=== PATIENT | male | born 1945 | race Caucasian/White ===

== ENCOUNTER 2016-11-29 11:40 | Inpatient (IN) | payer MEDICARE, BC ==
[2016-11-29] MEDS ORDERED: Acetaminophen TAB* 325 MG PO ONE (11:56)
[2016-11-29] MEDS: NS 0.9% 1000 ML* 4,000 ML IV ONE ×4 (12:00→16:00)
[2016-11-29] MEDS ORDERED: Albuterol/Ipratropium NEB.SOL* Albuterol 2.5 MG/Ipratropium 0.5 MG 3 ML INH ONE (12:10)
[2016-11-29] MEDS ORDERED: Levofloxacin 750 MG IVPREMIX(* 750 MG/150 ML BAG IVPB ONE (12:13)
[2016-11-29] MEDS ORDERED: cefTRIAXone VIAL(*) 1,000 MG in NS 0.9% 50 ML* 50 ML IVPB ONE (12:13)
[2016-11-29 12:18] LABS: Hematocrit 41 % (42-52); Hemoglobin 13.8 g/dl (14.0-18.0); Mean Corpuscular HGB Conc 34 g/dl (31-36); Mean Corpuscular Hemoglobin 30 pg (27-31); Mean Corpuscular Volume 89 fL (80-94); Mean Platelet Volume 9 um3 (7.4-10.4); Red Blood Count 4.64 10^6/ul (4.0-5.4); Red Cell Distribution Width 14 % (10.5-15); White Blood Count 16.2 10^3/ul (3.5-10.8)
[2016-11-29 12:19] LABS: Add Diff/Slide Review? Slide Review Added; Comments Flag Yes
--- NOTE | 2016-11-29 12:26 | RAD ---
Indication: Cough, fever. Single frontal view of the chest performed at 1215 hours was reviewed. Comparison is made with previous exam dated November 27, 2016. No mediastinal shift is noted. Heart is of normal size and configuration. Bibasilar atelectasis is noted. No alveolar consolidation is noted. IMPRESSION: HYPERINFLATED LUNG HAWTHORNE WITH BIBASILAR ATELECTASIS.
[2016-11-29] MEDS ORDERED: Albuterol/Ipratropium NEB.SOL* Albuterol 2.5 MG/Ipratropium 0.5 MG 3 ML ONE (12:29)
[2016-11-29 12:37] LABS: Troponin I 0.02 ng/mL (<0.04)
[2016-11-29 12:38] LABS: Albumin 3.3 g/dL (3.2-5.2); BUN/Creatinine Ratio 18.8 (8-20); Calcium 8.9 mg/dL (8.6-10.3); EGFR African American 122.9 (>60); EGFR Non-African American 95.6 (>60); Globulin 3.5 g/dL (2-4); Potassium 3.5 mmol/L (3.5-5.0); Total Bilirubin 0.6 mg/dL (0.2-1.0); Total Protein 6.8 g/dL (6.4-8.9)
[2016-11-29 13:23] LABS: C Reactive Protein 197.9 mg/L (< 5.00)
--- NOTE | 2016-11-29 14:11 | RAD ---
Indication: Syncope. Head injury. CT brain was performed without IV contrast. Ventricular structures are midline. No midline shift is noted. The extraction spaces are unremarkable. There is no evidence of intracranial mass or hemorrhage. No other high or low density lesions are identified. There is mucosal thickening and air-fluid levels in the maxillary sinuses. Opacification of the sphenoid and ethmoid air cells are also noted. IMPRESSION: No intracranial mass or hemorrhage is noted. Chronic and acute sinusitis involving the ethmoid air cells, maxillary sinuses and sphenoid sinuses bilaterally.
--- NOTE | 2016-11-29 15:28 | ED ---
Corky Knapp Rebecca, scribed for Ashwin Marshall MD on 11/29/16 at 1211 . Syncope/Near Syncope - HPI Summary HPI Summary: Pt is a 71 y/o M BIBA who presents to ED s/p syncopal episode. Reports lightheadedness prior to episode. Sx aggravated by nothing, alleviated by spontaneous resolution. Positive LOC and associated head trauma. C/o WAN which was present prior to fall. Additionally c/o chills, fever, productive cough ( discolored phlegm), generalized muscle aches and decreased appetite. Denies CP, edema, neck pain and rashes. Is not on a blood thinner. No PMHx DM. Reports he has been ill for 1 week and had a CXR performed 4 days ago which showed no PNA. He has been on Zithromax, Prednisone, an albuterol inhaler and antitussive for 2 days without relief. - History Of Current Complaint Chief Complaint: EDSyncope Time Seen by Provider: 11/29/16 11:51 Hx Obtained From: Patient Onset/Duration: Sudden Onset Context: Loss Of Consciousness Activity At Onset: Unknown Associated Head Trauma: Yes Aggravating Factor(s): Nothing Alleviating Factor(s): Spontaneous Resolution Associated Signs And Symptoms: Decreased Oral Intake, Head Trauma (Recent), Lightheadedness - prior to LOC, Other - Generalized muscle aches - Allergies/Home Medications Allergies/Adverse Reactions: Allergies Allergy/AdvReac Type Severity Reaction Status Date / Time ENVIRONMENTAL/SEASONAL Allergy EYES Uncoded 06/04/16 09:04 HAYFEVER WATERY, SNEEZE PMH/Surg Hx/FS Hx/Imm Hx Endocrine/Hematology History: Denies: Hx Diabetes, Hx Systemic Lupus Erythematosus Cardiovascular History: Reports: Hx Hypertension - ON MEDICATION Denies: Hx Congestive Heart Failure, Hx Coronary Artery Disease Respiratory History: Reports: Hx Asthma, Hx Sleep Apnea - 11/2013 new CPAP use, compliant GI History: Reports: Hx Gastroesophageal Reflux Disease - CONTROL WITH MEDICATION, Other GI Disorders - acid reflux History: Reports: Other Problems/Disorders - bladder scraping and bladder CA Denies: Hx Kidney Infection, Hx Kidney Stones, Hx Renal Disease Musculoskeletal History: Reports: Hx Arthritis - BILATERAL HANDS, POSSIBLE BACK , Hx Back Problems - sciatica, Hx Tendonitis - RIGHT INNER ANKLE AREA Denies: Hx Rheumatoid Arthritis Sensory History: Reports: Hx Contacts or Glasses - GLASSES, Hx Hearing Aid - BILATERAL - STATES WILL LEAVE HOME Opthamlomology History: Reports: Hx Contacts or Glasses - GLASSES Neurological History: Reports: Hx Migraine - 1-2 PER MONTH, Other Neuro Impairments/Disorders - sciatica Psychiatric History: Reports: Hx Depression - CONTROL WITH MEDICATION - Cancer History Cancer Type, Location and Year: leukemia 2004, bladder CA 2008, lymphoma 2010, bladder CA 2011 Hx Chemotherapy: Yes - Surgical History Surgery Procedure, Year, and Place: spleenectomy 2005, vasectomy, bladder scrapings x3, port implant and removal Hx Anesthesia Reactions: No Infectious Disease History: No Infectious Disease History: Denies: Traveled Outside the [place] in Last 30 Days - Family History Known Family History: Positive: Other - CHF - Social History Alcohol Use: Rare Substance Use Type: Reports: None Hx Tobacco Use: No Review of Systems Positive: Fever, Chills, Other - Generalized muscle aches Negative: Chest Pain Positive: Cough - productive Positive: Other - Decreased appetite Positive: Other - Denies neck pain. Negative: Edema Negative: Rash Positive: Headache, Syncope - positive LOC All Other Systems Reviewed And Are Negative: Yes Physical Exam - Summary Physical Exam Summary: The patient is well-nourished in no acute distress and in no acute pain. The skin is warm, diaphoretic and skin color reflects adequate perfusion. Decreased skin turgor. HEENT: The head is normocephalic and atraumatic. The pupils are equal and reactive. The conjunctivae are clear and without drainage. Nares are patent and without drainage. Mouth reveals dry mucous membranes and the throat is without erythema and exudate. Erythema on the hard palate. The external ears are intact. The ear canals are patent and without drainage. The tympanic membranes are intact. Neck is supple with full range of motion and non-tender. There are no carotid bruits. There is no neck vein distension. Respiratory: Chest is non-tender. Breath sounds are symmetrical and equal. Rales, rhonchi and wheezing. Cardiovascular: Hear is regular rate and rhythm. There is no murmur or rub auscultated. There is no peripheral edema and pulses are symmetrical and equal. Abdomen: The abdomen is obese and non-tender. There are normal bowel sounds heard in all four quadrants and there is no organomegaly palpated. Musculoskeletal: There is no back pain noted. Extremities are non-tender with full range of motion. Capillary refill 2 seconds. There is no peripheral edema or calf tenderness elicited. Neurological: Patient is alert and oriented to person, place and time. The patient has symmetrical motor strength in all four extremities. Cranial nerves are grossly intact. Deep tendon reflexes are symmetrical and equal in all four extremities. Psychiatric: The patient has an appropriate affect and does not exhibit any anxiety or depression. Triage Information Reviewed: Yes Vital Signs On Initial Exam: Initial Vitals Temp Pulse Resp BP Pulse Ox 100.7 F 90 18 142/76 90 11/29/16 11:44 11/29/16 11:44 11/29/16 11:44 11/29/16 11:44 11/29/16 11:44 Vital Signs Reviewed: Yes Diagnostics - Vital Signs Vital Signs Temp Pulse Resp BP Pulse Ox 11/29/16 11:44 100.7 F 90 18 142/76 90 - Laboratory Lab Results: Lab Results 11/29/16 11/29/16 11/29/16 Range/Units 12:00 12:00 12:00 WBC 16.2 H (3.5-10.8) 10^3/ul RBC 4.64 (4.0-5.4) 10^6/ul Hgb 13.8 L (14.0-18.0) g/dl Hct 41 L (42-52) % MCV 89 (80-94) fL MCH 30 (27-31) pg MCHC 34 (31-36) g/dl RDW 14 (10.5-15) % Plt Count 243 (150-450) 10^3/ul MPV 9 (7.4-10.4) um3 Neut % (Auto) 80.6 (38-83) % Lymph % (Auto) 4.5 L (25-47) % [place] % (Auto) 14.5 H (1-9) % Eos % (Auto) 0 (0-6) % Baso % (Auto) 0.4 (0-2) % Absolute Neuts (auto) 13.1 H (1.5-7.7) 10^3/ul Absolute Lymphs (auto) 0.7 L (1.0-4.8) 10^3/ul Absolute Monos (auto) 2.4 H (0-0.8) 10^3/ul Absolute Eos (auto) 0 (0-0.6) 10^3/ul Absolute Basos (auto) 0.1 (0-0.2) 10^3/ul Absolute Nucleated RBC 0 10^3/ul Nucleated RBC % 0 INR (Anticoag Therapy) 1.06 (0.89-1.11) APTT 24.4 L (26.0-36.3) seconds Sodium 131 L (133-145) mmol/L Potassium 3.5 (3.5-5.0) mmol/L Chloride 96 L (101-111) mmol/L Carbon Dioxide 27 (22-32) mmol/L Anion Gap 8 (2-11) mmol/L BUN 15 (6-24) mg/dL Creatinine 0.80 (0.67-1.17) mg/dL Est GFR ( Amer) 122.9 (>60) Est GFR (Non-Af Amer) 95.6 (>60) BUN/Creatinine Ratio 18.8 (8-20) Glucose 121 H (70-100) mg/dL Lactic Acid (0.5-2.0) mmol/L Calcium 8.9 (8.6-10.3) mg/dL Total Bilirubin 0.60 (0.2-1.0) mg/dL AST 24 (13-39) U/L ALT 24 (7-52) U/L Alkaline Phosphatase 54 (34-104) U/L Troponin I 0.02 (<0.04) ng/mL C-Reactive Protein 197.90 H (< 5.00) mg/L Total Protein 6.8 (6.4-8.9) g/dL Albumin 3.3 (3.2-5.2) g/dL Globulin 3.5 (2-4) g/dL Albumin/Globulin Ratio 0.9 L (1-3) Procalcitonin (<0.6) ng/mL Influenza A (Rapid) (Negative) Influenza B (Rapid) (Negative) 11/29/16 11/29/16 11/29/16 Range/Units 12:00 12:00 13:06 WBC (3.5-10.8) 10^3/ul RBC (4.0-5.4) 10^6/ul Hgb (14.0-18.0) g/dl Hct (42-52) % MCV (80-94) fL MCH (27-31) pg MCHC (31-36) g/dl RDW (10.5-15) % Plt Count (150-450) 10^3/ul MPV (7.4-10.4) um3 Neut % (Auto) (38-83) % Lymph % (Auto) (25-47) % [place] % (Auto) (1-9) % Eos % (Auto) (0-6) % Baso % (Auto) (0-2) % Absolute Neuts (auto) (1.5-7.7) 10^3/ul Absolute Lymphs (auto) (1.0-4.8) 10^3/ul Absolute Monos (auto) (0-0.8) 10^3/ul Absolute Eos (auto) (0-0.6) 10^3/ul Absolute Basos (auto) (0-0.2) 10^3/ul Absolute Nucleated RBC 10^3/ul Nucleated RBC % INR (Anticoag Therapy) (0.89-1.11) APTT (26.0-36.3) seconds Sodium (133-145) mmol/L Potassium (3.5-5.0) mmol/L Chloride (101-111) mmol/L Carbon Dioxide (22-32) mmol/L Anion Gap (2-11) mmol/L BUN (6-24) mg/dL Creatinine (0.67-1.17) mg/dL Est GFR ( Amer) (>60) Est GFR (Non-Af Amer) (>60) BUN/Creatinine Ratio (8-20) Glucose (70-100) mg/dL Lactic Acid 1.0 (0.5-2.0) mmol/L Calcium (8.6-10.3) mg/dL Total Bilirubin (0.2-1.0) mg/dL AST (13-39) U/L ALT (7-52) U/L Alkaline Phosphatase (34-104) U/L Troponin I (<0.04) ng/mL C-Reactive Protein (< 5.00) mg/L Total Protein (6.4-8.9) g/dL Albumin (3.2-5.2) g/dL Globulin (2-4) g/dL Albumin/Globulin Ratio (1-3) Procalcitonin 1.5 H (<0.6) ng/mL Influenza A (Rapid) Positive H (Negative) Influenza B (Rapid) Negative (Negative) Result Diagrams: 11/29/16 12:00 11/29/16 12:00 Lab Statement: Any lab studies that have been ordered have been reviewed, and results considered in the medical decision making process. - Radiology CXR Xray Interpretation: Positive (See Comments) - HYPERINFLATED LUNG HAWTHORNE WITH BIBASILAR ATELECTASIS. Radiology Interpretation Completed By: Radiologist - CT Brain CT CT Interpretation Completed By: Radiologist - No intracranial mass or hemorrhage is noted. Chronic and acute sinusitis involving the ethmoid air cells , maxillary sinuses and sphenoid sinuses bilaterally. - EKG 1139 Cardiac Rate: NL - 89 bpm EKG Rhythm: Sinus Rhythm - normal EKG Interpretation: RBBB and intraventricular conduction delay Course/Dx Assessment/Plan: Pt is a 71 y/o M who presents to ED s/p syncopal episode with positive LOC. Additionally c/o chills, fever, productive cough (discolored phlegm), generalized muscle aches and decreased appetite. Denies CP, edema, neck pain and rashes. CXR reveals: HYPERINFLATED LUNG HAWTHORNE WITH BIBASILAR ATELECTASIS. CT brain reveals no acute findings. EKG reveals no acute STEMI. Discussed care of pt with Dr. Clement, hospitalist, who agrees to admit pt. Pt will be admitted to hospitalist services - Diagnoses Differential Diagnosis/HQI/PQRI: Positive: Dysrhythmia, Hypovolemia, Myocardial Infarction, Vasovagal Episode, Other - pneumonia, influenza, sepsis, sinusitis Provider Diagnoses: PNA (pneumonia), Syncope, Influenza - Physician Notifications Discussed Care Of Patient With: Dr. Clement, hospitalist, who agrees to admit pt. Time Discussed With Above Provider: 14:45 Discharge - Discharge Plan Condition: Good Disposition: ADMITTED TO [facility] Referrals: Sherri Braun MD [Primary Care Provider] - The documentation as recorded by the Corky esparza Rebecca accurately reflects the service I personally performed and the decisions made by il, Ashwin Marshall MD.
[2016-11-29 15:37] LABS: Urine Bacteria Absent (Absent); Urine Bilirubin Negative (Negative); Urine Glucose Negative (Negative); Urine Nitrite Negative (Negative)
[2016-11-29] MEDS ORDERED: NS 0.9% 1000 ML* 1,000 ML IV SCH (16:15)
[2016-11-29] MEDS ORDERED: methylPREDNISolone SOD 40 MG* 1 ML VIAL IV SCH (17:00)
--- NOTE | 2016-11-29 19:15 | HP ---
HISTORY AND PHYSICAL: DATE OF ADMISSION: 11/29/16 PROVIDER: Carole Rojas NP ATTENDING PHYSICIAN: Dr. Tariq * (dictated by Carole Rojas NP). PRIMARY CARE PROVIDERS: Enzo Nuñez NP; Dr. Braun. CHIEF COMPLAINT: Syncope, upper respiratory illness. HISTORY OF PRESENT ILLNESS: Mr. Chavez is a 71-year-old male with a past medical history of CLL, bladder CA, lymphoma, hypertension, and hyperlipidemia, who presents to the emergency department today after syncopal episode and also reports upper respiratory illness. Mr. Chavez reports that approximately 6 to 7 days ago, he developed body aches, cough, shortness of breath, fever, chills, decreased appetite. He reports prior to that, his had similar symptoms and believes he caught it from his . The patient has continued to feel sick throughout the week mostly resting and has continued to have headache, body ache, productive cough, and went to see his primary care doctor this past , 2 days ago, and was diagnosed with bronchitis and sent home on azithromycin, prednisone, and albuterol. The patient reports that day he was sitting in his chair and was having a "coughing fit" and reports that he passed out for a few seconds and came to. He felt okay and did not seek any treatments. , when he was evaluated by his primary, he did undergo a chest x-ray which showed bibasilar atelectasis. The patient reports that today he woke up and he actually felt better for the first time, less body aches, continued to have a cough, but felt that it was less severe. He did have a headache this morning, but he noted his appetite to be slightly improved. He was eating at the table when he stood up and had a coughing fit and had a syncopal episode, passing out, and hitting his forehead on the on the way down. His was at home and reports that he came to fairly quickly and the patient was brought to the emergency department for further evaluation. In the emergency department, the patient reports headache. He denies vision changes. No numbness, tingling, or speech changes. He underwent a brain CT which was negative for intracranial mass or hemorrhage. There was chronic and acute sinusitis noted in the ethmoid air cells, maxillary sinuses, and sphenoid sinuses bilaterally. The patient underwent a chest x-ray which showed bibasilar atelectasis. He was noted to be hypoxic and is currently on 3 L in the emergency department with O2 sat of 97%. The patient has a leukocytosis of 16.2 as well as a procalcitonin of 1.5, CRP of 197, and noted to have a sodium of 131. As well, the patient tested positive for influenza A. The patient reports a 15-pound weight loss in the past week due to poor intake, reporting his baseline weight is about 253 pounds and today, he noted to be 238. Please note this is taken on two different scales. The patient denies any sore throat, ear pain, nausea, or vomiting. Reports 2 episodes of loose stools a couple of days ago. Otherwise, no diarrhea. No abdominal pain. Hospital Medicine will admit the patient for sepsis secondary to influenza A with possible acute bronchitis and sinusitis. Per the patient, he underwent a cardiac stress test approximately 7 to 8 days ago prior to getting ill due to having palpitations and intermittent "chest pains" and reports that he is following up with Dr. Fitzpatrick on December 04 as an outpatient. The patient denies any chest pain currently. PAST MEDICAL HISTORY: 1. Distant tobacco abuse, smoking 3 packs a day, quitting approximately 23 years ago. 2. 2003, diagnosed with CLL, followed by Dr. Glaser, in remission. 3. 2008, diagnosed with bladder cancer. 4. 2010, diagnosed with lymphoma, in remission. 5. 2011, diagnosed with return of bladder cancer, now in remission. 6. History of skin cancer, basal and squamous cell melanoma. 7. Hypertension. 8. Hyperlipidemia. 9. 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 HOME MEDICATIONS: 1. Aspirin 81 mg p.o. bedtime. 2. Aspirin/acetaminophen/caffeine 250/250/65 mg 1 tab p.o. daily p.r.n. migraine. 3. Atorvastatin 10 mg p.o. at bedtime. 4. Avodart 0.5 mg p.o. q.a.m. 5. Ibuprofen 400 mg p.o. q.6 hours p.r.n. 6. MiraLAX 17 g p.o. every other day p.r.n. 7. Sodium chloride 5% ophth ointment 1 application both eyes bedtime. 8. Sodium chloride 5% ophth 1 drop both eyes four times a day. 9. Flomax 0.8 mg p.o. bedtime. 10. Valsartan/hydrochlorothiazide 160/12.5 mg 1 tab p.o. daily. ALLERGIES: No known drug allergies, environmental/seasonal, hay fever. FAMILY HISTORY: The patient's mother had a history of breast cancer, coronary artery disease. Father of a dissected aorta. SOCIAL HISTORY: Tobacco history: Three packs a day, quitting 23 years ago, smoking for more than 20 years. Alcohol: One glass of wine a day. 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 He lives at home with his , Jade, who is his healthcare proxy. He has 2 grown children. REVIEW OF SYSTEMS: A 14-point review of systems was performed. All the pertinent positives and negatives are mentioned in the history of present illness. All the remaining systems are negative. PHYSICAL EXAMINATION GENERAL APPEARANCE: A 71-year-old male lying in the emergency department stretcher with at the bedside. Alert and oriented x3 in no acute distress. Appears mildly ill. Appropriate to situation. VITAL SIGNS: Fever 100.7, heart rate 99, respirations 17, O2 sat 97% on 3 L nasal cannula, blood pressure 103/58. HEENT: Head is normocephalic, atraumatic. Pupils equal and reactive to light. Oropharynx is clear. No erythema or exudate noted. Dry mucous membranes. Good dentition. NECK: No cervical or supraclavicular lymphadenopathy. RESPIRATORY: Diminished bilaterally. Right lower lobe, scattered rhonchi. The patient was noted to have a harsh cough. CARDIAC: S1, S2. No murmurs, rubs, or gallops appreciated. No lower extremity edema noted. 2+ DP pulses bilaterally. ABDOMEN: Obese, soft, nontender, nondistended. Normal bowel sounds x4. MUSCULOSKELETAL: Strength is 5/5 throughout. No clubbing or cyanosis noted. Full range of motion in all extremities. NEURO: Cranial nerves II through XII are intact. Moves all extremities equally. Sensation to lower extremities is intact to light touch. PSYCH: Alert and oriented x3. Appropriate to situation. SKIN: No rashes, lesions, or open wounds noted. Warm, pink, and dry. DIAGNOSTIC STUDIES/LAB DATA: Sodium 131, potassium 3.5, chloride 96, carbon dioxide 27, anion gap 8, BUN 15, creatinine 0.80, glucose 121, lactic acid 1.0, calcium 8.9. Total bilirubin 0.60, AST 24, ALT 24, alkaline phosphatase 54. Troponin 0.02. C-reactive protein 197.90, total protein , albumin 3.3, procalcitonin 1.5. WBC 16.2, RBC 4.64, Hgb 13.8, Hct 41, MCV 89, MCH 30, MCHC 34, RDW 14, platelet count 243. INR 1.06, aPTT 24.4. Urinalysis: Specific gravity 1.004, 1+ blood, otherwise negative. Influenza A positive, influenza B negative. Brain CT, impression: No intracranial mass or hemorrhage is noted. Chronic and acute sinusitis involving the ethmoid air cells, maxillary sinuses, and sphenoid sinuses bilaterally. Chest x-ray, impression: Hyperinflated lung dennis with bibasilar atelectasis. EKG: Sinus rhythm at a rate of 89 with right bundle branch block noted in comparison to prior EKG, appears similar, no acute ischemic changes noted. ASSESSMENT AND PLAN: Mr. Chavez is a 71-year-old male with a past medical history of chronic lymphocytic leukemia, lymphoma, bladder cancer, hypertension , and hyperlipidemia, who presents to the emergency department today with report of syncopal episode and upper respiratory symptoms. 1. Sepsis secondary to influenza: The patient's qSOFA is 0; however, the patient does present with a leukocytosis, heart rate of greater than 90, and fever. There is no lactic acidosis. As well, he most likely has acute bronchitis and sinusitis. We will start the patient on Tamiflu and we will continue the patient's azithromycin as he was prescribed as an outpatient as the patient actually reports that he is starting to feel better today. Continue steroid therapy as prescribed as an outpatient and prednisone 40 mg daily. The patient received 4 L of normal saline in the emergency department. We will continue him with normal saline at a rate of 75 mL an hour. Add on sputum culture. DuoNebs q.4 hours while awake, then p.r.n. Mucinex. 2. Syncope. Suspect this is secondary to situational syncope secondary to coughing. We will monitor the patient on telemetry. Initial troponin is negative. We will trend troponins. Obtain orthostatics. Echocardiogram tomorrow. 3. Hyponatremia, mild: Suspect secondary to dehydration. Recheck tomorrow. 4. Normocytic anemia: Unclear etiology. Send stool for occult blood. 5. Chronic lymphocytic leukemia, lymphoma, and bladder cancer: Followed by Dr. Glaser, in remission. 6. Hypertension: The patient currently has soft blood pressures in the emergency department. Hold valsartan/hydrochlorothiazide. Continue to monitor. 7. Hyperlipidemia: Continue atorvastatin. 8. DVT prophylaxis: Heparin subcu. 9. Code status: Full code. The patient's is the healthcare proxy. TIME SPENT: Approximately 60 minutes was spent on this admission. This case was discussed with attending physician, Dr. Tariq, who agrees with the plan of care. CAROLE ROJAS NP CC: Enzo Nuñez NP; Dr. Braun* [id number]/[facility] #: [id number] RICHI
[2016-11-29] MEDS: Acetaminophen TAB* 325 MG PO PRN (19:35)
[2016-11-29] MEDS: Albuterol/Ipratropium NEB.SOL* Albuterol 2.5 MG/Ipratropium 0.5 MG 3 ML INH SCH ×2 (20:07→23:57)
[2016-11-29] MEDS: Aspirin Low Dose CHEW TAB* 81 MG PO SCH (20:23)
[2016-11-29] MEDS: guaiFENesin ER TAB 600 MG PO SCH (20:23)
[2016-11-29] MEDS: Oseltamivir CAP* 75 MG PO SCH (20:24)
[2016-11-29] MEDS: Tamsulosin CAP* 0.4 MG PO SCH (20:24)
[2016-11-29] MEDS: Atorvastatin* 10 MG TAB PO SCH (20:24)
[2016-11-29] MEDS: Sodium Chloride 5% OPTH.SOL* 15 ML BTL BOTH EYES SCH (20:25)
[2016-11-29] MEDS: Heparin VIAL(*) 5000 UNITS/ML VIAL (FIVE THOUSAND) SUBCUT SCH (20:26)
[2016-11-30] MEDS: Albuterol/Ipratropium NEB.SOL* Albuterol 2.5 MG/Ipratropium 0.5 MG 3 ML INH SCH ×3 (00:32→08:10)
[2016-11-30 05:25] LABS: Hematocrit 38 % (42-52); Hemoglobin 12.6 g/dl (14.0-18.0); Mean Corpuscular HGB Conc 33 g/dl (31-36); Mean Corpuscular Hemoglobin 30 pg (27-31); Mean Corpuscular Volume 89 fL (80-94); Mean Platelet Volume 9 um3 (7.4-10.4); Red Blood Count 4.24 10^6/ul (4.0-5.4); Red Cell Distribution Width 14 % (10.5-15); White Blood Count 14.7 10^3/ul (3.5-10.8)
[2016-11-30 05:30] LABS: Add Diff/Slide Review? Slide Review Added; Comments Flag Yes
[2016-11-30 05:47] LABS: Calcium 8.2 mg/dL (8.6-10.3); EGFR African American 132.4 (>60); Potassium 3.9 mmol/L (3.5-5.0)
[2016-11-30] MEDS: Heparin VIAL(*) 5000 UNITS/ML VIAL (FIVE THOUSAND) SUBCUT SCH ×3 (05:59→22:30)
[2016-11-30] MEDS: Finasteride TAB* 5 MG PO SCH (09:17)
[2016-11-30] MEDS: Sodium Chloride 5% OPTH.SOL* 15 ML BTL BOTH EYES SCH ×4 (09:17→22:28)
[2016-11-30] MEDS: Oseltamivir CAP* 75 MG PO SCH ×2 (09:17→22:29)
[2016-11-30] MEDS: predniSONE TAB* 20 MG PO SCH (09:17)
[2016-11-30] MEDS: guaiFENesin ER TAB 600 MG PO SCH (09:17)
[2016-11-30] MEDS: Azithromycin TAB* 250 MG PO SCH (09:17)
[2016-11-30] MEDS ORDERED: GuaiFENesin DM* 5 ML UDC PO PRN (09:47)
[2016-11-30] MEDS ORDERED: Albuterol/Ipratropium NEB.SOL* Albuterol 2.5 MG/Ipratropium 0.5 MG 3 ML INH PRN (09:50)
[2016-11-30] MEDS: Acetaminophen TAB* 325 MG PO PRN (10:24)
--- NOTE | 2016-11-30 10:49 | RAD ---
Indication: Hypoxia. 2 views of the chest demonstrates bibasilar increased density which may represent atelectasis or early pneumonia. No pleural fluid is identified. No mediastinal shift is noted. Findings are more prominent than on previous exam of November 29, 2016. IMPRESSION: Increased density in the lung bases which may represent atelectasis or early infiltrates.
--- NOTE | 2016-11-30 12:19 | ECHO ---
Patient: MEGHANA CANCINO Rec#: [id number] : 1945 Date: 11/30/2016 Age: 71y Height: 175.3 cm / 69.0 in Weight: 112 kg / 246.8 lbs Sex: M BSA: 2.3 Room#: 451 Admit Date#: 11/29/2016 Type: Inpatient Referring: Layla Olivares Reading: Vincent Subramanian MD [id number] Consultant: Rere Youngblood RN RDCS CC: Sherri Braun MD Transthoracic Echocardiogram Indication: Syncope BP: 138/72 HR: 86 Rhythm: NSR with PVCs Findings History: HTN, HLD, CLL, bladder cancer, lymphoma, chemotherapy, former smoker, obesity Technical Comments: The study is technically limited due to patient body habitus. The study is technically limited due to the patient's smoking history. Completed at 1130. Left Ventricle: The left ventricular chamber size is normal. Global left ventricular wall motion and contractility are within normal limits. There is normal left ventricular systolic function. The estimated ejection fraction is 55-60%. Abnormal left ventricular diastolic function is observed. Left Atrium: The left atrium is mildly dilated. Right Ventricle: The right ventricular cavity size is normal. The right ventricular global systolic function is normal. Right Atrium: The right atrium is mildly dilated. Aortic Valve: The aortic valve is trileaflet. The aortic valve leaflets are mildly thickened. There is no evidence of aortic regurgitation. There is no evidence of aortic stenosis. Mitral Valve: The mitral valve leaflets are mildly thickened. There is trace to mild mitral regurgitation. Tricuspid Valve: The tricuspid valve leaflets are normal. There is trace tricuspid regurgitation. Unable to estimate the right ventricular systolic pressure. Pulmonic Valve: The pulmonic valve structure is not well visualized. There is no evidence of pulmonic regurgitation. There is no pulmonic stenosis. Pericardium: There is no significant pericardial effusion. A pericardial fat pad is visualized. Aorta: There is no dilatation of the ascending aorta. There is no dilatation of the aortic arch. The aortic root is normal in size. Pulmonary Artery: The main pulmonary artery is not well visualized. Venous: The inferior vena cava appears normal in size. There is a greater than 50% respiratory change in the inferior vena cava dimension. Conclusions There is normal left ventricular systolic function. The estimated ejection fraction is 55-60%. Global left ventricular wall motion and contractility are within normal limits. The left ventricular chamber size is normal. Abnormal left ventricular diastolic function is observed. The left atrium is mildly dilated. The right atrium is mildly dilated. Functionally benign heart valves. There is no prior echocardiogram available to compare with at this time. Measurements Name Value Normal Range RVDdMajor (2D) 4.3 cm (2.2 - 4.4) RAd ISD 4CH 5.2 cm (3.4 - 4.9) RA (A4C)W 4.3 cm (2.9 - 4.6) IVSd (2D) 1.2 cm (0.6 - 1) LVPWd (2D) 1 cm (0.6 - 1) LVIDd (2D) 4.8 cm (3.6 - 5.4) LVIDs (2D) 4 cm - LV FS (2D) 17 % (25 - 45) Aortic Annulus 2.2 cm (1.4 - 2.6) Ao root diameter (2D) 3 cm (2.1 - 3.5) Ascending Ao 3.4 cm (2.1 - 3.4) Aortic arch 2.5 cm (1.8 - 3.4) LA dimension (AP) 2D 3.7 cm (2.3 - 3.8) LAd ISD 4CH 5.9 cm (2.9 - 5.3) LA ISD 4CH W 4.8 cm (2.5 - 4.5) Name Value Normal Range LA ESV SP 4CH (A/L) 73 ml - LA ESV SP 2CH (A/L) 61 ml - LA ESV BP (A/L) 68 ml - LA ESV BP (A/L) index 30.2 ml/m2 - LA ESV SP 4CH (MOD) 69 ml - LA ESV SP 2CH (MOD) 59 ml - Name Value Normal Range MV E-wave Vmax 1 m/sec - MV deceleration time 190 msec - MV A-wave Vmax 0.97 m/sec - MV E:A ratio 1.1 ratio - LV septal e' Vmax 0.09 m/sec - LV lateral e' Vmax 0.11 m/sec - LV E:e' septal ratio 11.1 ratio - LV E:e' lateral ratio 9.1 ratio - Name Value Normal Range AV Vmax 1.9 m/sec - LVOT Vmax 1.5 m/sec - BRENT Vmax 0.89 m/sec - Name Value Normal Range IVC diameter 1.7 cm - Name Value Normal Range PV Vmax 0.96 m/sec -
[2016-11-30] MEDS: Meclizine TAB* 12.5 MG PO SCH ×2 (12:30→22:28)
--- NOTE | 2016-11-30 14:20 | PN ---
Subjective Date of Service: 11/30/16 Interval History: Patient reports he continues to feel "crappy" but does not improvement compared to the last week. Feels that he is slowly improving. No fevers or chills. Productive cough. Improved appetite today. No Abdominal pain, N/V/D. Denies myalgias. No CP or SOB. No further syncopal episodes. Objective Active Medications: Acetaminophen (Tylenol Tab*) 650 mg PO Q6H PRN PRN Reason: FEVER/PAIN Last Admin: 11/30/16 10:24 Dose: 650 mg Albuterol/Ipratropium (Duoneb Neb.Yamilet*) 1 neb INH Q4H PRN PRN Reason: SHORTNESS OF BREATH Aspirin (Aspirin Low Dose Tab*) 81 mg PO BEDTIME REPLACED BY [facility] Last Admin: 11/29/16 20:23 Dose: 81 mg Atorvastatin Calcium (Lipitor*) 10 mg PO BEDTIME REPLACED BY [facility] Last Admin: 11/29/16 20:24 Dose: 10 mg Azithromycin (Zithromax Tab*) 250 mg PO DAILY REPLACED BY [facility] Last Admin: 11/30/16 09:17 Dose: 250 mg Finasteride (Proscar Tab*) 5 mg PO QAM REPLACED BY [facility] PRN Reason: Protocol Last Admin: 11/30/16 09:17 Dose: 5 mg Guaifenesin/Dextromethorphan (Robitussin Dm*) 10 ml PO Q4H PRN PRN Reason: COUGH Heparin Sodium (Porcine) (Heparin Vial(*)) 5,000 units SUBCUT Q8HR REPLACED BY [facility] Last Admin: 11/30/16 05:59 Dose: 5,000 units Meclizine HCl (Antivert Tab*) 25 mg PO Q8HR REPLACED BY [facility] Last Admin: 11/30/16 12:30 Dose: 25 mg Oseltamivir Phosphate (Tamiflu Cap*) 75 mg PO BID REPLACED BY [facility] Stop: 12/04/16 09:01 Last Admin: 11/30/16 09:17 Dose: 75 mg Prednisone (Deltasone Tab*) 40 mg PO DAILY REPLACED BY [facility] Last Admin: 11/30/16 09:17 Dose: 40 mg Sodium Chloride (Hypertonic) ([place] 128 Opth 5% Opth.Soll*) 1 drop BOTH EYES QID REPLACED BY [facility] Last Admin: 11/30/16 09:17 Dose: 1 drop Tamsulosin HCl (Flomax Cap*) 0.8 mg PO BEDTIME REPLACED BY [facility] Last Admin: 11/29/16 20:24 Dose: 0.8 mg Vital Signs 11/29/16 11/29/16 11/29/16 16:30 17:00 17:09 Temperature 98.6 F Pulse Rate 76 73 Respiratory 16 17 Rate Blood Pressure 109/58 128/52 (mmHg) O2 Sat by Pulse 92 93 Oximetry 11/29/16 11/29/16 11/29/16 18:01 18:02 19:38 Temperature 97.9 F 98.2 F Pulse Rate 72 78 85 Respiratory 20 16 Rate Blood Pressure 139/71 143/74 144/72 (mmHg) O2 Sat by Pulse 93 95 Oximetry 11/29/16 11/29/16 11/30/16 20:00 20:10 00:33 Temperature Pulse Rate 89 80 Respiratory 20 20 Rate Blood Pressure (mmHg) O2 Sat by Pulse 95 95 99 Oximetry 11/30/16 11/30/16 11/30/16 00:56 03:36 08:07 Temperature 98.3 F 97.8 F 97.8 F Pulse Rate 81 78 71 Respiratory 20 20 16 Rate Blood Pressure 146/67 138/72 134/79 (mmHg) O2 Sat by Pulse 96 96 95 Oximetry 11/30/16 11/30/16 08:13 12:05 Temperature 98.8 F Pulse Rate 81 74 Respiratory 16 16 Rate Blood Pressure 142/67 (mmHg) O2 Sat by Pulse 96 94 Oximetry Oxygen Devices in Use Now: Nasal Cannula - 2L NC Appearance: obese male sitting up on the side of the bed in NAD. A+O x3 Eyes: No Scleral Icterus, PERRLA Ears/Nose/Mouth/Throat: NL Teeth, Lips, Gums, Mucous Membranes Moist Neck: NL Appearance and Movements; NL JVP Respiratory: Symmetrical Chest Expansion and Respiratory Effort, - - course rhonchi throughout Cardiovascular: NL Sounds; No Murmurs; No JVD, RRR, No Edema Abdominal: NL Sounds; No Tenderness; No Distention, - - obese, round Lymphatic: No Cervical Adenopathy Extremities: No Edema, No Clubbing, Cyanosis Skin: No Rash or Ulcers, No Nodules or Sclerosis Neurological: Alert and Oriented x 3, NL Sensation, NL Gait, NL Muscle Strength and Tone Lines/Tubes/Other Access: Clean, Dry and Intact Peripheral IV Nutrition: Taking PO's Result Diagrams: 11/30/16 04:43 11/30/16 04:43 Additional Lab and Data: Lab Results 11/29/16 11/29/16 11/29/16 Range/Units 12:00 12:00 12:00 WBC 16.2 H (3.5-10.8) 10^3/ul RBC 4.64 (4.0-5.4) 10^6/ul Hgb 13.8 L (14.0-18.0) g/dl Hct 41 L (42-52) % MCV 89 (80-94) fL MCH 30 (27-31) pg MCHC 34 (31-36) g/dl RDW 14 (10.5-15) % Plt Count 243 (150-450) 10^3/ul MPV 9 (7.4-10.4) um3 Neut % (Auto) 80.6 (38-83) % Lymph % (Auto) 4.5 L (25-47) % [place] % (Auto) 14.5 H (1-9) % Eos % (Auto) 0 (0-6) % Baso % (Auto) 0.4 (0-2) % Absolute Neuts (auto) 13.1 H (1.5-7.7) 10^3/ul Absolute Lymphs (auto) 0.7 L (1.0-4.8) 10^3/ul Absolute Monos (auto) 2.4 H (0-0.8) 10^3/ul Absolute Eos (auto) 0 (0-0.6) 10^3/ul Absolute Basos (auto) 0.1 (0-0.2) 10^3/ul Absolute Nucleated RBC 0 10^3/ul Nucleated RBC % 0 INR (Anticoag Therapy) 1.06 (0.89-1.11) APTT 24.4 L (26.0-36.3) seconds Sodium 131 L (133-145) mmol/L Potassium 3.5 (3.5-5.0) mmol/L Chloride 96 L (101-111) mmol/L Carbon Dioxide 27 (22-32) mmol/L Anion Gap 8 (2-11) mmol/L BUN 15 (6-24) mg/dL Creatinine 0.80 (0.67-1.17) mg/dL Est GFR ( Amer) 122.9 (>60) Est GFR (Non-Af Amer) 95.6 (>60) BUN/Creatinine Ratio 18.8 (8-20) Glucose 121 H (70-100) mg/dL Lactic Acid (0.5-2.0) mmol/L Calcium 8.9 (8.6-10.3) mg/dL Total Bilirubin 0.60 (0.2-1.0) mg/dL AST 24 (13-39) U/L ALT 24 (7-52) U/L Alkaline Phosphatase 54 (34-104) U/L Troponin I 0.02 (<0.04) ng/mL C-Reactive Protein 197.90 H (< 5.00) mg/L Total Protein 6.8 (6.4-8.9) g/dL Albumin 3.3 (3.2-5.2) g/dL Globulin 3.5 (2-4) g/dL Albumin/Globulin Ratio 0.9 L (1-3) Procalcitonin (<0.6) ng/mL Influenza A (Rapid) (Negative) Influenza B (Rapid) (Negative) 11/29/16 11/29/16 11/29/16 Range/Units 12:00 12:00 13:06 WBC (3.5-10.8) 10^3/ul RBC (4.0-5.4) 10^6/ul Hgb (14.0-18.0) g/dl Hct (42-52) % MCV (80-94) fL MCH (27-31) pg MCHC (31-36) g/dl RDW (10.5-15) % Plt Count (150-450) 10^3/ul MPV (7.4-10.4) um3 Neut % (Auto) (38-83) % Lymph % (Auto) (25-47) % [place] % (Auto) (1-9) % Eos % (Auto) (0-6) % Baso % (Auto) (0-2) % Absolute Neuts (auto) (1.5-7.7) 10^3/ul Absolute Lymphs (auto) (1.0-4.8) 10^3/ul Absolute Monos (auto) (0-0.8) 10^3/ul Absolute Eos (auto) (0-0.6) 10^3/ul Absolute Basos (auto) (0-0.2) 10^3/ul Absolute Nucleated RBC 10^3/ul Nucleated RBC % INR (Anticoag Therapy) (0.89-1.11) APTT (26.0-36.3) seconds Sodium (133-145) mmol/L Potassium (3.5-5.0) mmol/L Chloride (101-111) mmol/L Carbon Dioxide (22-32) mmol/L Anion Gap (2-11) mmol/L BUN (6-24) mg/dL Creatinine (0.67-1.17) mg/dL Est GFR ( Amer) (>60) Est GFR (Non-Af Amer) (>60) BUN/Creatinine Ratio (8-20) Glucose (70-100) mg/dL Lactic Acid 1.0 (0.5-2.0) mmol/L Calcium (8.6-10.3) mg/dL Total Bilirubin (0.2-1.0) mg/dL AST (13-39) U/L ALT (7-52) U/L Alkaline Phosphatase (34-104) U/L Troponin I (<0.04) ng/mL C-Reactive Protein (< 5.00) mg/L Total Protein (6.4-8.9) g/dL Albumin (3.2-5.2) g/dL Globulin (2-4) g/dL Albumin/Globulin Ratio (1-3) Procalcitonin 1.5 H (<0.6) ng/mL Influenza A (Rapid) Positive H (Negative) Influenza B (Rapid) Negative (Negative) Assess/Plan/Problems-Billing Assessment: Mr. Chavez is a 71 yo male with a PMH of CLL, bladder CA, lymphoma, HTN and HLD who presented on 11/29 with c/o syncopal episode and upper respiratory illness found to have Influenza. - Patient Problems (1) Sepsis Comment: - resolved. secondary to Influenza A - received a total of 5 liters NS on admission - no lactic acidosis (2) Influenza A Comment: - Influenza A. Slow improvement - Continue Tamiflu for 10 doses. (3) Syncope Comment: - suspect situational cough syncope. No further episodes. No arrythmias noted on Tele. TTE showing 55-60%, global left ventricular wall motion and contractility are WNLs, abnormal left diastolic function is observed, functionally benign heart valves. - D/C Tele (4) Acute bronchitis Comment: - improving, continues to have wild rhonchi and sputum production. increased oxygen requirement 2L NC. Repeat chest xray this morning "Increased density in the lung base which may represent atelectasis or early infiltrates". Afebrile, WBC 14, down from 16, but is on steroids. Will continue to watch and if patient has an increase in oxygen requirements, fever, increased WBCs or clincially appears worse - will tx for PNA, plan to monitor and continue azithromycin only for now as clinically the pt appears to be improving, - last dose tomorrow of azith tomorrow to finish 5 day course - Procalcitonin trending down - Robutussin DM - nebs - Prednisone 40 mg daily, last dose tomorrow to finish 5 day course (5) HTN (hypertension) Comment: - blood pressures SBP 130-140s. - Continue Valsartan, hold HCTZ (6) HLD (hyperlipidemia) Comment: -continue statin (7) CLL (chronic lymphocytic leukemia) Comment: - followed by [facility], in remission (8) Lymphoma Comment: - followed by [facility], in remission (9) DVT prophylaxis Comment: HSQ (10) Full code status Status and Disposition: inpatient with Sepsis secondary to Influenza. Home when medically stable
[2016-11-30] MEDS ORDERED: Valsartan TAB* 160 MG PO ONE (14:34)
[2016-11-30] MEDS: Tamsulosin CAP* 0.4 MG PO SCH (22:29)
[2016-11-30] MEDS: Atorvastatin* 10 MG TAB PO SCH (22:30)
[2016-11-30] MEDS: Aspirin Low Dose CHEW TAB* 81 MG PO SCH (22:30)
[2016-12-01 05:33] LABS: Hematocrit 37 % (42-52); Hemoglobin 12.3 g/dl (14.0-18.0); Mean Corpuscular HGB Conc 34 g/dl (31-36); Mean Corpuscular Hemoglobin 30 pg (27-31); Mean Corpuscular Volume 89 fL (80-94); Mean Platelet Volume 9 um3 (7.4-10.4); Red Blood Count 4.11 10^6/ul (4.0-5.4); Red Cell Distribution Width 14 % (10.5-15); White Blood Count 13.6 10^3/ul (3.5-10.8)
[2016-12-01 05:35] LABS: Add Diff/Slide Review? Slide Review Added; Comments Flag Yes
[2016-12-01] MEDS: Meclizine TAB* 12.5 MG PO SCH ×2 (05:35→14:59)
[2016-12-01] MEDS: Heparin VIAL(*) 5000 UNITS/ML VIAL (FIVE THOUSAND) SUBCUT SCH ×2 (05:36→14:57)
[2016-12-01 05:44] LABS: BUN/Creatinine Ratio 16.7 (8-20); Calcium 8.6 mg/dL (8.6-10.3); EGFR African American 126.6 (>60); EGFR Non-African American 98.4 (>60); Potassium 4.1 mmol/L (3.5-5.0)
[2016-12-01 06:01] LABS: Immature Granulocytes 1 % (0-9); Myelocytes % 1 % (0-1); Neutrophil % 70 % (38-83); Reactive Lymph % 1 % (0-6)
[2016-12-01 06:02] LABS: RBC Morphology Normal (Normal)
[2016-12-01 08:09] VITALS: BP 135/72
[2016-12-01] MEDS: Finasteride TAB* 5 MG PO SCH (08:15)
[2016-12-01] MEDS: Azithromycin TAB* 250 MG PO SCH (08:16)
[2016-12-01] MEDS: predniSONE TAB* 20 MG PO SCH (08:16)
[2016-12-01] MEDS: Sodium Chloride 5% OPTH.SOL* 15 ML BTL BOTH EYES SCH ×4 (08:17→20:07)
[2016-12-01] MEDS: Oseltamivir CAP* 75 MG PO SCH ×2 (08:17→20:03)
[2016-12-01] MEDS ORDERED: Valsartan TAB* 160 MG PO SCH (09:00)
[2016-12-01] MEDS ORDERED: Hydrochlorothiazide TAB* 25 MG PO ONE (09:45)
--- NOTE | 2016-12-01 09:45 | PN ---
Subjective Date of Service: 12/01/16 Interval History: Patient reports he "had a rough night up coughing all night" reports some sputum production but not much. No fever or chills. no further syncopal episodes. Good appetite. No N/V/D. DEnies SOB or CP. Objective Active Medications: Acetaminophen (Tylenol Tab*) 650 mg PO Q6H PRN PRN Reason: FEVER/PAIN Last Admin: 11/30/16 10:24 Dose: 650 mg Albuterol/Ipratropium (Duoneb Neb.Yamilet*) 1 neb INH Q4H PRN PRN Reason: SHORTNESS OF BREATH Aspirin (Aspirin Low Dose Tab*) 81 mg PO BEDTIME [facility] Last Admin: 11/30/16 22:30 Dose: 81 mg Atorvastatin Calcium (Lipitor*) 10 mg PO BEDTIME [facility] Last Admin: 11/30/16 22:30 Dose: 10 mg Azithromycin (Zithromax Tab*) 250 mg PO DAILY [facility] Last Admin: 12/01/16 08:16 Dose: 250 mg Finasteride (Proscar Tab*) 5 mg PO QAM [facility] PRN Reason: Protocol Last Admin: 12/01/16 08:15 Dose: 5 mg Guaifenesin/Dextromethorphan (Robitussin Dm*) 10 ml PO Q4H PRN PRN Reason: COUGH Heparin Sodium (Porcine) (Heparin Vial(*)) 5,000 units SUBCUT Q8HR [facility] Last Admin: 12/01/16 05:36 Dose: 5,000 units Meclizine HCl (Antivert Tab*) 25 mg PO Q8HR [facility] Last Admin: 12/01/16 05:35 Dose: 25 mg Oseltamivir Phosphate (Tamiflu Cap*) 75 mg PO BID [facility] Stop: 12/04/16 09:01 Last Admin: 12/01/16 08:17 Dose: 75 mg Prednisone (Deltasone Tab*) 40 mg PO DAILY [facility] Last Admin: 12/01/16 08:16 Dose: 40 mg Sodium Chloride (Hypertonic) ([place] 128 Opth 5% Opth.Soll*) 1 drop BOTH EYES QID [facility] Last Admin: 12/01/16 08:17 Dose: 1 drop Tamsulosin HCl (Flomax Cap*) 0.8 mg PO BEDTIME [facility] Last Admin: 11/30/16 22:29 Dose: 0.8 mg Valsartan (Diovan Tab*) 160 mg PO DAILY [facility] Last Admin: 12/01/16 08:16 Dose: 160 mg Vital Signs 11/30/16 11/30/16 11/30/16 10:45 12:05 15:40 Temperature 98.8 F 97.5 F Pulse Rate 74 70 Respiratory 16 20 Rate Blood Pressure 142/67 145/67 (mmHg) O2 Sat by Pulse 95 94 95 Oximetry 11/30/16 11/30/16 11/30/16 17:11 20:00 20:42 Temperature Pulse Rate Respiratory 20 Rate Blood Pressure (mmHg) O2 Sat by Pulse 95 95 Oximetry 11/30/16 12/01/16 12/01/16 23:11 00:23 07:31 Temperature 98.1 F 98.3 F Pulse Rate 56 56 Respiratory 18 20 18 Rate Blood Pressure 148/71 135/72 (mmHg) O2 Sat by Pulse 98 98 Oximetry Oxygen Devices in Use Now: Nasal Cannula - 2L NC Result Diagrams: 12/01/16 05:19 12/01/16 05:19 Additional Lab and Data: Lab Results 11/29/16 11/29/16 11/29/16 Range/Units 12:00 12:00 12:00 WBC 16.2 H (3.5-10.8) 10^3/ul RBC 4.64 (4.0-5.4) 10^6/ul Hgb 13.8 L (14.0-18.0) g/dl Hct 41 L (42-52) % MCV 89 (80-94) fL MCH 30 (27-31) pg MCHC 34 (31-36) g/dl RDW 14 (10.5-15) % Plt Count 243 (150-450) 10^3/ul MPV 9 (7.4-10.4) um3 Neut % (Auto) 80.6 (38-83) % Lymph % (Auto) 4.5 L (25-47) % [place] % (Auto) 14.5 H (1-9) % Eos % (Auto) 0 (0-6) % Baso % (Auto) 0.4 (0-2) % Absolute Neuts (auto) 13.1 H (1.5-7.7) 10^3/ul Absolute Lymphs (auto) 0.7 L (1.0-4.8) 10^3/ul Absolute Monos (auto) 2.4 H (0-0.8) 10^3/ul Absolute Eos (auto) 0 (0-0.6) 10^3/ul Absolute Basos (auto) 0.1 (0-0.2) 10^3/ul Absolute Nucleated RBC 0 10^3/ul Nucleated RBC % 0 INR (Anticoag Therapy) 1.06 (0.89-1.11) APTT 24.4 L (26.0-36.3) seconds Sodium 131 L (133-145) mmol/L Potassium 3.5 (3.5-5.0) mmol/L Chloride 96 L (101-111) mmol/L Carbon Dioxide 27 (22-32) mmol/L Anion Gap 8 (2-11) mmol/L BUN 15 (6-24) mg/dL Creatinine 0.80 (0.67-1.17) mg/dL Est GFR ( Amer) 122.9 (>60) Est GFR (Non-Af Amer) 95.6 (>60) BUN/Creatinine Ratio 18.8 (8-20) Glucose 121 H (70-100) mg/dL Lactic Acid (0.5-2.0) mmol/L Calcium 8.9 (8.6-10.3) mg/dL Total Bilirubin 0.60 (0.2-1.0) mg/dL AST 24 (13-39) U/L ALT 24 (7-52) U/L Alkaline Phosphatase 54 (34-104) U/L Troponin I 0.02 (<0.04) ng/mL C-Reactive Protein 197.90 H (< 5.00) mg/L Total Protein 6.8 (6.4-8.9) g/dL Albumin 3.3 (3.2-5.2) g/dL Globulin 3.5 (2-4) g/dL Albumin/Globulin Ratio 0.9 L (1-3) Procalcitonin (<0.6) ng/mL Influenza A (Rapid) (Negative) Influenza B (Rapid) (Negative) 11/29/16 11/29/16 11/29/16 Range/Units 12:00 12:00 13:06 WBC (3.5-10.8) 10^3/ul RBC (4.0-5.4) 10^6/ul Hgb (14.0-18.0) g/dl Hct (42-52) % MCV (80-94) fL MCH (27-31) pg MCHC (31-36) g/dl RDW (10.5-15) % Plt Count (150-450) 10^3/ul MPV (7.4-10.4) um3 Neut % (Auto) (38-83) % Lymph % (Auto) (25-47) % [place] % (Auto) (1-9) % Eos % (Auto) (0-6) % Baso % (Auto) (0-2) % Absolute Neuts (auto) (1.5-7.7) 10^3/ul Absolute Lymphs (auto) (1.0-4.8) 10^3/ul Absolute Monos (auto) (0-0.8) 10^3/ul Absolute Eos (auto) (0-0.6) 10^3/ul Absolute Basos (auto) (0-0.2) 10^3/ul Absolute Nucleated RBC 10^3/ul Nucleated RBC % INR (Anticoag Therapy) (0.89-1.11) APTT (26.0-36.3) seconds Sodium (133-145) mmol/L Potassium (3.5-5.0) mmol/L Chloride (101-111) mmol/L Carbon Dioxide (22-32) mmol/L Anion Gap (2-11) mmol/L BUN (6-24) mg/dL Creatinine (0.67-1.17) mg/dL Est GFR ( Amer) (>60) Est GFR (Non-Af Amer) (>60) BUN/Creatinine Ratio (8-20) Glucose (70-100) mg/dL Lactic Acid 1.0 (0.5-2.0) mmol/L Calcium (8.6-10.3) mg/dL Total Bilirubin (0.2-1.0) mg/dL AST (13-39) U/L ALT (7-52) U/L Alkaline Phosphatase (34-104) U/L Troponin I (<0.04) ng/mL C-Reactive Protein (< 5.00) mg/L Total Protein (6.4-8.9) g/dL Albumin (3.2-5.2) g/dL Globulin (2-4) g/dL Albumin/Globulin Ratio (1-3) Procalcitonin 1.5 H (<0.6) ng/mL Influenza A (Rapid) Positive H (Negative) Influenza B (Rapid) Negative (Negative) Assess/Plan/Problems-Billing Assessment: Mr. Chavez is a 71 yo male with a PMH of CLL, bladder CA, lymphoma, HTN and HLD who presented on 11/29 with c/o syncopal episode and upper respiratory illness found to have Influenza. - Patient Problems (1) Sepsis Comment: - resolved. secondary to Influenza A - received a total of 5 liters NS on admission - no lactic acidosis (2) Influenza A Comment: - Influenza A. Slow improvement - Continue Tamiflu for 10 doses. (3) Acute bronchitis Comment: - improving slowly. Afebrile, WBC 13, down from 16, but is on steroids. -continues to require oxygen requirement 2L NC - tested off oxygen at rest found to have O2 sat 90-92%. - Repeat chest xray this morning - Procalcitonin normalized today - Robutussin DM - nebs - last dose tomorrow of azith today to finish 5 day course - Prednisone 40 mg daily, last dose today - sputum cx pending (4) Syncope Comment: - suspect situational cough syncope. No further episodes. No arrythmias noted on Tele. TTE showing 55-60%, global left ventricular wall motion and contractility are WNLs, abnormal left diastolic function is observed, functionally benign heart valves. - D/C Tele (5) HTN (hypertension) Comment: - blood pressures SBP 130-140s. - Restart Valsartan/HCTZ (6) HLD (hyperlipidemia) Comment: -continue statin (7) CLL (chronic lymphocytic leukemia) Comment: - followed by [facility], in remission (8) Lymphoma Comment: - followed by [facility], in remission (9) DVT prophylaxis Comment: HSQ (10) Full code status Status and Disposition: inpatient with Sepsis secondary to Influenza. Home when medically stable
--- NOTE | 2016-12-01 12:34 | RAD ---
Indication: Hypoxia. 2 views of the chest including dual energy PA views demonstrates bibasilar atelectasis. When compared to previous exam of November 30, 2016 no significant change is noted. IMPRESSION: Left basilar atelectasis. No pneumonia is identified.
[2016-12-01] MEDS: Aspirin Low Dose CHEW TAB* 81 MG PO SCH (20:02)
[2016-12-01] MEDS: Atorvastatin* 10 MG TAB PO SCH (20:02)
[2016-12-01] MEDS: Tamsulosin CAP* 0.4 MG PO SCH (20:02)
--- NOTE | 2016-12-02 08:55 | DS ---
DISCHARGE SUMMARY: DATE OF ADMISSION: 11/29/16 DATE OF DISCHARGE: 12/01/16 PROVIDER: Layla Olivares NP ATTENDING PHYSICIAN: Dr. Tariq *(report dictated by Layla Olivares NP). PRIMARY CARE PHYSICIAN: Enzo Nuñez NP and Dr. Braun. DIRECT SUPPORT STAFF MEMBER: Dr. Fitzpatrick. PRIMARY DIAGNOSES: 1. Syncope, thought to be secondary to cough syncope. 2. Sepsis secondary to influenza A. 3. Acute bronchitis. 4. Acute sinusitis. 5. Hyponatremia secondary to dehydration. SECONDARY DIAGNOSES: 1. History of chronic lymphocytic leukemia, followed by Dr. Glaser, in remission. 2. Lymphoma, in remission. 3. History of bladder cancer, in remission. 4. Hypertension. 5. Hyperlipidemia. 6. Migraines. DISCHARGE MEDICATIONS: 1. ProAir RespiClick two puffs q.6 hours p.r.n. 2. Flomax 0.4 mg p.o. b.i.d. 3. Keara 28 ophth 5% one drop eyes q.i.d. 4. Sodium chloride 5% ophth ointment one application both eyes 5. Valsartan/hydrochlorothiazide 160/12.5 mg one tab p.o. daily. 6. Aspirin 81 mg p.o. at bedtime. 7. Atorvastatin 10 mg p.o. daily. 8. Aspirin/acetaminophen/caffeine migraine relief 250/250/65 one tab p.o. daily p.r.n. migraines. 9. Avodart 0.5 mg p.o. q.a.m. 10. MiraLax 17 g p.o. every other day p.r.n. 11. Ibuprofen 400 mg p.o. q.6 hours p.r.n. New Medications: 1. Tamiflu 75 mg p.o. b.i.d. for a total of 10 doses. 2. Dulera 200/5 MDI INH q.4 hours b.i.d. for cough. HISTORY OF PRESENT ILLNESS AND HOSPITAL COURSE: Please see history and physical by this scientific technical writer for full admission details; but, in summary, this is a 71-year-old male who presented to the emergency department on 11/29/16 after a syncopal episode and also reported upper respiratory illness, found to have sepsis and influenza A on admission. Mr. Chavez reports approximately 6 to 7 days prior, he developed body aches and cough, shortness of breath, fever, chills, and decreased appetite. He reported he was seen two days prior, was diagnosed with acute bronchitis and sent home on azithromycin, prednisone, and albuterol. He reports on the day of admission he was sitting at the kitchen table, stood up, started to have a "coughing fit" and had a syncopal episode, waking up at the floor. He did hit his forehead on the way down, but did not suffer any other trauma. He also reported two days prior after being seen at the doctor's office, he was sitting in his recliner chair and had a coughing spell and had another syncopal episode. After the patient's syncopal episode in which he struck his head on November 29, he presented to the emergency department and tested positive for influenza A, and met criteria for sepsis. The patient was admitted to the hospitalist service with diagnosis of sepsis secondary to influenza, acute bronchitis, and dehydration. The patient was started on Tamiflu and we continued the patient's azithromycin and prednisone therapy. The patient has had a total of five days of azithromycin and five days of prednisone therapy. The patient has done well throughout hospitalization. He was receiving oxygen therapy with 2 L nasal cannula and was weaned off oxygen today. The patient had a followup chest x-ray which shows no infiltrate. The patient was given IV fluids and his hyponatremia resolved, which was thought to be secondary to dehydration. In regards to the patient's syncopal episode, this was thought to be situational syncope secondary to coughing. He was monitored on telemetry. His troponin were trended which was 0.02, 0.05, and 0.02. No arrhythmias noted on telemetry monitoring. EKG shows sinus rhythm at a rate of 89 with a right bundle branch block. He underwent a transthoracic echocardiogram which showed normal left ventricular systolic function with an EF of 55% to 60% with global left ventricular wall motion contractility within normal limits and functionally benign heart valves. The patient did undergo a brain CT on admission due to striking his head which showed impression: "No intracranial mass or hemorrhage is noted. Chronic and acute sinusitis involving the ethmoid air cells, maxillary sinuses, and sphenoid sinuses bilaterally". The patient has remained hemodynamically stable throughout the hospitalization. On admission, he had a temperature of 100.7, which was his max temp, and has remained afebrile. Blood cultures have no growth day two. Negative urinary antigens for Legionella and streptococcus pneumoniae. Please note his sputum culture is pending. DISCHARGE PLAN: 1. The patient is stable for discharge home. 2. Followup with Dr. Braun on 12/04/16 at 1:30 p.m. 3. The patient reports he has a followup with circular knife cutter machine, Dr. Fitzpatrick, this . He was instructed to keep this appointment. 4. The patient was instructed to rest, drink lots of fluids. Worsening signs and symptoms and when to seek further care were discussed with the patient and his , and they stated understanding. TIME SPENT: Approximately 45 minutes were spent on this discharge. CC: Enzo Nuñez NP; Dr. Braun; Dr. Fitzpatrick * [id number]/[facility] #: [id number] MTDD
[2016-12-02] MEDS ORDERED: Hydrochlorothiazide TAB* 25 MG PO SCH (09:00)
[2016-12-02] MEDS ORDERED: Valsartan TAB* 160 MG PO SCH (09:00)
== END 2016-12-01 20:15 | disposition home or self-care (01) | DRG 872 ==
LOC: ED 11:40 → OBSVTOIN 16:04 → MEDTELE 16:04
PROVIDERS: ADMIT Internal Medicine; ATTEND Internal Medicine
DX: A41.9 Sepsis, unspecified organism (principal); E87.1 Hypo-osmolality and hyponatremia; E86.0 Dehydration; I45.10 Unspecified right bundle-branch block; D64.9 Anemia, unspecified; C91.11 Chronic lymphocytic leukemia of B-cell type in remission; I10 Essential (primary) hypertension; J98.11 Atelectasis; E78.5 Hyperlipidemia, unspecified; J10.1 Influenza due to other identified influenza virus with other respiratory manifestations; J20.9 Acute bronchitis, unspecified; G43.909 Migraine, unspecified, not intractable, without status migrainosus; Z87.891 Personal history of nicotine dependence; Z85.51 Personal history of malignant neoplasm of bladder; Z85.72 Personal history of non-Hodgkin lymphomas; Z85.828 Personal history of other malignant neoplasm of skin; Z79.82 Long term (current) use of aspirin; Z79.1 Long term (current) use of non-steroidal anti-inflammatories (NSAID); Z79.899 Other long term (current) drug therapy; Z82.49 Family history of ischemic heart disease and other diseases of the circulatory system; Z80.3 Family history of malignant neoplasm of breast
CPT/HCPCS: 36415; 70450; 71010; 71020; 80048; 80053; 81003; 81015; 83605; 84145; 84484; 85025; 85610; 85730; 86140; 87040; 87070; 87077; 87205; 87502; 87899; 93005; 93306; 94640; 94760; A9270-GY; J0696; J1644; J7512

== ENCOUNTER 2017-10-04 17:05 | Observation (INO) | payer MEDICARE, OTHER ==
--- OUTSIDE RECORDS SUMMARY | 2017-10-04 17:30 | XMS REPORT ---
:1945 External Reference #:[id number] Author Organization [facility] Address [address] [place] [address] Phone [phone] Care Team Providers Name Role Phone Sherri Braun M.D. 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 Active Onset: 10/23/2015 Combined form of senile cataract Ankush Mendoza M.D. 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 Family History Date Family Member(s) Problem(s) Comments Father No Current Problems Mother No Current Problems Social History Type Date Description Comments Marital Status Legal Status: Occupation [employer] Work Status Retired ETOH Use Denies alcohol use Smoking Patient has never smoked Recreational Drug Use Denies Drug Use Daily Caffeine Consumes on average 3 cups of regular coffee per day Allergies, Adverse Reactions, Alerts Date Description Reaction Status Severity Comments 10/18/2015 NKDA active Medications Medication Date Status Form Strength Qnty SIG Indications Ordering Provider Tamsulosin HCL // Active Capsules 0.4mg Hussieni, 0000 Ethan Roth Omeprazole / Active Capsules 20mg Alfredito, 0000 Dieudonne WoodDNerissa Atorvastatin 00/ Active Tablets 20mg Rui, Calcium 0000 Baldo Roth Dutasteride / Active Capsules 0.5mg Hussieni, 0000 Ethan M.DNerissa Fluticasone / Active Suspension 50mcg/Act Joaquin, Propionate 0000 Enzo QUALITY ASSURANCE MANAGER Valsartan-Hydroc / Active Tablets 160-12.5mg Joaquin, hlorothiazide 0000 Enzo QUALITY ASSURANCE MANAGER Keara 128 10/22/ Hx Ointment 5% 7gm chris Layton 2014 - eyes Arleo, 09/28/ every M.D. 2017 night Keara 128 10/22/ Hx Solution 2% chris Layton 2014 - eyes Arleo, 09/28/ twice a M.D. 2017 day Bupropion HCL ER / Hx Tablets ER 150mg Rui, (Smoking Det) 0000 - 12HR Baldo Roth 2015 Candesartan / Hx Tablets 16-12.5mg Rui, Cilexetil/Hydroc 0000 - Baldo Roth hlorothiazide 2015 Cholestyramine / Hx Packet 4gm Rui 0000 - Baldo Roth 2015 Avodart / Hx Capsules 0.5mg Vorha, 0000 - Teddy 09/22/ M.DNerissa 2015 Results Description No Information Procedures Date CPT Code Description Status 09/22/2016 16919 Scanning Computerized Ophthalmic Diagnostic Imaging, Completed Anterior 09/22/2016 73409 Determination Of Refractive State Completed 09/22/2016 12041 Est Patient Comprehensive Exam Completed 09/22/2016 26452 Pachymetry Completed 10/23/2015 08337 Est Patient Comprehensive Exam Completed 10/23/2015 85802 Pachymetry Completed 10/23/2014 14571 Est Patient Comprehensive Exam Completed 10/23/2014 02646 Pachymetry Completed 10/18/2013 38569 Determination Of Refractive State Completed 10/18/2013 78229 Est Patient Comprehensive Exam Completed 10/18/2013 93286 Pachymetry Completed 10/18/2012 01011 Est Patient Comprehensive Exam Completed 10/18/2012 07266 Pachymetry Completed 10/17/2011 28611 Pachymetry Completed 10/17/2011 79884 Est Patient Comprehensive Exam Completed 10/17/2011 07460 Determination Of Refractive State Completed 10/17/2010 58216 Determination Of Refractive State Completed 10/17/2010 92951 Est Patient Comprehensive Exam Completed 10/17/2010 74111 Pachymetry Completed 10/01/2009 82344 Determination Of Refractive State Completed 10/01/2009 47580 Est Patient Comprehensive Exam Completed 10/01/2009 61950 Pachymetry Completed 09/26/2008 63991 Est Patient Intermediate Exam Completed 09/26/2008 13644 Pachymetry Completed 04/11/2008 70245 Determination Of Refractive State Completed 04/11/2008 31947 New Patient Comprehensive Exam Completed Encounters Type Date Location Provider CPT E/M Dx Office Visit 06/26/2008 10:30a Ankush Mendoza MD, Ankush Mendoza, [address] [phone] marcos Roth Plan of Care 09/29/2017 - Ankush Mendoza M.D.H18.51 Endothelial corneal dystrophyComments: Smoking can increase the risk of developing or worsening any eye related disease , as well as affect your overall health. If you are a smoker, we strongly recommend that you quit.If you are not a smoker, we strongly recommend that you do not start. 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 This may cause reduced vision. Please follow the instructions given to you by Dr. Mendoza.H25.813 Combined forms of age-related cataract, bilateralComments:You have been diagnosed with cataracts. If you are happy with your vision as it is now, then we willsee you at your next scheduled appointment. If you feel like your vision is getting worse before your scheduled appointment, please call [facility] or Josselyn at [phone].Follow up:6 Month Follow Up You can expect to have your eyes dilated at your next visit. If Dr. Mendoza orders any additional testing , it may require extra time. We recommend that you bring sunglasses, as dilation drops often make you light sensitive until they wear off. We always recommend you bring someone to drive you home if you are uncomfortable driving with your eyes dilated. If you have any questions before your next visit, feel free to call our office at .
[2017-10-04 18:05] LABS: Hematocrit 43 % (42-52); Hemoglobin 14.6 g/dl (14.0-18.0); Mean Corpuscular HGB Conc 34 g/dl (31-36); Mean Corpuscular Hemoglobin 31 pg (27-31); Mean Corpuscular Volume 91 fL (80-94); Mean Platelet Volume 8 um3 (7.4-10.4); Red Blood Count 4.66 10^6/ul (4.0-5.4); Red Cell Distribution Width 14 % (10.5-15); White Blood Count 7.9 10^3/ul (3.5-10.8)
[2017-10-04 18:21] LABS: Albumin 4.1 g/dL (3.2-5.2); BUN/Creatinine Ratio 18.3 (8-20); Calcium 9.2 mg/dL (8.6-10.3); EGFR African American 119.1 (>60); EGFR Non-African American 92.6 (>60); Globulin 2.6 g/dL (2-4); Potassium 3.6 mmol/L (3.5-5.0); Total Bilirubin 0.5 mg/dL (0.2-1.0); Total Protein 6.7 g/dL (6.4-8.9); Troponin I 0.01 ng/mL (<0.04)
--- NOTE | 2017-10-04 19:07 | RAD ---
INDICATION: Chest pain most recent comparison chest x-rays dated December 01, 2016 COMPARISON: None. TECHNIQUE: Single AP portable view of the chest was obtained. FINDINGS: Image quality is compromised due to the relative inferiority of a portable chest x-ray. The heart and mediastinum exhibit normal size and contour. There is stable linear density at the dependent left lateral lung similar in appearance to the previous chest x-ray. Otherwise the lungs are grossly clear. There is no evidence of a large pleural effusion. Visualized bones are normal for the patient's age. IMPRESSION: Stable linear density at the left lung base could represent atelectasis or scarring. Otherwise there are is no radiographic evidence for acute cardiopulmonary abnormality on this portable chest x-ray.
[2017-10-04] MEDS ORDERED: Omeprazole CAP* 20 MG PO PRN (20:29)
[2017-10-04] MEDS ORDERED: Aspirin Low Dose CHEW TAB* 81 MG PO SCH (21:00)
[2017-10-04] MEDS ORDERED: Atorvastatin* 10 MG TAB PO SCH (21:00)
[2017-10-04] MEDS: Tamsulosin CAP* 0.4 MG PO SCH (21:04)
--- NOTE | 2017-10-04 23:03 | HP ---
CC: Enzo Nuñez NP * HISTORY AND PHYSICAL: DATE OF ADMISSION: 10/04/17 PRIMARY CARE PROVIDER: Enzo Nuñez NP ATTENDING PHYSICIAN: Dr. Jennifer Rosado *(dictated by Christina Kenney NP) CHIEF COMPLAINT: Epigastric pain with pain radiating to his right jaw. HISTORY OF PRESENT ILLNESS: Mr. Chavez is a 72-year-old male with past medical history significant for chronic lymphocytic leukemia, in remission; lymphoma, in remission; bladder cancer, in remission; hyperlipidemia; migraines; and hypertension, who presents to the emergency room with complaints of epigastric chest pain radiated to his right jaw with associated shortness of breath. The patient denies any lightheaded or dizziness during the episode, nausea or vomiting, diaphoresis. Denies any diarrhea. He states that the discomfort he had is different than reflux he has had in the past. The patient reports epigastric discomfort lasted for approximately 45 minutes prior to its resolution. He reports moving things around his house today as he has recently moved but at the time of the start of the pain, he was sitting down watching television. He reports that he did not try anything to see if the pain would go away. Its to note that the patient had an echo in November 2016 showing a normal LVEF of 50% to 60% and mild LA dilation. He also underwent a normal exercise stress test with Luevano treadmill score of 6 and symptomatic SVT during that treadmill portion. Due to his symptoms, he called EMS who administered 325 mg of aspirin and brought the patient to the emergency room. While in the emergency room, patient had labs that were unremarkable. He had an initial troponin of 0.01. He had an EKG showing sinus rhythm with rate of 70 , right bundle branch block and left anterior facet block. He had a chest x- ray showing possible atelectasis versus scarring that is similar to previous EKGs. Hospitalists were asked to evaluate the patient for admission. PAST MEDICAL HISTORY: 1. Chronic lymphocytic leukemia, in remission. 2. Lymphoma, in remission. 3. Bladder cancer, in remission. 4. Hyperlipidemia. 5. Hypertension. 6. Migraines. 7. Obstructive sleep apnea. 8. Supraventricular tachycardia. PAST SURGICAL HISTORY: 1. Status post splenectomy. 2. Status post PowerPort insertion and removal. 3. Status post TURP. 4. Status post vasectomy. HOME MEDICATIONS: Include: 1. Omeprazole 20 mg oral daily. 2. Avodart 0.5 mg oral every morning. 3. Lipitor 10 mg oral every day at bedtime. 4. Aspirin 81 mg oral daily at bedtime. 5. Losartan/hydrochlorothiazide one tablet oral daily. 6. Flomax 0.4 mg twice daily. ALLERGIES: No known drug allergies, seasonal allergies. FAMILY HISTORY: The patient's mother had a history of coronary artery disease and breast cancer. The patient's father passed at age 54 from dissected aorta. The patient denies any family history of diabetes mellitus. SOCIAL HISTORY: The patient is a former smoker, smoking 3 packs a day for approximately 20 years. He quit over 23 years ago. The patient currently drinks 2 glasses of wine daily. He denies recreational drug use. 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 He lives with his . His , Jade, will be his surrogate decision maker in the event he is unable to make decisions for himself. REVIEW OF SYSTEMS: I performed a 14-point review of systems. All the pertinent positives and negatives are mentioned in the history of present illness, the remaining review of systems are negative. PHYSICAL EXAMINATION GENERAL APPEARANCE: The patient is alert, pleasant, and appears to be in no acute distress. VITAL SIGNS: Temperature 97.8, heart rate 66, respiratory rate 13, O2 sat 95% on room air, blood pressure 138/75. HEENT: Normocephalic, atraumatic. Pupils are equal and reactive to light. Extraocular movements are intact. RESPIRATORY: There is no accessory muscle use and the lungs are clear to auscultation. CARDIOVASCULAR: Regular rate and rhythm. S1, S2 present. There are no murmurs , rubs or gallops heard. ABDOMEN: Soft, nontender, nondistended. There are bowel sounds present x4. EXTREMITIES: There is no lower extremity edema. DP and PT pulses are 2+ and symmetric. MUSCULOSKELETAL: There is no clubbing or cyanosis noted. The patient exhibits good strength in all extremities. NEUROLOGICAL: The patient is alert and oriented x4. Cranial nerves II through XII are grossly intact. PSYCHOLOGICAL: The patient is calm and cooperative. SKIN: There are no rashes or abnormalities seen. DIAGNOSTIC STUDIES/LABORATORY DATA: Sodium 135, potassium 3.7, chloride 99, CO2 29, BUN 15, creatinine 0.82, glucose 101. Troponin 0.01. White blood cell count 7.9, hemoglobin 14.6, hematocrit 43, and platelet count 259. EKG shows sinus rhythm with rate of 70 and right bundle branch block and left anterior facet block. This EKG is similar to previous EKG from 11/29/16 and there are no acute signs of ischemia. Chest x-ray from today. Radiologist's impression: Stable linear density at the left lung base could represent atelectasis or scarring. Otherwise, there is no radiographic evidence of acute cardiopulmonary abnormality on this portable chest x- ray. IMPRESSION: Mr. Chavez is a 72-year-old male with past medical history significant for hyperlipidemia, hypertension, chronic lymphocytic leukemia, lymphoma, bladder cancer, and migraines, who presents to the emergency room with complaints of lower sternal epigastric chest discomfort that has now resolved. He will be admitted for chest pain, rule out acute coronary syndrome as an observation. ASSESSMENT AND PLAN: 1. Chest pain. Rule out coronary syndrome. We will monitor the patient on telemetry. We will trend his troponin. His initial troponin was 0.01. If he does in fact rule out for acute coronary syndrome, we will get an exercise stress test in the morning. He has a MELANIA score of 3. Check fasting lipids in the morning. The patient while in the emergency room is reporting some abdominal discomfort that is starting in the right upper quadrant and radiating to his left. We will check a gallbladder ultrasound to rule out any gallbladder disease. 2. Chronic lymphocytic leukemia and lymphoma. The patient follows with Dr. Glaser and is currently in remission. 3. History of bladder cancer. The patient follows with Urology. 4. Hyperlipidemia. We will check fasting lipids in the morning. We will continue the patient on his home Lipitor for now. 5. Hypertension. We will continue the patient on his home losartan/ hydrochlorothiazide. 6. Benign prostatic hypertrophy. The patient will be continued on Flomax and Avodart. 7. Obesity. The patient's BMI is 34.9. 8. Obstructive Sleep Apnea. Pt will be continued on a CPAP, we will provide him with a hospital CPAP if he doesn't have his home unit. 9. Fluids, electrolytes, and nutrition. The patient will be on a heart healthy diet. 10. Code status. Full code. 11. DVT prophylaxis. The patient is at low risk and will be encouraged to ambulate. 12. Disposition. Observation. TIME SPENT: Time for this admission was approximately 60 minutes, greater than half of that was spent with the patient discussing medications, past medical history, and the events leading up to his arrival today and performing physical examination. The case was reviewed with the attending, Dr. Rosado, who agrees with the plan of care. Reviewed by JESSICA PERES 10/05/17 1316 [id number]/[facility] #: [id number] RICHI
[2017-10-05 06:02] VITALS: BP 133/68
[2017-10-05] MEDS: Acetaminophen TAB* 325 MG PO PRN ×2 (06:38→10:16)
[2017-10-05 07:03] LABS: HDL Cholesterol 47.9 mg/dL
[2017-10-05] MEDS ORDERED: Valsartan TAB* 160 MG PO SCH (09:00)
[2017-10-05] MEDS ORDERED: Hydrochlorothiazide TAB* 25 MG PO SCH (09:00)
[2017-10-05] MEDS ORDERED: Finasteride TAB* 5 MG PO SCH (09:00)
--- NOTE | 2017-10-05 10:02 | RAD ---
Edited for charges. INDICATION: Chest pain in a patient with multiple cardiac risk factors. COMPARISON: Chest x-ray dated October 04, 2000 7:30 TECHNIQUE: SPECT imaging was performed. Rest images were acquired following the intravenous injection of 10 millicuries of technetium 99m tetrofosmin at 0620 hours. At 0839 hours stress images were acquired following the intravenous administration of 25 millicuries of technetium 99m tetrofosmin. A maximum heart rate of 167 bpm was achieved. FINDINGS: There are no defects of the stress-induced or fixed nature. The cardiac chamber size is normal. There are no wall motion abnormalities. The ejection fraction is calculated at 68% during stress. IMPRESSION: No scintigraphic evidence of ischemia or infarction. ASSESSMENT: Low risk Based on imaging criteria from ACC/AHA 2002 Guideline Update for the Management of Patients With Chronic Stable Angina Table 23. Noninvasive Risk Stratification. MTDD
[2017-10-05] MEDS: Tamsulosin CAP* 0.4 MG PO SCH (10:13)
--- NOTE | 2017-10-05 10:22 | RAD ---
Indication: Right upper quadrant pain. Real-time sonography of the right upper quadrant was performed. The liver is enlarged measuring up to 21 cm in length. It is diffusely increased in echogenicity consistent with hepatic steatosis. Common duct measures 5 mm. The gallbladder demonstrates no gallstones, pericholecystic fluid or wall thickening. The right kidney measures 11.5 x 4.8 x 4.6 cm. No hydronephrosis is present. The pancreas demonstrates limited visualization. Aorta and inferior vena cava are grossly unremarkable although evaluation is limited. IMPRESSION: Hepatomegaly. Likely hepatic steatosis. No evidence of cholelithiasis or biliary duct dilatation is noted.
--- NOTE | 2017-10-05 11:32 | DCNOTE ---
Subjective Date of Service: 10/05/17 Interval History: This is a 72 year old male patient that presented with epigastric pain that radiated up the center of his chest to his jaw bilaterally. Presented to the ER for evaluation. He was seen post nuke stress, comfortable, no chest pain. No further episodes noted. Denies SOB, no n/v, slight headache. No further complaints. Objective Active Medications: Acetaminophen (Tylenol Tab*) 650 mg PO Q4H PRN PRN Reason: PAIN Last Admin: 10/05/17 10:16 Dose: 650 mg Aspirin (Aspirin Low Dose Tab*) 81 mg PO BEDTIME [facility] Last Admin: 10/04/17 21:04 Dose: 81 mg Atorvastatin Calcium (Lipitor*) 10 mg PO BEDTIME [facility] Last Admin: 10/04/17 21:04 Dose: 10 mg Finasteride (Proscar Tab*) 5 mg PO QAM [facility] PRN Reason: Protocol Last Admin: 10/05/17 10:13 Dose: 5 mg Hydrochlorothiazide (Hydrodiuril Tab*) 12.5 mg PO DAILY [facility] Last Admin: 10/05/17 10:13 Dose: 12.5 mg Omeprazole (Prilosec Cap*) 20 mg PO DAILY PRN PRN Reason: DISCOMFORT Last Admin: 10/05/17 10:16 Dose: 20 mg Tamsulosin HCl (Flomax Cap*) 0.4 mg PO BID [facility] Last Admin: 10/05/17 10:13 Dose: 0.4 mg Valsartan (Diovan Tab*) 160 mg PO DAILY [facility] Last Admin: 10/05/17 10:13 Dose: 160 mg Vital Signs 10/04/17 10/04/17 10/04/17 19:10 19:20 19:21 Temperature Pulse Rate 74 70 Respiratory Rate Blood Pressure 169/117 (mmHg) O2 Sat by Pulse 94 93 Oximetry 10/04/17 10/04/17 10/04/17 19:30 20:46 23:49 Temperature 97.9 F 97.2 F Pulse Rate 66 62 56 Respiratory 13 20 16 Rate Blood Pressure 138/75 144/77 128/65 (mmHg) O2 Sat by Pulse 93 96 96 Oximetry 10/05/17 10/05/17 00:23 03:34 Temperature 98.4 F 97.3 F Pulse Rate 58 56 Respiratory 20 20 Rate Blood Pressure 153/75 133/68 (mmHg) O2 Sat by Pulse 96 98 Oximetry Oxygen Devices in Use Now: None Appearance: well appearing, NAD Eyes: No Scleral Icterus Ears/Nose/Mouth/Throat: NL Teeth, Lips, Gums Neck: NL Appearance and Movements; NL JVP, Trachea Midline Respiratory: Symmetrical Chest Expansion and Respiratory Effort, Clear to Auscultation Cardiovascular: NL Sounds; No Murmurs; No JVD Abdominal: NL Sounds; No Tenderness; No Distention Extremities: No Edema, No Clubbing, Cyanosis Skin: No Rash or Ulcers Neurological: Alert and Oriented x 3, NL Muscle Strength and Tone Nutrition: Taking PO's Result Diagrams: 10/04/17 17:53 10/04/17 17:53 Additional Lab and Data: Troponins negative x3 Assess/Plan/Problems-Billing Assessment: Admitted to obs for serial troponins, r/o ACS, nuclear stress test completed. - Patient Problems (1) GERD (gastroesophageal reflux disease) Code(s): K21.9 - GASTRO-ESOPHAGEAL REFLUX DISEASE WITHOUT ESOPHAGITIS SNOMED Code(s): 956492007 Comment: - His chest/epigastric pain is likely GERD, he has had this in the past and was on omeprazole - Will DC on protonix (2) CLL (chronic lymphocytic leukemia) Code(s): C91.10 - CHRONIC LYMPHOCYTIC LEUK OF B-CELL TYPE NOT ACHIEVE REMIS SNOMED Code(s): 09345282 Comment: - followed by Alfredito, in remission (3) Full code status Code(s): Z78.9 - OTHER SPECIFIED HEALTH STATUS SNOMED Code(s): 453354731 (4) HLD (hyperlipidemia) Code(s): E78.5 - HYPERLIPIDEMIA, UNSPECIFIED SNOMED Code(s): 13609851 Comment: -continue statin, stable (5) HTN (hypertension) Code(s): I10 - ESSENTIAL (PRIMARY) HYPERTENSION SNOMED Code(s): 05096594 Comment: - Continue home meds, stable (6) Chest pain Code(s): R07.9 - CHEST PAIN, UNSPECIFIED SNOMED Code(s): 54116591 Comment: - Troponin negative x3 - Nuclear stress negative - May follow up outpatient with PCP - Etiology likely flare of GERD Status and Disposition: Discharge to home in stable condition Counseling and/or Coordination of Care Minutes: Coordinated with nursing and case mgmt staff Attending: Jose Rush
== END 2017-10-05 13:16 | disposition home or self-care (01) ==
LOC: ED 17:05 → MEDTELE 18:58
PROVIDERS: ADMIT Internal Medicine; ATTEND Internal Medicine
DX: R07.9 Chest pain, unspecified (principal); R10.13 Epigastric pain; R06.02 Shortness of breath; C91.10 Chronic lymphocytic leukemia of B-cell type not having achieved remission; K21.9 Gastro-esophageal reflux disease without esophagitis; E78.5 Hyperlipidemia, unspecified; I10 Essential (primary) hypertension; G47.33 Obstructive sleep apnea (adult) (pediatric); Z85.51 Personal history of malignant neoplasm of bladder; Z85.72 Personal history of non-Hodgkin lymphomas; Z79.899 Other long term (current) drug therapy; Z87.891 Personal history of nicotine dependence; E66.9 Obesity, unspecified; I45.2 Bifascicular block
CPT/HCPCS: 36415; 71010; 76705; 78452; 80053; 80061; 84484; 85025; 85610; 85730; 93005; 93017; 94660; 99285; A9270-GY; A9502; G0378

== ENCOUNTER 2017-10-14 06:26 | Day surgery (SDC) | payer MEDICARE, OTHER ==
[~2017-10-14 06:26] MED LIST: Acetaminophen TAB* 325 MG PO PRN; Buffered Lidocaine 0.9% SYRIN* 5 ML/SYR SYRINGE INTRADERM ONE
[2017-10-14] MEDS ORDERED: Midazolam* 1 MG/ML 2 ML VIAL (2 MG) ONE (07:23)
[2017-10-14 08:39] VITALS: BP 139/71
--- NOTE | 2017-10-14 08:47 | OP ---
DATE OF OPERATION: 10/14/17 [facility] DATE OF : 47 SURGEON: Ankush Mendoza M.D. PREOPERATIVE DIAGNOSIS: Cataract left eye. POSTOPERATIVE DIAGNOSIS: Cataract left eye. OPERATIVE PROCEDURE: Extracapsular cataract extraction with intraocular lens implant left eye. DESCRIPTION OF PROCEDURE: The patient was brought to the operating room after being given 1/2% Alcaine with epinephrine drops in the preoperative area. The eye was prepped and draped in the usual sterile fashion. Sterile drape and eyelid speculum were placed. Again, topical 1/2% Alcaine with epinephrine was given. A paracentesis incision was made at the 3 o'clock position with the No.75 blade. Clear cornea incision 2.2 x 2.2-mm was created at the 6 o'clock position starting at the anterior limbus using the 2.2-mm keratome. The anterior chamber was irrigated with 0.4 mL of 1% non-preservative intracameral lidocaine and filled with DisCoVisc. A capsulorrhexis was completed using the cystotome and the Utrata forceps. Hydrodissection was performed with balanced salt solution. The lens nucleus was removed with the Phacoemulsification handpiece without incident. Cortex was removed with the irrigation-aspiration handpiece. The capsular bag was re-inflated using DisCoVisc and an SN60WF 25.5 implant was inserted with the shooter. Malyugin ring was used to dilate the pupil prior to capsulorrhexis because the pupil was only 3 mm and removed after insertion of the lens. The irrigation-aspiration handpiece was used to remove all residual DisCoVisc. The eye was refilled with balanced salt solution and the wound checked and found to be watertight. Topical Maxitrol drops were given. A malyugen ring was used to dilate the pupil prior to capsulorrhexis because of a very small pupil and removed after insertion of the lens. Indication for complex cataract surgery pupil abnormalities requiring pupil dilation device [id number]/[facility] #: [id number] [facility]
[2017-10-14] MEDS ORDERED: acetaZOLAMIDE TAB* 250 MG ONE (12:48)
[2017-10-14] MEDS ORDERED: Cyclopentolate 1% OPTH.SOL* 2 ML BTL ONE (12:48)
[2017-10-14] MEDS ORDERED: Neomycin/Polymy/Dex OPTH.SUSP* MAXITROL 0.1% 5 ML ONE (12:48)
[2017-10-14] MEDS ORDERED: Ketorolac 0.5% OPHTH (NF) 0.5 % 5 ML BTL ONE (12:48)
[2017-10-14] MEDS ORDERED: Lidocaine 2% EPI 1:200000 MPF* 20 ML VIAL ONE (12:48)
[2017-10-14] MEDS ORDERED: Phenylephrine 2.5% OPTH.SOL* 2 ML BTL ONE (12:48)
[2017-10-14] MEDS ORDERED: Lidocaine 1% MPF* 2 ML VIAL ONE (12:48)
[2017-10-14] MEDS ORDERED: Proparacaine 0.5% OPHTH.SOL* 15 ML BTL ONE (12:48)
[2017-10-14] MEDS ORDERED: Povidone Iodine 5% OPTH* 30 ML BTL ONE (12:48)
== END 2017-10-14 08:15 | disposition home or self-care (01) ==
LOC: OREAST 06:26
PROVIDERS: ATTEND Specialist
DX: H25.812 Combined forms of age-related cataract, left eye (principal); H21.562 Pupillary abnormality, left eye; H18.51 Endothelial corneal dystrophy; Z87.891 Personal history of nicotine dependence; E78.5 Hyperlipidemia, unspecified; I10 Essential (primary) hypertension; I45.10 Unspecified right bundle-branch block; Z85.6 Personal history of leukemia; Z85.51 Personal history of malignant neoplasm of bladder
CPT/HCPCS: A9270-GY; J2250; V2632

== ENCOUNTER 2017-10-21 06:26 | Day surgery (SDC) | payer MEDICARE, OTHER ==
[2017-10-21] MEDS ORDERED: Midazolam* 1 MG/ML 2 ML VIAL (2 MG) ONE ×2 (07:17→07:40)
[2017-10-21 08:30] VITALS: BP 140/65
--- NOTE | 2017-10-21 09:37 | OP ---
OPERATIVE NOTE: DATE OF OPERATION: 10/21/17 DATE OF : 47 SURGEON: Ankush Mendoza M.D. PREOPERATIVE DIAGNOSIS: Cataract right eye. POSTOPERATIVE DIAGNOSIS: Cataract right eye. OPERATIVE PROCEDURE: Extracapsular cataract extraction with intraocular lens implant right eye. PROCEDURE: The patient was brought to the operating room after being given 1/2% Alcaine with epineph rine drops in the preoperative area. The eye was prepped and draped in the usual sterile fashion. S terile drape and eyelid speculum were placed. Again, topical 1/2% Alcaine with epinephrine was given . A paracentesis incision was made at the 9 o'clock position with the No.75 blade. Clear cornea inc ision 2.2 x 2.2-mm was created at the 12 o'clock position starting at the anterior limbus using the 2 .2-mm keratome. The anterior chamber was irrigated with 0.4 mL of 1% non-preservative intracameral l idocaine and filled with DisCoVisc. A capsulorrhexis was completed using the cystotome and the Utrat a forceps. Hydrodissection was performed with balanced salt solution. The lens nucleus was removed w ith the Phacoemulsification handpiece without incident. Cortex was removed with the irrigation-aspir ation handpiece. The capsular bag was re-inflated using DisCoVisc and an SN60WF 24.5 implant was ins erted with the shooter. The irrigation-aspiration handpiece was used to remove all residual DisCoVis c. The eye was refilled with balanced salt solution and the wound checked and found to be watertight . Topical Maxitrol drops were given. [id number]/[facility] #: [id number]
[2017-10-21] MEDS ORDERED: Proparacaine 0.5% OPHTH.SOL* 15 ML BTL ONE (11:54)
[2017-10-21] MEDS ORDERED: Ketorolac 0.5% OPHTH (NF) 0.5 % 5 ML BTL ONE (11:54)
[2017-10-21] MEDS ORDERED: Lidocaine 1% MPF* 2 ML VIAL ONE (11:54)
[2017-10-21] MEDS ORDERED: acetaZOLAMIDE TAB* 250 MG ONE (11:54)
[2017-10-21] MEDS ORDERED: Cyclopentolate 1% OPTH.SOL* 2 ML BTL ONE (11:54)
[2017-10-21] MEDS ORDERED: Lidocaine 2% EPI 1:200000 MPF* 20 ML VIAL ONE (11:54)
[2017-10-21] MEDS ORDERED: Povidone Iodine 5% OPTH* 30 ML BTL ONE (11:54)
[2017-10-21] MEDS ORDERED: Phenylephrine 2.5% OPTH.SOL* 2 ML BTL ONE (11:54)
[2017-10-21] MEDS ORDERED: Neomycin/Polymy/Dex OPTH.SUSP* MAXITROL 0.1% 5 ML ONE (11:54)
== END 2017-10-21 08:30 | disposition home or self-care (01) ==
LOC: OREAST 06:26
PROVIDERS: ATTEND Specialist
DX: H25.811 Combined forms of age-related cataract, right eye (principal); H18.51 Endothelial corneal dystrophy; Z87.891 Personal history of nicotine dependence; E78.5 Hyperlipidemia, unspecified; I10 Essential (primary) hypertension; I45.10 Unspecified right bundle-branch block; Z85.51 Personal history of malignant neoplasm of bladder; C95.91 Leukemia, unspecified, in remission
CPT/HCPCS: A9270-GY; J2250; V2632

== ENCOUNTER 2019-12-24 15:46 | Inpatient (IN) | payer MEDICARE, BC ==
--- OUTSIDE RECORDS SUMMARY | 2019-12-24 16:02 | XMS REPORT | Continuity of Care Document ---
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 Asplenia Enzo Nuñez NP Onset: 03/10/2016 Essential hypertension Enzo Nuñez NP Onset: 03/10/2016 Hyperlipidemia Enzo Nuñez NP Onset: 03/10/2016 Right bundle branch block Enzo Nuñez NP Onset: 03/07/2016 Obstructive sleep apnea syndrome Arlen Winslow DNP, RN, Onset: 11/11/2019 [facility] Note: Severe 2.3 Social History Type Date Description Comments Sex Unknown Tobacco Use Start: Unknown End: Former Cigarette Smoker Unknown ETOH Use consumes 1-2 glasses of wine per day Tobacco Use Start: Unknown End: Patient is a former 3 packs per day Unknown smoker quit in 1993 Recreational Drug Use Denies Drug Use Tobacco Use Start: Unknown occausional smokes cigar Smoking Status Reviewed: 08/05/19 occausional smokes cigar Exercise Type/Frequency Exercises regularly Walking daily, at least a few miles. Allergies, Adverse Reactions, Alerts Description No Known Drug Allergies Medications Active Medications SIG Qnty Indications Ordering Date Provider Medical Marijuana Other Ordering 11/15/2019 Provider Baclofen take 1/2-1 tab 60tabs M54.5 Enzo Nuñez NP 08/05/2019 10mg Tablets every 8 hours as needed for muscle spasm Meloxicam Take 1 To 2 60tabs Enzo Nuñez NP 07/20/2019 7.5mg Tablets Tablets By Mouth Every Day as Needed After Completion Of Medrol Hydrocodone-Acetamino 1-2 tablets by 60tabs M54.5 Enzo Nuñez NP 2018 phen mouth every 8 5-325mg Tablets hours as needed for pain Cpap Supplies Pls provide with G47.33 Jeri Manning, 09/02/2018 necessary pap MD supplies, mask to fit, tubing, head gear, filters Diclofenac Sodium apply 2 grams to 200gm M25.562 Enzo Nuñez NP 07/12/2018 1% affected areas Gel twice daily Irbesartan-Hydrochlor Take 1 Tablet By 90tabs Enzo Nuñez NP 06/04/2018 othiazide Mouth Every Day 150-12.5mg Tablets Pantoprazole Sodium Take 1 Tablet By 30tabs K21.9 Enzo Nuñez NP 2016 Mouth Every Day 20mg Tablets DR Tamsulosin HCL 1 by mouth every Enzo uNñez NP 03/07/2016 0.4mg day Capsules Avodart 1 by mouth every 90caps Enzo Nuñez NP 03/07/2016 0.5mg Capsules day Atorvastatin Calcium take 1 tablet by 90tabs Enzo Nuñez NP 03/07/2016 mouth every day 10mg Tablets CBD Oil cbd oil 1 or 2 Unknown drops topically daily for joint pain Vitamin B Complex 1 by mouth every Unknown day Tablets History Medications Medrol as directed on 21units M54.5 Enzo Nuñez, 07/20/2019 - 4mg TBPK package [employer] CO[employer]INATOR 08/05/2019 Cyclobenzaprine HCL one by mouth 60tabs M54.5 Enzo Nuñez, 07/20/2019 - 10mg three times a [employer] CO[employer]INATOR 07/27/2019 Tablets day as needed spasm Medications Administered in Office Medication SIG Qnty Indications Ordering Provider Date Technetium TC 99M Vincent Subramanian M.D., 11/18/2016 Tetrofosmin, Per Unit Dose FACC, FASNC Up To 40 Millicuries Injection Immunizations CPT Code Status Date Vaccine Reaction Lot # [id number] Given 08/05/2019 Pneumonia Vaccine NO immediate reaction [id number] Vital Signs Date Vital Result Comment 11/15/2019 8:06am Height 70.5 inches 5'10.50" Weight 250.00 lb Heart Rate 84 /min BP Systolic 130 mmHg BP Diastolic 72 mmHg O2 % BldC Oximetry 95 % BMI (Body Mass Index) 35.4 kg/m2 08/05/2019 3:09pm Height 70.5 inches 5'10.50" Weight 251.50 lb Heart Rate 61 /min BP Systolic 141 mmHg BP Diastolic 76 mmHg Body Temperature 97.2 F O2 % BldC Oximetry 96 % BMI (Body Mass Index) 35.6 kg/m2 Results Test Acquired Date Facility Test Result H/L Range Note Lipid Profile 07/18/2019 [facility] Triglycerides 146 mg/dL 1 (Trig/Chol/HDL) [address] [place] [address] [phone] Cholesterol 172 mg/dL 2 HDL Cholesterol 52.7 mg/dL 3 LDL Cholesterol 90 mg/dL 4 Laboratory test 07/18/2019 [facility] Glucose 92 mg/dL Normal 70-[address] [place] [address] [phone] Laboratory test 06/01/2019 [facility] PSA Screening 0.398 0- 4.0 [address] ng/[place] [address] [phone] CBC Auto Diff 06/01/2019 [facility] White Blood 7.4 Normal 3.5 -10.[address] Count 10^3/[place] [address] [phone] Red Blood Count 4.86 10^6/uL Normal 4.18-5.48 Hemoglobin 15.1 g/dL Normal 14.0-18.0 Hematocrit 45 % Normal 42-52 Mean Corpuscular Volume 92 fL Normal 80-94 Mean Corpuscular Hemoglobin 31 pg Normal 27-31 Mean Corpuscular HGB Conc 34 g/dL Normal 31-36 Red Cell Distribution Width 14 % Normal 10-15 Platelet Count 260 10^3/uL Normal 150-450 Mean Platelet Volume 9.0 fL Normal 7.4-10.4 Abs Neutrophils 4.1 10^3/uL Normal 1.5-7.7 Abs Lymphocytes 2.1 10^3/uL Normal 1.0-4.8 Abs Monocytes 1.0 10^3/uL High 0-0.8 Abs Eosinophils 0.2 10^3/uL Normal 0-0.6 Abs Basophils 0.1 10^3/uL Normal 0-0.2 Abs Nucleated RBC 0.0 10^3/uL Granulocyte % 54.9 % Lymphocyte % 28.6 % Monocyte % 12.9 % Eosinophil % 2.8 % Basophil % 0.8 % Nucleated Red Blood Cells % 0.1 Comp Metabolic 06/01/2019 [facility] Sodium 141 mmol/L Normal 135-[address] [place], [place] [address] [phone] Potassium 4.4 mmol/L Normal 3.5-5.0 Chloride 103 mmol/L Normal 101-111 Co2 Carbon Dioxide 28 mmol/L Normal 22-32 Anion Gap 10 mmol/L Normal 2-11 Calcium 9.8 mg/dL Normal 8.6-10.3 Albumin 4.3 g/dL Normal 3.2-5.2 Total Bilirubin 0.80 mg/dL Normal 0.2-1.0 Glucose 102 mg/dL High 70-100 Blood Urea Nitrogen 15 mg/dL Normal 6-24 Creatinine 1.00 mg/dL Normal 0.67-1.17 BUN/Creatinine Ratio 15.0 Normal 8-20 Total Protein 6.9 g/dL Normal 6.4-8.9 Globulin 2.6 g/dL Normal 2-4 Albumin/Globulin Ratio 1.7 Normal 1-3 Alkaline Phosphatase 58 U/L Normal 34-104 Alt 22 U/L Normal 7-52 Ast 24 U/L Normal 13-39 Egfr Non- 73.5 >60 Egfr 88.9 >60 6 1 Desirable: <150 Borderline High: 150-199 High: 200-499 Very High: >500 2 Desirable: <200 Borderline High: 200-239 High: >239 3 Low: <40 Desirable: 40-60 High: >60 4 Desirable: <100 Near Optimal: 100-129 Borderline High: 130-159 High: 160-189 Very High: >189 5 Serum levels of PSA measured using the [employer] DXI Hybritech immunoassay should not be interpreted as absolute evidence of the presence or absence of disease. The PSA value should be used in conjunction with other pertinent clinical diagnostic procedures. A PSA value in the range of 0.1 to 0.6 ng/ml is indeterminate if being used as an indicator of recurrent or residual disease. The values obtained with different assay methods or kits cannot be used interchangeably. 6 Because ethnic data is not always readily available, this report includes an eGFR for both -Americans and non- Americans. The National Kidney Disease Education Program (NKDEP) does not endorse the use of the MDRD equation for patients that are not between the ages of 18 and 70, are , have extremes of body size, muscle mass, or nutritional status, or are non- or non-. According to the National Kidney Foundation, irrespective of diagnosis, the stage of the disease is based on the level of kidney function: Stage Description GFR(mL/min/1.73 m(2)) 1 Kidney damage with normal or decreased GFR 90 2 Kidney damage with mild decrease in GFR 60-89 3 Moderate decrease in GFR 30-59 4 Severe decrease in GFR 15-29 5 Kidney failure <15 (or dialysis) Procedures Date Code Description Status 07/25/2019 76752 EKG Tracing & Interpretation Completed 09/22/2016 792431131 Diabetic Retinal Eye Exam Completed 09/07/2012 [id number] Colonoscopy Completed 09/03/2004 [id number] Colonoscopy Completed Medical Devices Description No Information Available Encounters Type Date Location Provider Dx Diagnosis Office Visit 11/15/2019 Pul[facility] And Ghada G47.33 Obstructive sleep 8:00a [facility] ap[facility]adult[facility] ([facility] Office Visit 08/05/2019 [facility] Internal Enzo Nuñez NP Z00.00 Encn[facility] w/o abnormal findings I10 Essential (primary) hypertension E78.5 Hyperlipidemia, unspecified M54.5 Low back pain Z23 Encounter for immunization Office Visit 07/25/2019 2:40p Jim Valero F17.201 Nicotine Cardiology Of DO robert Fitzpatrick [facility] FACC unspecified, in remission I71.4 Abdominal aortic aneurysm, without rupture R07.9 Chest pain, unspecified I45.2 Bifascicular block I10 Essential (primary) hypertension E78.5 Hyperlipidemia, unspecified Office Visit 07/20/2019 2:00p [facility] Internal Enzo Nuñez NP M54.5 Low back pain [facility] G[facility].62 Sleep related leg cramps Z82.49 Family hx of ischem heart dis and oth dis of the circ sys Assessments Date Code Description Provider 11/15/2019 G47.33 Obstructive sleep apnea (adult) Ghada Gardner NP (pediatric) 08/05/2019 Z00.00 Encounter for general adult medical Enzo Nuñez NP examination without abnormal findings 08/05/2019 I10 Essential (primary) hypertension Enzo Joaquin, [employer]INATOR 08/05/2019 E78.5 Hyperlipidemia, unspecified Enzo Joaquin, [employer] RECOV[employer] COORDINATOR 08/05/2019 M54.5 Low back pain Enzo Joaquin, [employer] RECOV[employer] COORDINATOR 08/05/2019 Z23 Encounter for immunization Enzo Joaquin, [employer] RECOV[employer] COORDINATOR 07/25/2019 F17.201 Nicotine dependence, unspecified, in Matthew Fitzpatrick, DO FAC remission 07/25/2019 I71.4 Abdominal aortic aneurysm, without Matthew Fitzpatrick, DO [facility] rupture 07/25/2019 R07.9 Chest pain, unspecified Matthew SNerissa Fitzpatrick, DO FAC 07/25/2019 I45.2 Bifascicular block Matthew Fitzpatrick, DO FACC 07/25/2019 I10 Essential (primary) hypertension Mathtew Fitzpatrick, DO FACC 07/25/2019 E78.5 Hyperlipidemia, unspecified Matthew SNerissa Fitzpatrick, DO FACC 07/20/2019 M54.5 Low back pain Enzo Joaquin, [employer] RECOVERY COORDINATOR 07/20/2019 G47.62 Sleep related leg cramps Enzorola Nuñez, [employer] RECOVERY COORDINATOR 07/20/2019 Z82.49 Family history of ischemic heart disease Enzo Nuñez NP and other diseases of the circulatory system Plan of Treatment 11/15/2019 - Ghada Gardner NPG47.33 Obstructive sleep apnea (adult) ( pediatric)Follow up:1 yearRecommendations:If you have difficulty with your equipment, or need to replace your mask or hoses, please contact your homecare agency, [facility] . If you have any further questions, pleasecall the [facility] at [phone] If you have any sleepiness while driving you MUST avoid operating a vehicle or machinery. If you feel tired while driving, stick puller and take a nap or switch drivers. If you know you are sleepy and need to go somewhere, arrange for a ride or use public transportation. It is very important to not risk your safety or the safety of others. Functional Status Description No Information Available Mental Status Description No Information Available Referrals Refer to Reason for Referral Status Appt Date Pain Clinic Sent 09/06/[address] [place] [address] [phone] Chencho Nieves MD Sent [address] [place] [id number] [phone] Matthew Fitzpatrick DO, FACC Sent 07/25/2019 [facility] [place] [address] [phone]
[2019-12-24] MEDS ORDERED: NS 0.9% 1000 ML** 1,000 ML IV ONE (16:03)
[2019-12-24 16:34] LABS: Hematocrit 43 % (42-52); Hemoglobin 14.6 g/dL (14.0-18.0); Mean Corpuscular HGB Conc 34 g/dL (31-36); Mean Corpuscular Hemoglobin 32 pg (27-31); Mean Corpuscular Volume 92 fL (80-94); Mean Platelet Volume 8.7 fL (7.4-10.4); Platelet Count 421 10^3/uL (150-450); Red Blood Count 4.62 10^6 /uL (4.18-5.48); Red Cell Distribution Width 14 % (10-15); White Blood Count 14.3 10^3/uL (3.5-10.8)
[2019-12-24] MEDS ORDERED: Albuterol/Ipratropium NEB.SOL* Albuterol 2.5 MG/Ipratropium 0.5 MG 3 ML INH ONE (16:37)
[2019-12-24] MEDS ORDERED: Cefepime(*) 1 GM in NS 0.9% 50 ML* 50 ML IVPB ONE (16:38)
[2019-12-24 16:52] LABS: ALT 57 U/L (7-52); AST 24 U/L (13-39); Albumin 3.7 g/dL (3.2-5.2); Albumin/Globulin Ratio 1.3 (1-3); Alkaline Phosphatase 55 U/L (34-104); Anion Gap 8 mmol/L (2-11); BUN/Creatinine Ratio 19.6 (8-20); Blood Urea Nitrogen 21 mg/dL (6-24); CO2 Carbon Dioxide 30 mmol/L (22-32); Calcium 8.9 mg/dL (8.6-10.3); Chloride 99 mmol/L (101-111); EGFR Non-African American 67.7 (>60); Globulin 2.9 g/dL (2-4); Glucose 117 mg/dL (70-100); Potassium 3.7 mmol/L (3.5-5.0); Sodium 137 mmol/L (135-145); Total Protein 6.6 g/dL (6.4-8.9)
[2019-12-24 16:57] LABS: Troponin I 0.04 ng/mL (<0.03)
[2019-12-24] MEDS ORDERED: NS 0.9% 50 ML* 50 ML ONE (17:00)
[2019-12-24] MEDS ORDERED: Cefepime 1 GM in Dextrose(*) 1 GM/50 ML q12h (Duplex) IV ONE (17:00)
[2019-12-24 17:01] LABS: Influenza A Molecular Negative (Negative); Influenza B Molecular Negative (Negative)
[2019-12-24 17:01] LABS: Activated Partial Thrombo Time 26.3 seconds (26.0-38.0); INR 1.07 (0.82-1.09)
[2019-12-24 17:07] LABS: ABS Basophils 0.1 10^3/ul (0-0.2); ABS Eosinophils 0.6 10^3/ul (0-0.6); ABS Lymphocytes 2.7 10^3/ul (1.0-4.8); ABS Monocytes 1.7 10^3/ul (0-0.8); ABS Neutrophils 9.2 10^3/ul (1.5-7.7); Eosinophil % 4.1 %; Nucleated Red Blood Cells % 0.1
[2019-12-24] MEDS ORDERED: Vancomycin(*) 1,000 MG in NS 0.9% 250 ML* 250 ML IVPB ONE (17:18)
[2019-12-24] MEDS ORDERED: Albuterol/Ipratropium NEB.SOL* Albuterol 2.5 MG/Ipratropium 0.5 MG 3 ML INH PRN (17:29)
[2019-12-24] MEDS ORDERED: NS 0.9% 1000 ML** 1,000 ML IV SCH (17:30)
[2019-12-24] MEDS ORDERED: Vancomycin per Pharmacy* NOTE FOLLOW UP SCH (18:00)
[2019-12-24] MEDS ORDERED: HYDROcodone/ACETAMIN 5-325 MG* 1 TAB PO PRN (18:01)
[2019-12-24] MEDS ORDERED: Iohexol 300* (CONTRAST) 10 ML SDV IV ONE (18:36)
[2019-12-24] MEDS ORDERED: Iohexol 350* (CONTRAST) 500 ML MDV IV ONE (18:37)
--- NOTE | 2019-12-24 20:05 | ED ---
Respiratory - HPI Summary HPI Summary: Patient is a 74 y/o M presenting to [facility] with reported bilateral PNA. He states that he has been in a [facility] for the past seven days for his PNA. However, he left against medical advice today at 0400 12/24/19 to fly back home to the [place] area. He states that he was instructed to go to the nearest hospital to continue antibiotic treatment. Last dose of antibiotic is reported to be cefepime; he has also been given Zithromax. Patient was receiving regular nebulizer treatments in [place] as well. Last CT and CXR were done on 12/18/19. Patient states that prior to his hospitalization, he was on a cruise to the [facility] and experienced onset of fever, cough, fatigue, chest congestion and SOB. He was diagnosed with influenza on 12/07/19. Patient took Tamiflu but later developed PNA. Patient notes Hx of leukemia, bladder cancer, lymphoma, COPD, and childhood asthma. PSHx of splenectomy in 2004. Patient notes that he occasionally smokes a cigar. No Hx of cardiac disease reported. Home medications and allergies are reviewed. Home Medications Medication Instructions Recorded Confirmed Type Atorvastatin* [Lipitor 10 MG*] 10 mg PO BEDTIME 01/17/13 12/24/19 History Dutasteride [Avodart] 0.5 mg PO QAM 01/17/13 12/24/19 History Tamsulosin CAP* [Flomax CAP*] 0.4 mg PO QAM 10/06/13 12/24/19 History Pantoprazole TAB (NF) [Protonix 20 mg PO QAM 10/13/17 12/24/19 History TAB (NF)] Acetaminophen TAB* [Tylenol TAB*] 650 mg PO BID PRN 09/06/19 12/24/19 History Baclofen TAB* [Lioresal TAB*] 0.5 - 1 tab PO Q8H PRN 09/06/19 12/24/19 History Cannabidiol (CBD) Extract (NF) 0.75 ml PO BID PRN 09/06/19 12/24/19 History [Epidiolex (NF)] Hydrocodone/Acetaminophen 1 tab PO Q8H PRN 09/06/19 12/24/19 History [Hydrocodone/Acetaminophen 5-325 mg] Irbesartan/Hydrochlorothiazide 1 tab PO DAILY 09/06/19 12/24/19 History [Irbesartan/Hydrochlorothi 150-12.5 mg] Sodium Chloride 5% OPTH OINT* 1 applic BOTH EYES DAILY 09/06/19 12/24/19 History [Keara 128- 5% Opth Oint*] Sodium Chloride 5% OPTH.TANI* [[place] 1 drop BOTH EYES TID 09/06/19 12/24/19 History 128 Opth 5% OPTH.SOLl*] Vitamin B Complex CAP* [B Complex 1 cap PO DAILY 09/06/19 12/24/19 History CAP*] Gabapentin CAP(*) [Neurontin 300 300 mg PO BID 11/28/19 12/24/19 History CAP(*)] Meloxicam(NF) [Mobic(NF)] 7.5 mg PO DAILY PRN 11/28/19 12/24/19 History - History of Current Complaint Chief Complaint: EDUpperRespComplaint Stated Complaint: PNEUMONIA Time Seen by Provider: 12/24/19 15:55 Hx Obtained From: Patient Onset/Duration: Still Present Timing: Constant Pain Intensity: 5 Character: Wheezing Associated Signs and Symptoms: SOB - Allergy/Home Medications Allergies/Adverse Reactions: Allergies Allergy/AdvReac Type Severity Reaction Status Date / Time ENVIRONMENTAL/SEASONAL Allergy EYES Uncoded 12/24/19 15:55 HAYFEVER WATERY, SNEEZE Home Medications: Home Medications Atorvastatin* [Lipitor 10 MG*] 10 mg PO BEDTIME 01/17/13 [History Confirmed ] Dutasteride [Avodart] 0.5 mg PO QAM 01/17/13 [History Confirmed 12/24/19] Tamsulosin CAP* [Flomax CAP*] 0.4 mg PO QAM 10/06/13 [History Confirmed 12/24/19 ] Pantoprazole TAB (NF) [Protonix TAB (NF)] 20 mg PO QAM 10/13/17 [History Confirmed 12/24/19] Acetaminophen TAB* [Tylenol TAB*] 650 mg PO BID PRN 09/06/19 [History Confirmed 12/24/19] Baclofen TAB* [Lioresal TAB*] 0.5 - 1 tab PO Q8H PRN 09/06/19 [History Confirmed 12/24/19] Cannabidiol (CBD) Extract (NF) [Epidiolex (NF)] 0.75 ml PO BID PRN 09/06/19 [ History Confirmed 12/24/19] Hydrocodone/Acetaminophen [Hydrocodone/Acetaminophen 5-325 mg] 1 tab PO Q8H PRN 09/06/19 [History Confirmed 12/24/19] Irbesartan/Hydrochlorothiazide [Irbesartan/Hydrochlorothi 150-12.5 mg] 1 tab PO DAILY 09/06/19 [History Confirmed 12/24/19] Sodium Chloride 5% OPTH OINT* [K[place]a 128- 5% Opth Oint*] 1 applic BOTH EYES DAILY 09/06/19 [History Confirmed 12/24/19] Sodium Chloride 5% OPTH.TANI* [[place] 128 Opth 5% OPTH.SOLl*] 1 drop BOTH EYES TID 09/06/19 [History Confirmed 12/24/19] Vitamin B Complex CAP* [B Complex CAP*] 1 cap PO DAILY 09/06/19 [History Confirmed 12/24/19] Gabapentin CAP(*) [Neurontin 300 CAP(*)] 300 mg PO BID 11/28/19 [History Confirmed 12/24/19] Meloxicam(NF) [Mobic(NF)] 7.5 mg PO DAILY PRN 11/28/19 [History Confirmed ] PMH/Surg Hx/FS Hx/Imm Hx Endocrine/Hematology History: Denies: Hx Diabetes, Hx Systemic Lupus Erythematosus Cardiovascular History: Reports: Hx Angina, Hx Hypercholesterolemia, Hx Hypertension Denies: Hx Congestive Heart Failure, Hx Coronary Artery Disease, Hx Pacemaker /ICD Respiratory History: Reports: Hx Asthma, Hx Seasonal Allergies, Hx Sleep Apnea GI History: Reports: Hx Gall Bladder Disease - "sludge" in gall bladder, Hx Gastroesophageal Reflux Disease, Other GI Disorders - splenectomy History: Reports: Hx Benign Prostatic Hyperplasia, Other Problems/ Disorders - bladder scraping and bladder CA Denies: Hx Kidney Infection, Hx Kidney Stones, Hx Renal Disease Musculoskeletal History: Reports: Hx Arthritis - BILATERAL HANDS, POSSIBLE BACK , Hx Back Problems - spinal stenosis, Hx Tendonitis - RIGHT INNER ANKLE AREA, right forearm Denies: Hx Rheumatoid Arthritis Sensory History: Reports: Hx Cataracts - both, Hx Contacts or Glasses - GLASSES , Hx Hearing Aid Opthamlomology History: Reports: Hx Cataracts - both, Hx Contacts or Glasses - GLASSES Neurological History: Reports: Hx Migraine, Other Neuro Impairments/Disorders - sciatica, PAIN CLINIC PT Psychiatric History: Reports: Hx Depression - off medications Denies: Hx Panic Disorder - Cancer History Cancer Type, Location and Year: leukemia 2003, bladder CA 2008, lymphoma 2010, bladder CA 2011 Hx Chemotherapy: Yes - Surgical History Surgery Procedure, Year, and Place: spleenectomy 2005, vasectomy, bladder scrapings x3, port implant and removal. SKIN CARCINOMA REMOVED Hx Anesthesia Reactions: No Infectious Disease History: No Infectious Disease History: Reports: Hx Shingles - 03/2005, Traveled Outside the [place] in Last 30 Days - Family History Known Family History: Positive: Other - CHF - Social History Alcohol Use: Daily Alcohol Amount: 14 Substance Use Type: Reports: Marijuana, Prescribed Substance Use Comment - Amount & Last Used: medical marijuana Hx Tobacco Use: No Smoking Status (MU): Current Some Day Smoker Type: Cigars Amount Used/How Often: 1-2 per week in the summer Length of Time of Smoking/Using Tobacco: quit 3 pack/day smoking 20 years ago; still smokes one cigar per week Have You Smoked in the Last Year: Yes Review of Systems Positive: Fever - REPORTED , Fatigue Respiratory: Other - positive - chest congestion Positive: Shortness Of Breath, Cough All Other Systems Reviewed And Are Negative: Yes Physical Exam - Summary Physical Exam Summary: Constitutional: Well-developed, Well-nourished, Alert. (-) Distressed Skin: Warm, Dry HENT: Normocephalic; Atraumatic Eyes: Conjunctiva normal Neck: Musculoskeletal ROM normal neck. (-) JVD, (-) Stridor, (-) Tracheal deviation Cardio: Rhythm regular, rate normal, Heart sounds normal; Intact distal pulses; The pedal pulses are 2+ and symmetric. Radial pulses are 2+ and symmetric. (-) Murmur Pulmonary/Chest wall: Effort normal. Bilateral expiratory wheezing, dry cough noted; (-) Respiratory distress, (-) Rales Abd: Soft, (-) tenderness, (-) Distension, (-) Guarding, (-) Rebound Musculoskeletal: (-) Edema Lymph: (-) Cervical adenopathy Neuro: Alert, Oriented x3 Psych: Mood and affect Normal Triage Information Reviewed: Yes Vital Signs On Initial Exam: Initial Vitals Temp Pulse Resp BP Pulse Ox 99.2 F 105 16 158/93 95 12/24/19 15:50 12/24/19 15:50 12/24/19 15:50 12/24/19 15:50 12/24/19 15:50 Vital Signs Reviewed: Yes Procedures - Sedation Patient Received Moderate/Deep Sedation with Procedure: No Diagnostics - Vital Signs Vital Signs Temp Pulse Resp BP Pulse Ox 12/24/19 16:02 95 12/24/19 15:50 99.2 F 105 16 158/93 95 - Laboratory Lab Results: Lab Results 12/24/19 12/24/19 12/24/19 Range/Units 16:24 16:24 16:24 WBC 14.3 H (3.5-10.8) 10^3/uL RBC 4.62 (4.18-5.48) 10^6 /uL Hgb 14.6 (14.0-18.0) g/dL Hct 43 (42-52) % MCV 92 (80-94) fL MCH 32 H (27-31) pg MCHC 34 (31-36) g/dL RDW 14 (10-15) % Plt Count 421 (150-450) 10^3/uL MPV 8.7 (7.4-10.4) fL Neut % (Auto) 64.3 % Lymph % (Auto) 19.0 % Swisher % (Auto) 12.2 % Eos % (Auto) 4.1 % Baso % (Auto) 0.4 % Absolute Neuts (auto) 9.2 H (1.5-7.7) 10^3/ul Absolute Lymphs (auto) 2.7 (1.0-4.8) 10^3/ul Absolute Monos (auto) 1.7 H (0-0.8) 10^3/ul Absolute Eos (auto) 0.6 (0-0.6) 10^3/ul Absolute Basos (auto) 0.1 (0-0.2) 10^3/ul Absolute Nucleated RBC 0.0 10^3/ul Nucleated RBC % 0.1 INR (Anticoag Therapy) 1.07 (0.82-1.09) APTT 26.3 (26.0-38.0) seconds Sodium 137 (135-145) mmol/L Potassium 3.7 (3.5-5.0) mmol/L Chloride 99 L (101-111) mmol/L Carbon Dioxide 30 (22-32) mmol/L Anion Gap 8 (2-11) mmol/L BUN 21 (6-24) mg/dL Creatinine 1.07 (0.67-1.17) mg/dL Est GFR ( Amer) 82.0 (>60) Est GFR (Non-Af Amer) 67.7 (>60) BUN/Creatinine Ratio 19.6 (8-20) Glucose 117 H (70-100) mg/dL Lactic Acid (0.5-2.0) mmol/L Calcium 8.9 (8.6-10.3) mg/dL Total Bilirubin 0.50 (0.2-1.0) mg/dL AST 24 (13-39) U/L ALT 57 H (7-52) U/L Alkaline Phosphatase 55 (34-104) U/L Troponin I 0.04 H* (<0.03) ng/mL Total Protein 6.6 (6.4-8.9) g/dL Albumin 3.7 (3.2-5.2) g/dL Globulin 2.9 (2-4) g/dL Albumin/Globulin Ratio 1.3 (1-3) Influenza A (Rapid) (Negative) Influenza B (Rapid) (Negative) 12/24/19 12/24/19 Range/Units 16:24 16:38 WBC (3.5-10.8) 10^3/uL RBC (4.18-5.48) 10^6 /uL Hgb (14.0-18.0) g/dL Hct (42-52) % MCV (80-94) fL MCH (27-31) pg MCHC (31-36) g/dL RDW (10-15) % Plt Count (150-450) 10^3/uL MPV (7.4-10.4) fL Neut % (Auto) % Lymph % (Auto) % Swisher % (Auto) % Eos % (Auto) % Baso % (Auto) % Absolute Neuts (auto) (1.5-7.7) 10^3/ul Absolute Lymphs (auto) (1.0-4.8) 10^3/ul Absolute Monos (auto) (0-0.8) 10^3/ul Absolute Eos (auto) (0-0.6) 10^3/ul Absolute Basos (auto) (0-0.2) 10^3/ul Absolute Nucleated RBC 10^3/ul Nucleated RBC % INR (Anticoag Therapy) (0.82-1.09) APTT (26.0-38.0) seconds Sodium (135-145) mmol/L Potassium (3.5-5.0) mmol/L Chloride (101-111) mmol/L Carbon Dioxide (22-32) mmol/L Anion Gap (2-11) mmol/L BUN (6-24) mg/dL Creatinine (0.67-1.17) mg/dL Est GFR ( Amer) (>60) Est GFR (Non-Af Amer) (>60) BUN/Creatinine Ratio (8-20) Glucose (70-100) mg/dL Lactic Acid 1.9 (0.5-2.0) mmol/L Calcium (8.6-10.3) mg/dL Total Bilirubin (0.2-1.0) mg/dL AST (13-39) U/L ALT (7-52) U/L Alkaline Phosphatase (34-104) U/L Troponin I (<0.03) ng/mL Total Protein (6.4-8.9) g/dL Albumin (3.2-5.2) g/dL Globulin (2-4) g/dL Albumin/Globulin Ratio (1-3) Influenza A (Rapid) Negative (Negative) Influenza B (Rapid) Negative (Negative) Result Diagrams: 12/24/19 16:24 12/24/19 16:24 Lab Statement: Any lab studies that have been ordered have been reviewed, and results considered in the medical decision making process. - Radiology CXR Radiology Interpretation Completed By: Radiologist Summary of Radiographic Findings: IMPRESSION: PATCHY CONSOLIDATION OF THE LEFT LUNG BASE. RECOMMEND FOLLOW-UP UNTIL RESOLUTION TO. EXCLUDE UNDERLYING PULMONARY PARENCHYMAL PATHOLOGY. THIS REPORT WAS REVIEWED BY ED PHYSICIAN. - EKG 1712 Cardiac Rate: NL - rate of 75 BPM EKG Rhythm: Sinus Rhythm Ectopy: PACs Summary of EKG Findings: EKG showed NSR with rate of 75 BPM, RBBB, PACs, no ischemic changes. ED physician has reviewed and interpreted this EKG. Disposition - Course Course Of Treatment: Patient is a 74 y/o M presenting to [facility] with reported bilateral PNA. He states that he has been in a [facility] for the past seven days for his PNA. However, he left against medical advice today at 0400 12/24/19 to fly back home to the [place] area. He states that he was instructed to go to the nearest hospital to continue antibiotic treatment. Last dose of antibiotic is reported to be cefepime; he has also been given Zithromax. Patient was receiving regular nebulizer treatments in [place] as well. Last CT and CXR were done on 12/18/19. Patient states that prior to his hospitalization, he was on a cruise to the [facility] and experienced onset of fever, cough, fatigue, chest congestion and SOB. He was diagnosed with influenza on 12/07/19. Patient took Tamiflu but later developed PNA. Patient notes Hx of leukemia, bladder cancer, lymphoma, COPD, and childhood asthma. PSHx of splenectomy in 2004. Patient notes that he occasionally smokes a cigar. No Hx of cardiac disease reported. On physical exam, bilateral expiratory wheezing, dry cough noted. EKG showed NSR with rate of 75 BPM, RBBB, PACs, no ischemic changes. CXR IMPRESSION: PATCHY CONSOLIDATION OF THE LEFT LUNG BASE. RECOMMEND FOLLOW-UP UNTIL RESOLUTION TO. EXCLUDE UNDERLYING PULMONARY PARENCHYMAL PATHOLOGY. Bloodwork was obtained. Trop was 0.04. Other abnormal values include WBC 14.3, MCH 32, absolute neuts 9.2, absolute monos 1.7, chlrodie 99, glucose 117, ALT 57. Influenza A and B were negative. During ED course, patient received fluids, cefepime 1 gm in 50 mls @ 100 mls/hr IV. Patients case was discussed with Dr. Fonseca, Dr. Fonseca accepts for admission. - Diagnoses Provider Diagnoses: Multifocal pneumonia, Elevated troponin - Physician Notifications Discussed Care Of Patient With: Sabine Fonseca Time Discussed With Above Provider: 17:08 Instructed by Provider To: Other - Patients case was discussed with Dr. Fonseca, Dr. Fonseca accepts for admission. Discharge ED - Sign-Out/Discharge Documenting (check all that apply): Patient Departure - admit - Discharge Plan Condition: Stable Disposition: ADMITTED TO [facility] - Billing Disposition and Condition Condition: STABLE Disposition: Admitted to [facility] - Attestation Statements Document Initiated by Scribe: Yes Documenting Scribe: KEVIN COOLEY Provider For Whom Scribe is Documenting (Include Credential): JAY JAY ALONZO DO Scribe Attestation: I, KEVIN COOLEY, scribed for JAY JAY ALONZO DO on 12/24/19 at 2024. Scribe Documentation Reviewed: Yes Provider Attestation: The documentation as recorded by the scribeKEVIN accurately reflects the service I personally performed and the decisions made by me, JAY JAY ALONZO DO Status of Scribe Document: Viewed
--- NOTE | 2019-12-24 20:53 | HP ---
CC: Dr. Braun; Dr. Glaser * HISTORY AND PHYSICAL: DATE OF ADMISSION: 12/24/19 PRIMARY CARE PROVIDER: Dr. Braun. CHIEF COMPLAINT: "Came from [facility], was diagnosed with pneumonia, needs to be hospitalized again." HISTORY OF PRESENT ILLNESS: Sin Chavez is a 74-year-old male with a history of status post splenectomy after diagnosis of CLL in 2004 as well as follicular cell lymphoma diagnosed later that was treated under the care of Dr. Glaser, currently as per the patient in remission, who went to a [employer] cruise at the beginning of December 2019. He stated that the cruise started on 12/03/19 and on 12/07/19, he was diagnosed with influenza A. At the same point, he also had a day of nausea, vomiting, and diarrhea. He stated that he was vomiting so much that he probably aspirated. The patient stated that he was treated with Tamiflu at this point for a full course of therapy, and he was staying in his room for the time of his treatment. His diarrhea and vomiting resolved within 24 hours. He stated that after the treatment, he still felt weak and started developing cough and fevers and when they disembarked from the ship on 12/18/19 , he was admitted to [facility] in [place] for pneumonia. He was diagnosed with aspiration pneumonia, initially treated with ceftriaxone and azithromycin, later on placed on cefepime. He was told by his primary attending that he needed to be on cefepime and to continue treatment. 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 He comes in with some medical records including a CAT scan of his bilateral lungs that showed bilateral lung opacities that was extensive. He also had lab work from his admission on 12/18/19, which showed WBC count of 21,000. On 12/23/19, his WBC count was down to 12. His kidney function was not impaired throughout his hospital stay. The patient stated he was advised strongly by his physicians in [place] to stay , but after 5 days of hospital stay there, he decided to sign against medical advice. He was also placed on prednisone 40 mg daily at discharge. Today, he presents to our emergency department since he just disembarked from a flight from [place] into [place] and he presents to be hospitalized. He states that he has not been febrile, but he still continues to have severe cough productive of green sputum. The patient is going to be placed on inpatient treatment and service with diagnosis of pneumonia. The patient's medications that he was discharged from [facility] include aspirin 81 mg daily, Lipitor 10 mg daily, dutasteride 0.5 mg daily, Monurol eye drops 1 drop both eyes daily, omeprazole 20 mg daily, tamsulosin 0.4 mg daily, valsartan/hydrochlorothiazide 150/12.5 mg daily, and prednisone 20 mg daily. PAST MEDICAL HISTORY: Includes: 1. CLL, status post splenectomy in 2004. 2. Follicular cell lymphoma, status post treatment. 3. History of bladder cancer, status post 2 BCG treatments. 4. Right bundle-branch block. 5. Vasectomy. 6. Hypertension. 7. Dyslipidemia. 8. Chronic lower back pain. MEDICATIONS: As above. ALLERGIES: No known drug allergies. FAMILY HISTORY: Positive for father who of abdominal aortic aneurysm dissection at the age of 44; mother who of Alzheimer's at the age of 78, she also had history of breast cancer. Brother with history of NM and abdominal aortic aneurysm, at age of 77. SOCIAL HISTORY: The patient has history of smoking 3 packs per day for approximately 20 years and he quit in 1993. He drinks a glass or 2 of wine a day. He denies any drug use. His surrogate is his . He is a full code. In regards of the patient's cruise, he was for 2 weeks in the [facility]. Most of the time, he spent in his cabin room on the cruise ship. Nevertheless, they traveled through [place], [facility], [facility], [place], and many of the other [facility] islands. Overall, he mentioned approximately 10 of them. REVIEW OF SYSTEMS: The patient stated that although his dyspnea is much improved and he had been afebrile, he still continues to cough green sputum. He also did not notice leg edema, but it is present on today's evaluation. The patient stated that he had submandibular lymph node noted approximately a month and a half ago. He was supposed to have further investigation, but he missed his appointment. It appears that he was treated by his dentist with penicillin VK for a total of 10 days on 11/24/19. All the remaining 12 systems were reviewed with the patient and were otherwise negative. PHYSICAL EXAMINATION GENERAL: The patient is a pleasant 74-year-old male with a BMI of 35. The patient is no acute distress and he is alert and oriented x3. VITAL SIGNS: Blood pressure of 158/93, heart rate of 75 and regular, respiratory rate 16, oxygen saturation 95% on room air, temperature 99.2. HEENT: Head: Atraumatic, normocephalic. Eyes: Pupils equal, reactive to light and accommodation. Oropharynx clear. Mucosa moist. NECK: Supple. Positive for submandibular lymph node, palpable approximately 2 cm in diameter on left. It is not tender. RESPIRATORY: Coarse rhonchi about the lower lobes. CARDIOVASCULAR: Regular rate and rhythm. No murmur. ABDOMEN: Distended. Soft, nontender. Bowel sounds are present in all 4 quadrants. EXTREMITIES: There is +1 pitting pedal edema bilaterally. Pulses are +2 bilaterally. There is no clubbing or cyanosis. NEUROLOGIC: On neuro evaluation, speech clear. Cranial nerves II through XII grossly intact. Motor strength is 5/5 bilaterally. SKIN: On evaluation of the skin, no ecchymotic areas or rashes noted. DIAGNOSTIC STUDIES/LAB DATA: Laboratory data included white blood cell count of 14.3, hemoglobin of 14.6, hematocrit of 43, and platelets of 421. Sodium was 137, potassium 3.7, chloride 99, carbon dioxide 30, BUN 21, creatinine 1.07. Liver function tests unremarkable apart from mild elevation of ALT of 57. Troponin of 0.04. Influenza testing is negative. Portable chest x-ray, impression: "Patchy consolidation of the left lung base, recommend followup until resolution to exclude underlying pulmonary parenchymal pathology." The patient's EKG showed known right bundle-branch block with left anterior hemiblock with heart rate of 75 beats per minute with no significant acute ST changes. Comparing with EKG of 2017, those changes appear chronic. ASSESSMENT AND PLAN: 1. Sepsis due to bilateral pneumonia. The patient was instructed by his physicians to continue on his cefepime. I will place the patient on cefepime and vancomycin. His sputum cultures for legionella and Strep pneumo were negative in [facility] in [place]. I will repeat those tests. Blood cultures were also obtained. I will also obtain further medical records from [facility] including blood cultures. For the time being, once again he is going to be placed on cefepime and vancomycin and admitted to the hospital. At this point at admission, he meets sepsis criteria. 2. The patient's mild elevation of liver function tests is probably due to ongoing illness. I do not believe that it needs to be repeated. 3. Enlarged lymph node in the left submandibular region. I will get a CT to evaluate further. 4. Tachycardia and dyspnea and the patient is status post prolonged stay and now plane travel. I will obtain a CT angiogram of the chest to evaluate and rule out pulmonary embolism. 5. The patient's elevation of troponin is very mild, likely due to demand ischemia. We will observe on telemetry monitored bed and repeat troponin later on during the daytime. 6. For DVT prophylaxis, the patient is going to be placed on heparin subcutaneously. 7. For his history of hypertension, his combination of valsartan and hydrochlorothiazide is to be continued. 8. The patient's code status is full. His surrogate is his . TIME SPENT: Approximately 75 minutes were spent on admission of this patient, more than half of that time was spent [id number] with the patient during the interview and physical exam. [id number]/[facility] #: [id number] RICHI
[2019-12-24] MEDS: Atorvastatin* 10 MG TAB PO SCH (20:59)
[2019-12-24] MEDS: Heparin VIAL(*) 5000 UNITS/ML VIAL (FIVE THOUSAND) SUBCUT SCH (20:59)
[2019-12-24] MEDS: Vancomycin(*) 1,500 MG in NS 0.9% 250 ML* 250 ML IVPB SCH (21:00)
[2019-12-24] MEDS: Sodium Chloride 5% OPTH.SOL* 15 ML BTL BOTH EYES SCH (21:04)
[2019-12-24 22:20] LABS: Troponin I 0.04 ng/mL (<0.03)
[2019-12-25 04:00] LABS: Urine Appearance Clear; Urine Bilirubin Negative (Negative); Urine Blood Negative (Negative); Urine Color Yellow; Urine Glucose Negative (Negative); Urine Ketones Negative (Negative); Urine Nitrite Negative (Negative); Urine Protein Negative (Negative); Urine Specific Gravity 1.035 (1.010-1.030); Urine Urobilinogen Negative (Negative)
[2019-12-25] MEDS: Acetaminophen TAB* 325 MG PO PRN ×2 (05:55→20:03)
[2019-12-25] MEDS: Cefepime 1 GM in Dextrose(*) 1 GM/50 ML BAG IV SCH ×2 (05:56→17:46)
[2019-12-25] MEDS: Heparin VIAL(*) 5000 UNITS/ML VIAL (FIVE THOUSAND) SUBCUT SCH ×3 (05:56→23:23)
[2019-12-25] MEDS ORDERED: cefTRIAXone(*) 1 GM in NS 0.9% 50 ML* 50 ML IVPB SCH (06:00)
[2019-12-25 06:37] LABS: Hematocrit 38 % (42-52); Hemoglobin 13.2 g/dL (14.0-18.0); Mean Corpuscular HGB Conc 35 g/dL (31-36); Mean Corpuscular Hemoglobin 32 pg (27-31); Mean Corpuscular Volume 93 fL (80-94); Mean Platelet Volume 9.2 fL (7.4-10.4); Platelet Count 361 10^3/uL (150-450); Red Cell Distribution Width 14 % (10-15); White Blood Count 10.6 10^3/uL (3.5-10.8)
[2019-12-25 06:51] LABS: BUN/Creatinine Ratio 20.7 (8-20); Calcium 8.3 mg/dL (8.6-10.3); EGFR African American 104.1 (>60); Magnesium 2.3 mg/dL (1.9-2.7)
[2019-12-25 07:09] LABS: ABS Basophils 0.1 10^3/ul (0-0.2); ABS Eosinophils 0.2 10^3/ul (0-0.6); ABS Lymphocytes 3.1 10^3/ul (1.0-4.8); ABS Neutrophils 6.3 10^3/ul (1.5-7.7); Eosinophil % 1.9 %; Lymphocyte % 28.8 %; Nucleated Red Blood Cells % 0.2
[2019-12-25] MEDS: Tamsulosin CAP* 0.4 MG PO SCH (08:23)
[2019-12-25] MEDS: Pantoprazole TAB * 40 MG TAB PO SCH (08:23)
[2019-12-25] MEDS: Vancomycin(*) 1,500 MG in NS 0.9% 250 ML* 250 ML IVPB SCH ×2 (08:23→20:02)
[2019-12-25] MEDS: Hydrochlorothiazide TAB* 25 MG PO SCH (08:23)
[2019-12-25] MEDS: Losartan TAB* 25 MG PO SCH (08:23)
[2019-12-25] MEDS: Sodium Chloride 5% OPTH OINT* 3.5 gm TUBE BOTH EYES SCH (08:26)
[2019-12-25] MEDS: Sodium Chloride 5% OPTH.SOL* 15 ML BTL BOTH EYES SCH ×3 (08:26→23:22)
--- NOTE | 2019-12-25 08:35 | PN ---
Subjective Date of Service: 12/25/19 Interval History: Pt feels well. Still coughing and coughing up "green" Objective Active Medications: Acetaminophen (Tylenol Tab*) 650 mg PO Q4H PRN PRN Reason: PAIN-MILD/TEMP >/= 100.4 Last Admin: 12/25/19 05:55 Dose: 650 mg Hydrocodone Bitart/Acetaminophen ([place] 5-325 Tab*) 1 tab PO Q8H PRN PRN Reason: PAIN - MODERATE Albuterol/Ipratropium (Duoneb (Albuterol 2.5 Mg/Ipratropium 0.5 Mg)) 1 neb INH [id number] AWAKE PRN PRN Reason: sob/wheexing Atorvastatin Calcium (Lipitor*) 10 mg PO BEDTIME [facility] Last Admin: 12/24/19 20:59 Dose: 10 mg Heparin Sodium (Porcine) (Heparin Vial(*)) 5,000 units SUBCUT Q8HR [facility] Last Admin: 12/25/19 05:56 Dose: 5,000 units Hydrochlorothiazide (Hydrodiuril Tab*) 12.5 mg PO DAILY [facility] Cefepime HCl (Maxipime 1 Gm In Dextrose Duplex (*)) 1 gm in 50 mls @ 100 mls/ hr IV Q12H [facility] Last Admin: 12/25/19 05:56 Dose: 100 mls/hr Vancomycin HCl 1,500 mg/ (Sodium Chloride) 250 mls @ 166.667 mls/hr IVPB Q12H [facility] Last Admin: 12/24/19 21:00 Dose: 166.667 mls/hr Losartan Potassium (Cozaar Tab*) 50 mg PO DAILY [facility] Pantoprazole Sodium (Protonix Tab*) 40 mg PO QAM [facility] Pharmacy Consult (Vancomycin Per Pharmacy*) 1 note FOLLOW UP .VANC PER PHARMACY [facility]; Protocol Pharmacy Profile Note (Vancomycin Trough Check) 1 note FOLLOW UP 0730 ONE Stop: 12/26/19 07:31 Prednisone (Deltasone 20 Mg Tab) 40 mg PO DAILY [facility] Sodium Chloride (Hypertonic) ([place] 128- 5% Opth Oint*) 1 applic BOTH EYES DAILY [facility] Sodium Chloride (Hypertonic) ([place] 128 Opth 5% Opth.Soll*) 1 drop BOTH EYES TID [facility] Last Admin: 12/24/19 21:04 Dose: Not Given Tamsulosin HCl (Flomax Cap*) [facility] Vital Signs - 8 hr 12/25/19 12/25/19 03:31 07:09 Temperature 97.7 F 96.4 F Pulse Rate 62 60 Respiratory 18 18 Rate Blood Pressure 143/76 130/74 (mmHg) O2 Sat by Pulse 96 96 Oximetry Oxygen Devices in Use Now: None Appearance: 74 yo M in nAD, AAOx3 Eyes: No Scleral Icterus, PERRLA Ears/Nose/Mouth/Throat: NL Teeth, Lips, Gums Neck: NL Appearance and Movements; NL JVP, - - L submandibular LN at approx 3 cm -not tender Respiratory: Symmetrical Chest Expansion and Respiratory Effort, - - rhonchi at b/l bases Cardiovascular: NL Sounds; No Murmurs; No JVD, RRR Abdominal: NL Sounds; No Tenderness; No Distention, No Hepatosplenomegaly Lymphatic: No Cervical Adenopathy Extremities: No Clubbing, Cyanosis, - - trace pedal edema b/l Skin: No Rash or Ulcers, No Nodules or Sclerosis Neurological: Alert and Oriented x 3, NL Muscle Strength and Tone Result Diagrams: 12/25/19 05:49 12/25/19 05:49 Additional Lab and Data: Lab Results 12/24/19 12/24/19 12/24/19 Range/Units 16:24 16:24 16:24 WBC 14.3 H (3.5-10.8) 10^3/uL RBC 4.62 (4.18-5.48) 10^6 /uL Hgb 14.6 (14.0-18.0) g/dL Hct 43 (42-52) % MCV 92 (80-94) fL MCH 32 H (27-31) pg MCHC 34 (31-36) g/dL RDW 14 (10-15) % Plt Count 421 (150-450) 10^3/uL MPV 8.7 (7.4-10.4) fL Neut % (Auto) 64.3 % Lymph % (Auto) 19.0 % [place] % (Auto) 12.2 % Eos % (Auto) 4.1 % Baso % (Auto) 0.4 % Absolute Neuts (auto) 9.2 H (1.5-7.7) 10^3/ul Absolute Lymphs (auto) 2.7 (1.0-4.8) 10^3/ul Absolute Monos (auto) 1.7 H (0-0.8) 10^3/ul Absolute Eos (auto) 0.6 (0-0.6) 10^3/ul Absolute Basos (auto) 0.1 (0-0.2) 10^3/ul Absolute Nucleated RBC 0.0 10^3/ul Nucleated RBC % 0.1 INR (Anticoag Therapy) 1.07 (0.82-1.09) APTT 26.3 (26.0-38.0) seconds Sodium 137 (135-145) mmol/L Potassium 3.7 (3.5-5.0) mmol/L Chloride 99 L (101-111) mmol/L Carbon Dioxide 30 (22-32) mmol/L Anion Gap 8 (2-11) mmol/L BUN 21 (6-24) mg/dL Creatinine 1.07 (0.67-1.17) mg/dL Est GFR ( Amer) 82.0 (>60) Est GFR (Non-Af Amer) 67.7 (>60) BUN/Creatinine Ratio 19.6 (8-20) Glucose 117 H (70-100) mg/dL Lactic Acid (0.5-2.0) mmol/L Calcium 8.9 (8.6-10.3) mg/dL Total Bilirubin 0.50 (0.2-1.0) mg/dL AST 24 (13-39) U/L ALT 57 H (7-52) U/L Alkaline Phosphatase 55 (34-104) U/L Troponin I 0.04 H* (<0.03) ng/mL Total Protein 6.6 (6.4-8.9) g/dL Albumin 3.7 (3.2-5.2) g/dL Globulin 2.9 (2-4) g/dL Albumin/Globulin Ratio 1.3 (1-3) Influenza A (Rapid) (Negative) Influenza B (Rapid) (Negative) 12/24/19 12/24/19 Range/Units 16:24 16:38 WBC (3.5-10.8) 10^3/uL RBC (4.18-5.48) 10^6 /uL Hgb (14.0-18.0) g/dL Hct (42-52) % MCV (80-94) fL MCH (27-31) pg MCHC (31-36) g/dL RDW (10-15) % Plt Count (150-450) 10^3/uL MPV (7.4-10.4) fL Neut % (Auto) % Lymph % (Auto) % [place] % (Auto) % Eos % (Auto) % Baso % (Auto) % Absolute Neuts (auto) (1.5-7.7) 10^3/ul Absolute Lymphs (auto) (1.0-4.8) 10^3/ul Absolute Monos (auto) (0-0.8) 10^3/ul Absolute Eos (auto) (0-0.6) 10^3/ul Absolute Basos (auto) (0-0.2) 10^3/ul Absolute Nucleated RBC 10^3/ul Nucleated RBC % INR (Anticoag Therapy) (0.82-1.09) APTT (26.0-38.0) seconds Sodium (135-145) mmol/L Potassium (3.5-5.0) mmol/L Chloride (101-111) mmol/L Carbon Dioxide (22-32) mmol/L Anion Gap (2-11) mmol/L BUN (6-24) mg/dL Creatinine (0.67-1.17) mg/dL Est GFR ( Amer) (>60) Est GFR (Non-Af Amer) (>60) BUN/Creatinine Ratio (8-20) Glucose (70-100) mg/dL Lactic Acid 1.9 (0.5-2.0) mmol/L Calcium (8.6-10.3) mg/dL Total Bilirubin (0.2-1.0) mg/dL AST (13-39) U/L ALT (7-52) U/L Alkaline Phosphatase (34-104) U/L Troponin I (<0.03) ng/mL Total Protein (6.4-8.9) g/dL Albumin (3.2-5.2) g/dL Globulin (2-4) g/dL Albumin/Globulin Ratio (1-3) Influenza A (Rapid) Negative (Negative) Influenza B (Rapid) Negative (Negative) Microbiology and Other Data: Microbiology 12/25/19 03:44 Legionella Urinary Antigen - Final Urine Negative Legionella Antigen Streptococcus pneumoniae Ag Screen - Final Negative S. pneumo Antigen Assess/Plan/Problems-Billing Assessment: 74 yo M with h/o follicular lymphoma, bladder ca (s/p BCG), CLL with recent dx of influenza A and gastroenteritis 12/07/19 (poss noravirus and subsequent aspiration) when on a cruise ship in the [place] (treated with Tamilflu). On 12/18/19 left the ship and was admitted to [facility] in [place] where he was tx with IV antibiotics till 12/23/19 when he signed out AMA to fly over to [place] 12/24 and be readmitted the same day. In November [address] LN enlargement for which he saw a dentist and was treated with Pen VK x 2 weeks - Patient Problems (1) Pneumonia Comment: pt was told in [place] that he needs to stay on Cefepime. Were still awaiting med records from [place]. From review of CT scan from [place] in c/w our CTA on 12/24/19-improvement of bibasiliar infiltrates noted. cont Cefepime/Vanc Today-leukocytosis resolved, I suspect pt may be able to go home tomorrow , but will await ID consult to guide further tx. (2) Enlarged lymph node in neck Comment: asked oncology to see pt in consult (3) HTN (hypertension) Comment: - Continue home meds, stable (4) On prednisone therapy Comment: pt was discharged from [facility] on Prednisone 40 mg daily-will cont for now, then taper off slowly. Awaiting med recoerds, but suspect it was a tx for either bronchospasm or severe PNA. (5) DVT prophylaxis Comment: HSQ Status and Disposition: inpatient
[2019-12-25] MEDS: guaiFENesin ER TAB 600 MG PO SCH ×2 (09:41→20:04)
[2019-12-25 10:29] LABS: C Reactive Protein 7.64 mg/L (<8.01)
--- NOTE | 2019-12-25 10:45 | PN ---
Progress Note - Progress Note Date of Service: 12/25/19 SOAP: Subjective: [This is a 74 yo male well known to the oncology service with h/o CLL and follicular pneumonia who was recently seen in the oncology clinic with a persistently enlarged submandibular LN. Recommendation at that time was for a US evaluation. CBC and LDH were WNL. He since traveled to [place] for a cruise but became ill on the ship and then admitted to a hospital in [place]. He then flew home yesterday and directly presented to our ER for readmission for continued treatment of his PNA. His respiratory symptoms appear to be slowly improving. Regarding the enlarged LN he reports that it has waxed and waned in size, but consistently palpable. He has had night sweats for the last month and fevers associated with his PNA. CT C/A/P in [place] did not identify any additional LAD. ] Objective: [ Vital Signs: Temp Pulse Resp BP Pulse Ox 96.4 F 60 18 130/74 96 12/25/19 07:09 12/25/19 07:09 12/25/19 07:09 12/25/19 07:09 12/25/19 07:09 Acetaminophen (Tylenol Tab*) 650 mg PO Q4H PRN PRN Reason: PAIN-MILD/TEMP >/= 100.4 Last Admin: 12/25/19 05:55 Dose: 650 mg Hydrocodone Bitart/Acetaminophen ([place] 5-325 Tab*) 1 tab PO Q8H PRN PRN Reason: PAIN - MODERATE Albuterol/Ipratropium (Duoneb (Albuterol 2.5 Mg/Ipratropium 0.5 Mg)) 1 neb INH [id number] AWAKE PRN PRN Reason: sob/wheexing Atorvastatin Calcium (Lipitor*) 10 mg PO BEDTIME [facility] Last Admin: 12/24/19 20:59 Dose: 10 mg Guaifenesin (Mucinex*) 1,200 mg PO BID [facility] Last Admin: 12/25/19 09:41 Dose: 1,200 mg Heparin Sodium (Porcine) (Heparin Vial(*)) 5,000 units SUBCUT Q8HR [facility] Last Admin: 12/25/19 05:56 Dose: 5,000 units Hydrochlorothiazide (Hydrodiuril Tab*) 12.5 mg PO DAILY [facility] Last Admin: 12/25/19 08:23 Dose: 12.5 mg Cefepime HCl (Maxipime 1 Gm In Dextrose Duplex (*)) 1 gm in 50 mls @ 100 mls/ hr IV Q12H [facility] Last Admin: 12/25/19 05:56 Dose: 100 mls/hr Vancomycin HCl 1,500 mg/ (Sodium Chloride) 250 mls @ 166.667 mls/hr IVPB Q12H [facility] Last Admin: 12/25/19 08:23 Dose: 166.667 mls/hr Losartan Potassium (Cozaar Tab*) 50 mg PO DAILY [facility] Last Admin: 12/25/19 08:23 Dose: 50 mg Pantoprazole Sodium (Protonix Tab*) 40 mg PO QAM [facility] Last Admin: 12/25/19 08:23 Dose: 40 mg Pharmacy Consult (Vancomycin Per Pharmacy*) 1 note FOLLOW UP .VANC PER PHARMACY [facility]; Protocol Pharmacy Profile Note (Vancomycin Trough Check) 1 note FOLLOW UP 0730 ONE Stop: 12/26/19 07:31 Prednisone (Deltasone 20 Mg Tab) 40 mg PO DAILY [facility] Last Admin: 12/25/19 08:23 Dose: 40 mg Sodium Chloride (Hypertonic) ([place] 128- 5% Opth Oint*) 1 applic BOTH EYES DAILY [facility] Last Admin: 12/25/19 08:26 Dose: Not Given Sodium Chloride (Hypertonic) ([place] 128 Opth 5% Opth.Soll*) 1 drop BOTH EYES TID [facility] Last Admin: 12/25/19 08:26 Dose: Not Given Tamsulosin HCl (Flomax Cap*) 0.4 mg PO QAM [facility] Last Admin: 12/25/19 08:23 Dose: 0.4 mg Laboratory Results - last 24 hr 12/24/19 12/24/19 12/24/19 16:24 16:24 16:24 WBC 14.3 H RBC 4.62 Hgb 14.6 Hct 43 MCV 92 MCH 32 H MCHC 34 RDW 14 Plt Count 421 MPV 8.7 Neut % (Auto) 64.3 Lymph % (Auto) 19.0 [place] % (Auto) 12.2 Eos % (Auto) 4.1 Baso % (Auto) 0.4 Absolute Neuts (auto) 9.2 H Absolute Lymphs (auto) 2.7 Absolute Monos (auto) 1.7 H Absolute Eos (auto) 0.6 Absolute Basos (auto) 0.1 Absolute Nucleated RBC 0.0 Immature Gran % Neutrophils % Band Neutrophils % Lymphocytes % Reactive Lymphs % Monocytes % Eosinophils % Metamyelocytes % Myelocytes % Blast Cells % Nucleated RBC % 0.1 Normal RBC Morphology INR (Anticoag Therapy) 1.07 APTT 26.3 Sodium 137 Potassium 3.7 Chloride 99 L Carbon Dioxide 30 Anion Gap 8 BUN 21 Creatinine 1.07 Est GFR ( Amer) 82.0 Est GFR (Non-Af Amer) 67.7 BUN/Creatinine Ratio 19.6 Glucose 117 H Lactic Acid Calcium 8.9 Magnesium Total Bilirubin 0.50 AST 24 ALT 57 H Alkaline Phosphatase 55 Troponin I 0.04 H* C-Reactive Protein Total Protein 6.6 Albumin 3.7 Globulin 2.9 Albumin/Globulin Ratio 1.3 Urine Color Urine Appearance Urine pH Ur Specific [place] Urine Protein Urine Ketones Urine Blood Urine Nitrate Urine Bilirubin Urine Urobilinogen Ur Leukocyte Esterase Urine Glucose Influenza A (Rapid) Influenza B (Rapid) 12/24/19 12/24/19 12/24/19 16:24 16:38 20:06 WBC RBC Hgb Hct MCV MCH MCHC RDW Plt Count MPV Neut % (Auto) Lymph % (Auto) [place] % (Auto) Eos % (Auto) Baso % (Auto) Absolute Neuts (auto) Absolute Lymphs (auto) Absolute Monos (auto) Absolute Eos (auto) Absolute Basos (auto) Absolute Nucleated RBC Immature Gran % Neutrophils % Band Neutrophils % Lymphocytes % Reactive Lymphs % Monocytes % Eosinophils % Metamyelocytes % Myelocytes % Blast Cells % Nucleated RBC % Normal RBC Morphology INR (Anticoag Therapy) APTT Sodium Potassium Chloride Carbon Dioxide Anion Gap BUN Creatinine Est GFR ( Amer) Est GFR (Non-Af Amer) BUN/Creatinine Ratio Glucose Lactic Acid 1.9 1.2 Calcium Magnesium Total Bilirubin AST ALT Alkaline Phosphatase Troponin I C-Reactive Protein Total Protein Albumin Globulin Albumin/Globulin Ratio Urine Color Urine Appearance Urine pH Ur Specific [place] Urine Protein Urine Ketones Urine Blood Urine Nitrate Urine Bilirubin Urine Urobilinogen Ur Leukocyte Esterase Urine Glucose Influenza A (Rapid) Negative Influenza B (Rapid) Negative 12/24/19 12/25/19 12/25/19 21:54 03:44 05:49 WBC 10.6 RBC 4.10 L Hgb 13.2 L Hct 38 L MCV 93 MCH 32 H MCHC 35 RDW 14 Plt Count 361 MPV 9.2 Neut % (Auto) 59.6 Lymph % (Auto) 28.8 [place] % (Auto) 9.1 Eos % (Auto) 1.9 Baso % (Auto) 0.6 Absolute Neuts (auto) 6.3 Absolute Lymphs (auto) 3.1 Absolute Monos (auto) 1.0 H Absolute Eos (auto) 0.2 Absolute Basos (auto) 0.1 Absolute Nucleated RBC 0.0 Immature Gran % 9.0 Neutrophils % 43.0 Band Neutrophils % 2.0 Lymphocytes % 19.0 Reactive Lymphs % 14.0 H Monocytes % 12.0 Eosinophils % 3.0 Metamyelocytes % 3.0 H Myelocytes % 4.0 H Blast Cells % 0.0 Nucleated RBC % 0.2 Normal RBC Morphology Normal INR (Anticoag Therapy) APTT Sodium Potassium Chloride Carbon Dioxide Anion Gap BUN Creatinine Est GFR ( Amer) Est GFR (Non-Af Amer) BUN/Creatinine Ratio Glucose Lactic Acid Calcium Magnesium Total Bilirubin AST ALT Alkaline Phosphatase Troponin I 0.04 H* C-Reactive Protein Total Protein Albumin Globulin Albumin/Globulin Ratio Urine Color Yellow Urine Appearance Clear Urine pH 6.0 Ur Specific [place] 1.035 H Urine Protein Negative Urine Ketones Negative Urine Blood Negative Urine Nitrate Negative Urine Bilirubin Negative Urine Urobilinogen Negative Ur Leukocyte Esterase Negative Urine Glucose Negative Influenza A (Rapid) Influenza B (Rapid) 12/25/19 05:49 WBC RBC Hgb Hct MCV MCH MCHC RDW Plt Count MPV Neut % (Auto) Lymph % (Auto) [place] % (Auto) Eos % (Auto) Baso % (Auto) Absolute Neuts (auto) Absolute Lymphs (auto) Absolute Monos (auto) Absolute Eos (auto) Absolute Basos (auto) Absolute Nucleated RBC Immature Gran % Neutrophils % Band Neutrophils % Lymphocytes % Reactive Lymphs % Monocytes % Eosinophils % Metamyelocytes % Myelocytes % Blast Cells % Nucleated RBC % Normal RBC Morphology INR (Anticoag Therapy) APTT Sodium 138 Potassium 4.0 Chloride 102 Carbon Dioxide 30 Anion Gap 6 BUN 18 Creatinine 0.87 Est GFR ( Amer) 104.1 Est GFR (Non-Af Amer) 86.0 BUN/Creatinine Ratio 20.7 H Glucose 83 Lactic Acid Calcium 8.3 L Magnesium 2.3 Total Bilirubin AST ALT Alkaline Phosphatase Troponin I C-Reactive Protein 7.64 Total Protein Albumin Globulin Albumin/Globulin Ratio Urine Color Urine Appearance Urine pH Ur Specific [place] Urine Protein Urine Ketones Urine Blood Urine Nitrate Urine Bilirubin Urine Urobilinogen Ur Leukocyte Esterase Urine Glucose Influenza A (Rapid) Influenza B (Rapid) Exam: Gen: mildly ill appearing 74 yo male in NAD HEENT: MMM Neck: firm, palpable L submandibular LN ~2 cm in diameter CV: RRR, no m/r/g Resp: few crackles at lung bases, no wheezes or rhonchi ] Assessment: [This is a 74 yo male with h/o CLL and follicular lymphoma admitted with PNA with a recent h/o an enlarged L submandibular LN. LAD preceeded his PNA and has not improved with recent abx. Reviewed CT neck and chest here and reports of chest/abd/pelvis from [place] which shows no additional LAD. Recent labs show no lymphocytosis. Submandiblar gland most likely represents a recurrence of follicular lymphoma, does not appear to be clinically aggressive course. ] Plan: [1. PNA - management per primary hospitalist team - appears to be improving 2. LAD - recommend excisional node bx of enlarged L submandibular LN - referral initiated to Dr Mejias as an outpatient will follow up with Dr Glaser in ~2 weeks to review pathology results. Dispo: d/c per hospitalist. No need for additional inpatient evaluation of LAD. Will follow closely as an outpt as reviewed above.]
[2019-12-25] MEDS: Atorvastatin* 10 MG TAB PO SCH (20:04)
[2019-12-26] MEDS: Cefepime 1 GM in Dextrose(*) 1 GM/50 ML BAG IV SCH (05:21)
[2019-12-26] MEDS: Heparin VIAL(*) 5000 UNITS/ML VIAL (FIVE THOUSAND) SUBCUT SCH (05:23)
[2019-12-26] MEDS ORDERED: Vancomycin Trough Check NOTE FOLLOW UP ONE (07:30)
[2019-12-26 07:59] VITALS: BP 144/79
[2019-12-26 08:32] LABS: EGFR African American 96.4 (>60); EGFR Non-African American 79.6 (>60)
[2019-12-26 08:52] LABS: Vancomycin Trough 10.9 mcg/mL
[2019-12-26] MEDS: guaiFENesin ER TAB 600 MG PO SCH (09:50)
[2019-12-26] MEDS: Tamsulosin CAP* 0.4 MG PO SCH (09:51)
[2019-12-26] MEDS: Pantoprazole TAB * 40 MG TAB PO SCH (09:51)
[2019-12-26] MEDS: Losartan TAB* 25 MG PO SCH (09:51)
[2019-12-26] MEDS: Hydrochlorothiazide TAB* 25 MG PO SCH (09:51)
[2019-12-26] MEDS: Sodium Chloride 5% OPTH OINT* 3.5 gm TUBE BOTH EYES SCH (09:57)
[2019-12-26] MEDS: Sodium Chloride 5% OPTH.SOL* 15 ML BTL BOTH EYES SCH (09:57)
[2019-12-26] MEDS: Vancomycin(*) 1,500 MG in NS 0.9% 250 ML* 250 ML IVPB SCH (10:18)
--- NOTE | 2019-12-26 12:03 | DS ---
CC: Dr. Braun; Dr. Glaser; Dr. Xie; Dr. Mejias; Dr. Vaca; MATT Garcia * DISCHARGE SUMMARY: DATE OF ADMISSION: 12/24/19 DATE OF DISCHARGE: 12/26/19 PRIMARY CARE PROVIDER: Dr. Braun. CONDITION AT DISCHARGE: Stable. DISPOSITION AT DISCHARGE: Home. DISCHARGE DIAGNOSES: 1. Basilar bilateral lung pneumonia. 2. Enlarged left submandibular lymph node. SECONDARY DIAGNOSES: 1. History of influenza at the beginning of December 2019. 2. History of diarrheal illness at the beginning of December 2019, possibility of norovirus. 3. Chronic lymphocytic leukemia, status post splenectomy in 2004. 4. Follicular cell lymphoma, status post treatment. 5. History of bladder cancer, status post 2 BCG treatments. 6. History of right bundle-branch block. 7. Vasectomy. 8. Hypertension. 9. Dyslipidemia. 10. Chronic lower back pain. MEDICATIONS AT HOME: Include prednisone taper at 20 mg daily for 2 days, then 10 mg daily for 2 days, then stop. The remaining medications are basically unchanged and include: 1. Vitamin B complex 1 capsule daily. 2. Tamsulosin 0.4 mg daily. 3. Sodium chloride ophthalmic solution 1 drop both eyes 3 times a day. 4. Pantoprazole 20 mg daily. 5. Irbesartan/hydrochlorothiazide 150/12.5 mg 1 tablet daily. 6. Hydrocodone with acetaminophen p.r.n. as previously taken. 7. Gabapentin 300 mg b.i.d. 8. Avodart 0.5 mg q.a.m. 9. CBD oil on a p.r.n. basis. 10. Lipitor 10 mg at bedtime. 11. Acetaminophen on a p.r.n. basis. CONSULTATIONS DURING THE HOSPITAL STAY: Included MATT Garcia and Dr. Glaser, Oncology; as well as Dr. Xie, Infectious Diseases. LABORATORY DATA AND STUDIES PERFORMED DURING THE HOSPITAL STAY: Included on , white blood cell count of 10.6, hemoglobin of 13.2, hematocrit of 38, and platelets of 361. Sodium 138, potassium 4.0, chloride 102, carbon dioxide 30, BUN 18, creatinine 0.87 that was reported on 12/25/19. The patient's troponins were 0.04 and they continued to be at this number. C-reactive protein was 7.64 documented on 12/25. The patient's CBC differential on 12/25/19 showed 3 metamyelocytes and 4 myelocytes, 3% eosinophils, 14% reactive lymphocytes. CT angiogram of the chest obtained on 12/24/19, impression: "Dense consolidation at the dependent portions of the lower lobes with air bronchograms concerning for multifocal pneumonia. No CT evidence of pulmonary embolism." Neck CT documented on 12/24/19, impression: "Approximately 2.6 x 1.5 cm pathologically enlarged left cervical level 1B lymph node adjacent to the left submandibular gland. Etiology unknown. Recommend ENT consultation." HOSPITALIZATION COURSE: Sin Chavez is a 74-year-old male who went on a [place] at the beginning of December. He subsequently developed influenza and diarrheal illness. He was vomiting and having diarrhea and he likely aspirated as he thought. After treated with Tamiflu, he continued to have cough and was in isolation at the cruise for the next 2 weeks. Finally, when they disembarked in [place] after the cruise on 12/18/19, he was admitted to a hospital in [place] in [place] for subsequent 6 days of hospital stay. There, he was treated with cefepime and azithromycin. He had a CT of the chest , which showed bilateral pneumonia. CT of the chest, abdomen, and pelvis did not show any marked abnormalities. The patient signed out against medical advice on 12/23/19 to travel back to [place] and came over to the hospital right away to be hospitalized here. When he arrived, he initially appeared to be septic with tachycardia and leukocytosis. His CT angiogram of the chest showed improvement, but still presence of bibasilar pneumonia. He was treated with ceftriaxone and vancomycin for the next 2 days. He was noted to have enlarged left submandibular lymph node, for which a CT of the neck confirmed lymphadenopathy. MATT Garcia from Dr. Glaser's service saw the patient in consultation and referred the patient to Dr. Mejias for excisional biopsy. The patient was on prednisone after his discharge against medical advice from the hospital in [place]. The prednisone was continued at 40 mg throughout his hospital stay and is going to be tapered down to off at discharge. On the day of discharge, Dr. Xie saw the patient for evaluation from Infectious Diseases and recommended discontinuation of antibiotics. The patient is going to follow up with Dr. Xie as an outpatient. DISCHARGE RECOMMENDATIONS: The patient is going home today with recommendations as follows: 1. Dr. Glaser's office is going to call the patient with a followup appointment. 2. The patient is recommended to follow up with Dr. Mejias and call Dr. Mejias's office for appointment. Dr. Glaser's office likely initiated already referral for excisional left submandibular lymph node biopsy. 3. Dr. Xie's office will likely call the patient in the next week with recommendations for a followup appointment. 4. The patient is also recommended to follow up with his primary care provider in 4 to 7 days. PHYSICAL EXAMINATION: At the time of discharge, blood pressure 144/79, heart rate of 61 and regular, respiratory rate 18, oxygen saturation 98% on room air, temperature 98.3. General: The patient is a very pleasant 74-year-old male, who is in no acute distress. The patient is alert and oriented x3. HEENT: Head: Atraumatic, normocephalic. Eyes: Pupils are equal, reactive to light and accommodation. Oropharynx is clear. Mucosa moist. Neck: Supple. No JVD. No bruits bilaterally. Cardiovascular: Regular rate and rhythm. No murmur. Respiratory: Bibasilar rhonchi, left more than right. Abdomen: Soft, nontender. Bowel sounds are present in all 4 quadrants. Extremities: There is trace bilateral ankle edema. Pulses are 2+ bilaterally. There is no clubbing or cyanosis. Please note that furthermore evaluation of the lymph nodes of the neck, the patient has enlarged left submandibular lymph node at approximately 2 to 3 cm in diameter. This is nontender on palpation. Please note that this is a short summary of the patient's hospitalization. Please refer to further medical records for details. TIME SPENT: Approximately 45 minutes was spent on the patient's discharge. [id number]/[facility] #: [id number] [facility] HEALTHJaqueline
--- NOTE | 2019-12-26 12:37 | CONS ---
CONSULTATION REPORT: DATE OF CONSULT: 12/26/19 REQUESTING PHYSICIAN: Dr. Fonseca. CONSULTING SERVICE: Infectious disease. REASON FOR CONSULT: Pneumonia. IMPRESSION: 1. Pneumonia with bibasilar infiltrates likely postinfluenza pneumonia, question of aspiration was raised. He does not endorse any symptoms of aspiration nor there is a possibility. He is overall significantly improved. I reviewed his microbiology records from the hospital in [place], pneumococcal, legionella antigen, blood cultures, respiratory PCR panel were all negative. He did by report have a positive influenza test on a cruise ship a few days before this more severe illness developed. 2. 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 Normal lymphocyte count on a smear, but 14% reactive lymphocytes. 3. Obesity. 4. Hypertension. RECOMMENDATIONS: He has had 8 days of IV antibiotics. He can stop those now. He can follow up with me next week and I will obtain a chest x-ray in about 3 to 4 weeks to ensure radiographic clearance. He understands the need to come back to the hospital for fevers, shortness of breath or worsening cough. He understands that he should expect some impressive fatigue for the next few weeks as he recovers. HISTORY OF PRESENT ILLNESS: This is a 74-year-old male with history of follicular lymphoma who was on a cruise in the [facility] and developed fever, malaise. He had an influenza test come back positive. He was started on Tamiflu. He started to feel a bit better and then developed significant diarrhea followed by cough, shortness of breath and fevers a few days after the influenza diagnosis. By that time, the ship was coming back to port, he was taken to the hospital in [place], where he had been started on broad-spectrum antibiotics. A chest x-ray and CT at that time showed bilateral small infiltrates predominantly at the bases. He had not noticed any coughing or trouble breathing when he ate or swallowed. His microbiology results from the hospital in [place] showed negative blood cultures, negative pneumococcal and legionella antigens and negative PCR respiratory panel from nasopharyngeal swab. He was improving on 5 days of antibiotics there and so decided to leave the hospital there. He flew to [place], got off the plane and came here. He was little bit tachycardic. He had some fluid hydration and was told that he was going to be okay and he has felt much better since. He felt particularly anxious when told that when he left the hospital [facility] in [place] that he had a 50 % chance of dying before he reached [place]. His CT here was compared to the CT that he left the hospital up there and it was essentially unchanged. Here he has had no oxygen requirements, saturating in the high 98% on room air. His tachycardias resolved. He is up walking in the hallways. He is eating well. He has no fevers, chills or sweats. He has occasional cough. Overall feeling much better. PAST MEDICAL HISTORY: 1. Follicular lymphoma, CLL with current left neck lymph node, which is scheduled for excision. 2. Obesity. 3. Status post splenectomy in 2004. 4. History of bladder cancer treated with BCG. 5. Status post vasectomy 6. Hypertension. 7. Hyperlipidemia. 8. Chronic low back pain. MEDICATIONS: 1. Tylenol. 2. Lipitor. 3. Cefepime 1 g every 12 hours (subcutaneous injection). 4. Hydrochlorothiazide. 5. Vicodin as needed. 6. Losartan. 7. Pantoprazole. 8. Prednisone 40 mg a day. 9. Tamsulosin. 10. Vancomycin. ALLERGIES: No known drug allergies. FAMILY HISTORY: Father from aneurysm dissection, mother of Alzheimer at 78. 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 He has past smoking history, quit in 1993. Lives with his . He had been on a cruise to the [place]. REVIEW OF SYSTEMS: All negative except as noted above to a 12-point review of systems PHYSICAL EXAM: Vital Signs: Temperature 37, heart rate 60, respiratory rate 18 , blood pressure 144/79, oxygen saturation 94% on room air. General: He is awake, not in distress. Neurologic: He is oriented x3. Follows all commands. HEENT: There is no conjunctival hemorrhage. Oropharynx without lesions. Neck : Supple without mass. Lymph nodes: There is a 1 cm left neck lymph node which is nontender and mobile. No other palpable lymphadenopathy. Heart: Regular rate and rhythm without murmurs, rubs, or gallops. Lungs: No wheeze, rales or rhonchi at the right base. There is no egophony. Abdomen: Soft, nontender, nondistended. There is bowel sounds present. Skin: There is no rash or splinter hemorrhage. Musculoskeletal: There is no spine tenderness to palpation or joint synovitis. DIAGNOSTIC STUDIES/LAB DATA: White blood cell count 10, hemoglobin 13, platelets 361, CRP 7, creatinine 0.8, urinalysis negative, influenza PCR negative. Please see impression and recommendations outlined above that I discussed with Dr. Fonseca. Thanks for asking me to see Mr. Chavez in consultation. [id number]/[facility] #: [id number] MTDD
== END 2019-12-26 11:10 | disposition home or self-care (01) | DRG 871 ==
LOC: ED 15:46 → MED 17:29
PROVIDERS: ADMIT Internal Medicine; ATTEND Internal Medicine
DX: A41.9 Sepsis, unspecified organism (principal); J18.9 Pneumonia, unspecified organism; C91.10 Chronic lymphocytic leukemia of B-cell type not having achieved remission; R59.0 Localized enlarged lymph nodes; I45.10 Unspecified right bundle-branch block; I10 Essential (primary) hypertension; E78.5 Hyperlipidemia, unspecified; M54.5 Low back pain; Z85.51 Personal history of malignant neoplasm of bladder; Z85.72 Personal history of non-Hodgkin lymphomas; Z79.899 Other long term (current) drug therapy; Z80.3 Family history of malignant neoplasm of breast; Z82.49 Family history of ischemic heart disease and other diseases of the circulatory system; Z87.891 Personal history of nicotine dependence; E66.9 Obesity, unspecified; Z68.35 Body mass index [BMI] 35.0-35.9, adult
CPT/HCPCS: 36415; 70491; 71046; 71275; 80048; 80053; 80202; 81003; 82565; 83605; 83735; 84484; 84520; 85025; 85060; 85610; 85730; 86140; 87040; 87899; 93005; 99233; 99285; A9270-GY; J0692; J1644; J3370; J7512; Q9967

== ENCOUNTER 2020-01-06 07:26 | Day surgery (SDC) | payer MEDICARE, BC ==
[~2020-01-06 07:26] MED LIST changes: -Acetaminophen TAB* 325 MG PO PRN; -Buffered Lidocaine 0.9% SYRIN* 5 ML/SYR SYRINGE INTRADERM ONE; +Buffered Lidocaine 1% SYRIN* 1 ML/SYRINGE INTRADERM ONE; +Famotidine IV* 10 MG/ML 2 ML (20 mg) IV ONE; +Lactated Ringers 1000 ML Bag* 1,000 ML IV SCH; +Levalbuterol 0.63MG/3ML NEB* UNIT OF USE INH ONE
[2020-01-06] MEDS ORDERED: Levalbuterol 0.63MG/3ML NEB* UNIT OF USE INH ONE (07:41)
[2020-01-06] MEDS ORDERED: Famotidine IV* 10 MG/ML 2 ML (20 mg) ONE (07:41)
[2020-01-06] MEDS ORDERED: Propofol* 10 MG/ML 20 ML BTL ONE (08:07)
[2020-01-06] MEDS ORDERED: Midazolam* 1 MG/ML 5 ML VIAL (5 MG) ONE (08:07)
[2020-01-06] MEDS ORDERED: Lidocaine 2% PF * 5 ML VIAL ONE (08:07)
[2020-01-06] MEDS ORDERED: Ondansetron INJ* 2 MG/ML VIAL ONE (08:07)
[2020-01-06] MEDS ORDERED: Dexamethasone IV* 4 MG/ML 1 ML (4 MG) ONE (08:07)
[2020-01-06] MEDS ORDERED: fentaNYL* 50 MCG/ML 2 ML VIAL (100 MCG VIAL) ONE ×2 (08:07→09:41)
[2020-01-06] MEDS ORDERED: KETAMINE HCL* 50 MG/ML 10 ML VIAL ONE (08:07)
[2020-01-06] MEDS ORDERED: Lidocaine 1% w EPI 1:100,000* MDV 20 ML VIAL ONE (08:41)
[2020-01-06] MEDS ORDERED: Bacitracin OINTMENT* 0.5% 0.5 oz TUBE ONE (08:41)
[2020-01-06] MEDS ORDERED: HYDROcodone/ACETAMIN 5-325 MG* 1 TAB PO PRN (08:43)
[2020-01-06] MEDS ORDERED: Levalbuterol 0.63MG/3ML NEB* UNIT OF USE INH PRN (08:43)
[2020-01-06] MEDS ORDERED: fentaNYL* 50 MCG/ML 2 ML VIAL (100 MCG VIAL) IV PRN (08:43)
[2020-01-06] MEDS ORDERED: Naloxone* 0.4 MG/ML 1 ML VIAL IV PRN (08:43)
[2020-01-06] MEDS ORDERED: Ondansetron INJ* 2 MG/ML VIAL IV PRN (08:43)
[2020-01-06] MEDS ORDERED: EPHEDrine (Pressors)* 50 MG/ML VIAL ONE (09:20)
[2020-01-06] MEDS ORDERED: Phenylephrine 40 MCG/ML SYRINGE ONE (09:20)
[2020-01-06] MEDS ORDERED: Ketorolac INJ* 30 MG/ML 1 ML VIAL ONE (09:42)
[2020-01-06 11:41] VITALS: BP 136/72
--- NOTE | 2020-01-06 21:46 | OP ---
OPERATIVE REPORT: DATE OF OPERATION: 01/06/20 DATE OF : 47 SURGEON: Al Mejias MD BRUSH FILLER HAND: Ruthie Gonsalez. ANESTHESIA: General. PRE-OP DIAGNOSIS: Left cervical adenopathy. POST-OP DIAGNOSIS: Left cervical adenopathy. OPERATIVE PROCEDURE: Excisional biopsy of the left cervical lymph node. INDICATIONS: This is a 74-year-old male with a history of follicular lymphoma, who presented with a left cervical lymph node which failed to respond to conservative treatment with antibiotics. His onc ologist sent him for evaluation for biopsy. ESTIMATED BLOOD LOSS: Negligible. SPECIMENS: Left cervical lymph node sent fresh to Pathology for lymphoma workup. DESCRIPTION OF PROCEDURE: On 01/06/20, the patient was brought to the operating room. General anest hesia was induced and LMA was placed. The patient had been marked in the holding area. His left nec k was prepped with Betadine and he was positioned. A time-out was performed. The intended incision site was then marked with a pen. Approximately 4 cc of 1% lidocaine with 1:100,000 epinephrine was i nfiltrated into subcutaneous soft tissue. An incision was made with a 15 blade through the overlying skin. The subcutaneous fat was dissected down to the level of platysma. The platysma was then cardenas sected. The incision and transition through the platysma was done as inferiorly as possible. I had to avoid potential injury to the marginal mandibular branch of the facial nerve. The platysma was di vided with a bipolar cautery and the lymph node was then clearly in the field. Gentle dissection was taken to free the lymph node from the surrounding soft tissue. It was very close to submandibular gl and. A bipolar was used to divide the small vascular and lymphatic attachments to the lymph node. T he lymph node did begin to break apart a little bit during delivery, although was largely intact. The lymph node was then handed off for pathologic evaluation. There was minimal bleeding from the wound site. A couple of small areas of oozing were controlled easily with the bipolar cautery. The wound was then copiously irrigated with saline. It was closed in layers. Platysma was closed with 3-0 Vi cryl as was dermis and a running subcuticular stitch was then performed with 4-0 nylon. Steri- Strip s were applied with Mastisol. The patient was then returned to the care of the anesthesiologist and delivered to PACU in stable condition. [id number]/[facility] #: [id number]
== END 2020-01-06 11:45 | disposition home or self-care (01) ==
LOC: OR 07:26
PROVIDERS: ATTEND Otolaryngology
DX: C83.71 Burkitt lymphoma, lymph nodes of head, face, and neck (principal); I10 Essential (primary) hypertension; I49.1 Atrial premature depolarization; G47.33 Obstructive sleep apnea (adult) (pediatric); J45.909 Unspecified asthma, uncomplicated; K21.9 Gastro-esophageal reflux disease without esophagitis; Z85.51 Personal history of malignant neoplasm of bladder
CPT/HCPCS: 88184; 88187; 88188; 88189; 88305; 88333; 88341; 88342; 88360; 88364; 88365; 88377; A9270-GY; J1100; J1885; J2250; J2405; J2704; J3010

== ENCOUNTER 2020-02-02 07:43 | Observation (INO) | payer MEDICARE, BC ==
[~2020-02-02 07:43] MED LIST changes: +APREPITANT IV* 130 MG in PREMIX* 0 ML IV SCH; -Buffered Lidocaine 1% SYRIN* 1 ML/SYRINGE INTRADERM ONE; +CARBOPLATIN IVPB SCH; +Dexamethasone IV* 8 MG in PREMIX* 0 ML IV SCH; +ETOPOSIDE IVPB SCH; -Famotidine IV* 10 MG/ML 2 ML (20 mg) IV ONE; +IFOSFAMIDE IVPB SCH; -Lactated Ringers 1000 ML Bag* 1,000 ML IV SCH; -Levalbuterol 0.63MG/3ML NEB* UNIT OF USE INH ONE; +MESNA IVPB SCH; +NS 0.9% IVPB SCH
[2020-02-02] MEDS ORDERED: Ondansetron INJ* 2 MG/ML VIAL IV PRN (08:53)
[2020-02-02] MEDS ORDERED: Acetaminophen TAB* 325 MG PO PRN (08:53)
[2020-02-02] MEDS ORDERED: Enoxaparin(*) 40 MG/0.4 ML SYR SUBCUT SCH ×2 (09:00→21:00)
[2020-02-02 10:10] LABS: Urine Appearance Clear; Urine Bilirubin Negative (Negative); Urine Blood Negative (Negative); Urine Color Straw; Urine Glucose Negative (Negative); Urine Ketones Negative (Negative); Urine Nitrite Negative (Negative); Urine Protein Negative (Negative); Urine Specific Gravity 1.004 (1.010-1.030); Urine Urobilinogen Negative (Negative)
[2020-02-02] MEDS: Tamsulosin CAP* 0.4 MG PO SCH (20:51)
[2020-02-02] MEDS ORDERED: THC PO SCH (21:00)
[2020-02-02] MEDS ORDERED: Atorvastatin* 10 MG TAB PO SCH (21:00)
[2020-02-03] MEDS ORDERED: IRBESARTAN PO SCH (09:00)
[2020-02-03] MEDS ORDERED: HYDROCHLOR PO SCH (09:00)
[2020-02-03] MEDS ORDERED: Pantoprazole TAB * 40 MG TAB PO SCH (09:00)
[2020-02-03] MEDS ORDERED: Losartan TAB* 25 MG PO SCH (09:00)
[2020-02-03] MEDS ORDERED: Hydrochlorothiazide TAB* 25 MG PO SCH (09:00)
[2020-02-03] MEDS ORDERED: Finasteride TAB* 5 MG PO SCH (09:00)
[2020-02-03] MEDS: Tamsulosin CAP* 0.4 MG PO SCH (09:02)
[2020-02-03] MEDS ORDERED: Dexamethasone IV* 4 MG/ML 1 ML (4 MG) IV SLOW PU ONE (11:00)
[2020-02-03] MEDS ORDERED: NS 0.9% IVPB ONE (11:00)
[2020-02-03] MEDS ORDERED: ETOPOSIDE IVPB ONE (11:00)
[2020-02-03 11:42] VITALS: BP 146/78
== END 2020-02-03 14:22 | disposition home or self-care (01) ==
LOC: CHOA 07:43 → SSU 08:53
PROVIDERS: ADMIT Internal Medicine Hematology & Oncology; ATTEND Internal Medicine Hematology & Oncology
DX: C82.11 Follicular lymphoma grade II, lymph nodes of head, face, and neck (principal); C85.10 Unspecified B-cell lymphoma, unspecified site; C91.11 Chronic lymphocytic leukemia of B-cell type in remission; D64.9 Anemia, unspecified; R00.2 Palpitations; Z79.899 Other long term (current) drug therapy
CPT/HCPCS: 81003; 96372; 96374; 99219; A9270-GY; G0378; J0185; J1100; J1650; J9045; J9181; J9208; J9209

== ENCOUNTER 2020-02-16 07:44 | Observation (INO) | payer MEDICARE, BC ==
[2020-02-16] MEDS ORDERED: Ondansetron INJ* 2 MG/ML VIAL IV PRN (10:26)
[2020-02-16] MEDS ORDERED: Acetaminophen TAB* 325 MG PO PRN (10:28)
[2020-02-16] MEDS ORDERED: Enoxaparin(*) 40 MG/0.4 ML SYR SUBCUT SCH ×2 (11:00→18:00)
[2020-02-16 11:31] LABS: Urine Appearance Clear; Urine Bilirubin Negative (Negative); Urine Blood Negative (Negative); Urine Color Yellow; Urine Glucose Negative (Negative); Urine Ketones Negative (Negative); Urine Nitrite Negative (Negative); Urine Protein Negative (Negative); Urine Specific Gravity 1.006 (1.010-1.030); Urine Urobilinogen Negative (Negative)
[2020-02-16] MEDS ORDERED: Acetaminophen TAB* 325 MG ONE (15:48)
[2020-02-16] MEDS ORDERED: LORazepam TAB(*) 0.5 MG PO PRN (16:12)
[2020-02-16] MEDS: Tamsulosin CAP* 0.4 MG PO SCH (20:10)
[2020-02-16] MEDS ORDERED: Atorvastatin* 10 MG TAB PO SCH (21:00)
[2020-02-17] MEDS ORDERED: NS 0.9% IVPB SCH ×2
[2020-02-17] MEDS ORDERED: Dexamethasone IV* 8 MG in PREMIX* 0 ML IV SCH ×2
[2020-02-17] MEDS ORDERED: ETOPOSIDE IVPB SCH ×2
[2020-02-17] MEDS: Tamsulosin CAP* 0.4 MG PO SCH (07:58)
[2020-02-17] MEDS ORDERED: Finasteride TAB* 5 MG PO SCH (09:00)
[2020-02-17] MEDS ORDERED: Hydrochlorothiazide TAB* 25 MG PO SCH (09:00)
[2020-02-17] MEDS ORDERED: Losartan TAB* 25 MG PO SCH (09:00)
[2020-02-17] MEDS ORDERED: Pantoprazole TAB * 40 MG TAB PO SCH (09:00)
[2020-02-17] MEDS ORDERED: NS 0.9% IVPB ONE (10:30)
[2020-02-17] MEDS ORDERED: Dexamethasone IV* 8 MG in PREMIX* 0 ML IVPB ONE (10:30)
[2020-02-17] MEDS ORDERED: ETOPOSIDE IVPB ONE (10:30)
[2020-02-17 11:16] VITALS: BP 136/67
--- NOTE | 2020-02-17 15:22 | DS ---
CC: Dr. Glaser* DATE OF ADMISSION: 02/16/2020. DATE OF DISCHARGE: 02/17/2020. PRIMARY ONCOLOGIST AND ATTENDING PHYSICIAN: Dr. Dieudonne Glaser* (dictated by MATT Kenny). PRIMARY DISCHARGE DIAGNOSIS: Diffuse large B cell lymphoma, Burkitt's type, status post cycle two of RICE chemotherapy with good clinical response. DISCHARGE MEDICATIONS: 1. Atorvastatin 10 mg p.o. at bedtime. 2. Dutasteride 0.5 mg p.o. daily. 3. Medical marijuana at bedtime as needed. 4. Ondansetron 4 mg p.o. q.4 hours as needed for nausea and vomiting. 5. Protonix 20 mg p.o. daily. 6. Compazine 10 mg p.o. q.6 hours as needed for nausea and vomiting. 7. Flomax 0.4 mg p.o. twice daily. 8. Acetaminophen. 9. Neupogen 480 mcg subcu daily starting 02/19/2020 through 02/26/2020. 10. Irbestartan-Hydrochlorothiazide two tablets p.o. daily. HOSPITAL IMAGING: None. HOSPITAL COURSE: This is a 74-year-old gentleman with a relatively new diagnosis of diffuse large B cell lymphoma, Burkitt's type who was admitted for 24 hour infusion associated with RICE chemotherapy. This is cycle two. He has been tolerating treatment extremely well with a good clinical response seen by dramatic improvement in his left cervical node. There were no complications during this hospitalization. He had minimal symptoms. DISPOSITION AND FOLLOW-UP PLAN: The patient is being discharged to home in stable condition. He will begin Neupogen on Thursday, February 18 and have those injections available to him at home for self-administration. He has a follow- up with a lymphoma specialist at [place], Dr. Nguyễn, on Thursday the and then another consultation with the transplant specialist, Dr. Rios, on Thursday the . The patient is instructed to contact the Oncology office with any questions or concerns. MATT KENNY [id number]/[facility] #: [id number] [facility]
== END 2020-02-17 13:19 | disposition home or self-care (01) ==
LOC: CHOA 07:44 → SSU 10:26
PROVIDERS: ADMIT Internal Medicine Hematology & Oncology; ATTEND Internal Medicine Hematology & Oncology
DX: C83.30 Diffuse large B-cell lymphoma, unspecified site (principal); C83.70 Burkitt lymphoma, unspecified site; Z79.899 Other long term (current) drug therapy; Z86.2 Personal history of diseases of the blood and blood-forming organs and certain disorders involving the immune mechanism; Z92.21 Personal history of antineoplastic chemotherapy
CPT/HCPCS: 81003; 96372; 96374; 96375; 99219; A9270-GY; G0378; J0185; J1100; J1650; J9045; J9181; J9208; J9209; Q0164

== ENCOUNTER 2020-03-01 07:45 | Observation (INO) ==
[~2020-03-01 07:45] MED LIST changes: +APREPITANT 130 MG in Premix IV 0 ML IV SCH; -APREPITANT IV* 130 MG in PREMIX* 0 ML IV SCH; +Dexamethasone IV 8 MG in Premix IV 0 ML IV SCH; -Dexamethasone IV* 8 MG in PREMIX* 0 ML IV SCH
[2020-03-01] MEDS ORDERED: Ondansetron ODT 4 mg TAB 4 MG TAB PO PRN (12:41)
[2020-03-01] MEDS ORDERED: Enoxaparin 40 MG/0.4 ML SYR(*) SUBCUT SCH (13:00)
[2020-03-01 15:55] LABS: Urine Appearance Clear; Urine Bilirubin Negative (Negative); Urine Blood Negative (Negative); Urine Color Yellow; Urine Glucose 2+(150 mg/dL) (Negative); Urine Ketones 2+ (Negative); Urine Nitrite Negative (Negative); Urine Protein Negative (Negative); Urine Urobilinogen Negative (Negative)
[2020-03-01 20:54] VITALS: BP 121/80
[2020-03-02] MEDS ORDERED: Aspirin EC 81 mg TAB.EC (enteric coated) PO SCH (09:00)
[2020-03-02] MEDS ORDERED: Dexamethasone IV 4 MG/ML VIAL 1 ml VIAL IV SLOW PU ONE (10:45)
[2020-03-02] MEDS ORDERED: NS 0.9% IVPB ONE (11:00)
[2020-03-02] MEDS ORDERED: ETOPOSIDE IVPB ONE (11:00)
== END 2020-03-02 13:00 | disposition home or self-care (01) ==
LOC: CHOA 07:45 → SSU 12:38 → UNDOADMOB 13:37 → INTOOBSV 13:37 → SSU 13:37
PROVIDERS: ADMIT Internal Medicine Hematology & Oncology; ATTEND Internal Medicine Hematology & Oncology

== ENCOUNTER 2022-08-19 10:20 | Inpatient (IN) ==
[2022-08-19] MEDS: Dexamethasone IV 4 MG/ML VIAL 1 ml VIAL IV SLOW PU SCH (16:17)
[2022-08-19] MEDS: HYDROcodone/ACETAMIN 5/325 mg TAB PO SCH (18:00)
[2022-08-19] MEDS: Enoxaparin 40 MG/0.4 ML SYR SUBCUT SCH (18:01)
[2022-08-19] MEDS ORDERED: Gadoteridol (CONTRAST) 279.3 MG/ML 10 ML IV ONE (20:12)
[2022-08-19] MEDS: Sodium Chloride 2% OPTH.SOL 15 ML BTL BOTH EYES SCH (23:21)
[2022-08-19] MEDS: Sodium Chloride 5% OPTH OINT 3.5 gm TUBE BOTH EYES SCH (23:22)
[2022-08-20] MEDS: Dexamethasone IV 4 MG/ML VIAL 1 ml VIAL IV SLOW PU SCH ×4 (00:26→23:42)
[2022-08-20] MEDS: HYDROcodone/ACETAMIN 5/325 mg TAB PO SCH ×5 (00:29→23:41)
[2022-08-20] MEDS: Sodium Chloride 2% OPTH.SOL 15 ML BTL BOTH EYES SCH ×2 (08:47→20:24)
[2022-08-20] MEDS: Cholecalciferol (VIT D3) 1,000 unit TAB PO SCH (08:48)
[2022-08-20] MEDS ORDERED: Irbesartan/Hydrochlor 150/12.5 TAB PO SCH (09:00)
[2022-08-20] MEDS: Enoxaparin 40 MG/0.4 ML SYR SUBCUT SCH (16:31)
[2022-08-20] MEDS: Sodium Chloride 5% OPTH OINT 3.5 gm TUBE BOTH EYES SCH (20:24)
[2022-08-21] MEDS: HYDROcodone/ACETAMIN 5/325 mg TAB PO SCH ×3 (05:17→17:20)
[2022-08-21 05:21] LABS: ABS Lymphocytes 1.4 10^3/ul (1.0-4.8); ABS Monocytes 0.6 10^3/ul (0-0.8); ABS Neutrophils 10.9 10^3/ul (1.5-7.7); Hematocrit 30 % (42-52); Hemoglobin 9.7 g/dL (14.0-18.0); Lymphocyte % 10.9 %; Mean Corpuscular HGB Conc 33 g/dL (31-36); Mean Corpuscular Hemoglobin 33 pg (27-31); Mean Corpuscular Volume 102 fL (80-94); Mean Platelet Volume 8.9 fL (7.4-10.4); Nucleated Red Blood Cells % 0.1; Platelet Count 277 10^3/uL (150-450); Red Blood Count 2.89 10^6 /uL (4.18-5.48); Red Cell Distribution Width 16 % (10-15); White Blood Count 12.9 10^3/uL (3.5-10.8)
[2022-08-21 05:26] LABS: INR 0.95 (0.89-1.11)
[2022-08-21 05:57] LABS: Albumin 3.3 g/dL (3.2-5.2); Albumin/Globulin Ratio 1.6 (1-3); Calcium 9.6 mg/dL (8.6-10.3); Globulin 2.1 g/dL (2-4); Potassium 4.9 mmol/L (3.5-5.0); Total Bilirubin 0.7 mg/dL (0.2-1.0); Total Protein 5.4 g/dL (6.4-8.9); eGFR CKD-EPI 90.1 (>60)
[2022-08-21] MEDS: Cholecalciferol (VIT D3) 1,000 unit TAB PO SCH (08:30)
[2022-08-21] MEDS: Sodium Chloride 2% OPTH.SOL 15 ML BTL BOTH EYES SCH ×2 (08:33→23:44)
[2022-08-21] MEDS: Dexamethasone IV 4 MG/ML VIAL 1 ml VIAL IV SLOW PU SCH ×2 (08:33→15:57)
[2022-08-21 09:24] LABS: Phosphorus 5.4 mg/dL (2.5-5.0); Uric Acid 9.3 mg/dL (4.4-7.6)
[2022-08-21] MEDS ORDERED: fentaNYL 100 mcg/2 ml 50 MCG/ML VIAL ONE (09:50)
[2022-08-21 15:10] LABS: Body Fluid Source Cerebral Spinal
[2022-08-21] MEDS ORDERED: NS 0.9% 1000 ml BAG 1,000 ML IV ONE (15:30)
[2022-08-21] MEDS: Enoxaparin 40 MG/0.4 ML SYR SUBCUT SCH (15:57)
[2022-08-21 16:38] LABS: CSF Glucose 88 mg/dL (40-70)
[2022-08-21 16:55] LABS: Body Fluid Appearance Clear; Body Fluid Color Colorless; CSF Tube # 2 OF 2
[2022-08-21 16:56] LABS: Body Fluid WBC 2 /mcL
[2022-08-21 17:54] LABS: Body Fluid Mono 50 %; Body Fluid Total Cells Counted 26
[2022-08-21] MEDS: Sodium Chloride 5% OPTH OINT 3.5 gm TUBE BOTH EYES SCH (23:44)
[2022-08-22] MEDS: Dexamethasone IV 4 MG/ML VIAL 1 ml VIAL IV SLOW PU SCH ×2 (00:20→08:49)
[2022-08-22] MEDS: HYDROcodone/ACETAMIN 5/325 mg TAB PO SCH ×3 (00:21→12:50)
[2022-08-22 06:26] VITALS: BP 131/65
[2022-08-22] MEDS: Cholecalciferol (VIT D3) 1,000 unit TAB PO SCH (08:50)
[2022-08-22] MEDS ORDERED: Perflutren Lipid Microsphere 3 ML VIAL ONE (10:59)
[2022-08-22] MEDS: Sodium Chloride 2% OPTH.SOL 15 ML BTL BOTH EYES SCH (11:19)
[2022-08-22 14:04] LABS: Hepatitis B Surface Antigen Nonreactive (Nonreactive)
[2022-08-22 14:09] LABS: Hepatitis A Ab IgM Negative (Negative); Hepatitis B Core IgM Nonreactive (Nonreactive)
[2022-08-22 14:21] LABS: Hepatitis C Antibody Negative (Negative)
[2022-08-27 17:59] LABS: BLYM Result Summary Positive
[2022-08-29 13:55] LABS: FBLP Result Summary Normal
== END 2022-08-22 13:00 | disposition home or self-care (01) | DRG 841 ==
LOC: MED 10:20 → CHOAEAST 10:20 → SUATTDRO 15:02
PROVIDERS: ADMIT Internal Medicine Hematology & Oncology; ATTEND Student in an Organized Health Care Education/Training Program

== ENCOUNTER 2022-08-28 08:10 | Observation (INO) ==
[~2022-08-28 08:10] MED LIST changes: -APREPITANT 130 MG in Premix IV 0 ML IV SCH; -CARBOPLATIN IVPB SCH; +CYTARABINE IVPB SCH; +Dexamethasone IV 40 MG in NS 0.9% 50 ML 50 ML IVPB SCH; -Dexamethasone IV 8 MG in Premix IV 0 ML IV SCH; -ETOPOSIDE IVPB SCH; -IFOSFAMIDE IVPB SCH; -MESNA IVPB SCH; +Methotrexate PF 12 MG in NS Sodium Chloride 0.9% PF 9.52 ML INTRATHEC SCH
[2022-08-28 08:44] LABS: ABS Lymphocytes 1.2 10^3/ul (1.0-4.8); ABS Monocytes 1.3 10^3/ul (0-0.8); Eosinophil % 0.1 %; Hematocrit 37 % (42-52); Hemoglobin 11.7 g/dL (14.0-18.0); Lymphocyte % 6.9 %; Mean Corpuscular HGB Conc 32 g/dL (31-36); Mean Corpuscular Hemoglobin 32 pg (27-31); Mean Corpuscular Volume 101 fL (80-94); Mean Platelet Volume 8.7 fL (7.4-10.4); Nucleated Red Blood Cells % 0.1; Platelet Count 286 10^3/uL (150-450); Red Blood Count 3.63 10^6 /uL (4.18-5.48); Red Cell Distribution Width 16 % (10-15); White Blood Count 17.6 10^3/uL (3.5-10.8)
[2022-08-28 08:52] LABS: Albumin 3.8 g/dL (3.2-5.2); Calcium 9.2 mg/dL (8.6-10.3); Potassium 4.3 mmol/L (3.5-5.0); Total Bilirubin 0.7 mg/dL (0.2-1.0)
[2022-08-28] MEDS ORDERED: Lidocaine 2% PF 5 ML VIAL ONE (08:54)
[2022-08-28 08:59] LABS: Albumin/Globulin Ratio 1.5 (1-3); Globulin 2.5 g/dL (2-4); Phosphorus 3.6 mg/dL (2.5-5.0); Total Protein 6.3 g/dL (6.4-8.9); Uric Acid 5.4 mg/dL (4.4-7.6)
[2022-08-28] MEDS ORDERED: PREDNISOLONE ACETATE 1% BOTH EYES SCH (13:00)
[2022-08-28] MEDS ORDERED: Ondansetron ODT 4 mg TAB 4 MG TAB PO PRN (15:00)
[2022-08-28] MEDS ORDERED: Enoxaparin 40 MG/0.4 ML SYR SUBCUT SCH (16:00)
[2022-08-28] MEDS: PREDNISOLONE ACETATE 1% BOTH EYES SCH (19:50)
[2022-08-28] MEDS ORDERED: NS 0.9% IVPB ONE (20:00)
[2022-08-28] MEDS ORDERED: CYTARABINE IVPB ONE (20:00)
[2022-08-29] MEDS: PREDNISOLONE ACETATE 1% BOTH EYES SCH ×2 (02:20→08:46)
[2022-08-29 05:43] LABS: ABS Lymphocytes 0.9 10^3/ul (1.0-4.8); ABS Neutrophils 11.2 10^3/ul (1.5-7.7); Hematocrit 34 % (42-52); Hemoglobin 10.9 g/dL (14.0-18.0); Lymphocyte % 7.2 %; Mean Corpuscular HGB Conc 33 g/dL (31-36); Mean Corpuscular Hemoglobin 33 pg (27-31); Mean Corpuscular Volume 102 fL (80-94); Mean Platelet Volume 8.9 fL (7.4-10.4); Nucleated Red Blood Cells % 0.1; Platelet Count 254 10^3/uL (150-450); Red Cell Distribution Width 15 % (10-15); White Blood Count 13.2 10^3/uL (3.5-10.8)
[2022-08-29 06:06] LABS: Albumin 3.3 g/dL (3.2-5.2); Albumin/Globulin Ratio 1.7 (1-3); Calcium 8.6 mg/dL (8.6-10.3); Globulin 1.9 g/dL (2-4); Phosphorus 3.8 mg/dL (2.5-5.0); Potassium 4.7 mmol/L (3.5-5.0); Total Bilirubin 0.7 mg/dL (0.2-1.0); Total Protein 5.2 g/dL (6.4-8.9)
[2022-08-29] MEDS ORDERED: Dexamethasone IV 10 MG in NS 0.9% 50 ML 50 ML IVPB ONE (09:00)
[2022-08-29 10:37] VITALS: BP 149/76
== END 2022-08-29 12:00 | disposition home or self-care (01) ==
LOC: CHOA 08:10 → MED 08:10
PROVIDERS: ADMIT Internal Medicine Hematology & Oncology; ATTEND Internal Medicine Hematology & Oncology

== ENCOUNTER 2022-09-18 07:59 | Observation (INO) ==
[2022-09-18] MEDS ORDERED: Ondansetron 4 mg VIAL 2 MG/ML 2 ml VIAL ONE (11:38)
[2022-09-18] MEDS ORDERED: HYDROcodone/ACETAMIN 5/325 mg TAB PO PRN (12:36)
[2022-09-18] MEDS ORDERED: Dexamethasone IV 20 MG in NS 0.9% 50 ML 50 ML IVPB ONE (13:30)
[2022-09-18] MEDS ORDERED: Ondansetron ODT 4 mg TAB 4 MG TAB PO PRN (15:37)
[2022-09-18] MEDS: prednisoLONE 1% OPHTH.SUSP 5 ML OPHTH.SUSP BOTH EYES SCH ×2 (16:32→22:45)
[2022-09-18] MEDS ORDERED: Enoxaparin 40 MG/0.4 ML SYR SUBCUT SCH (17:00)
[2022-09-18] MEDS ORDERED: NS 0.9% IVPB ONE (20:00)
[2022-09-18] MEDS ORDERED: CYTARABINE IVPB ONE (20:00)
[2022-09-19 06:03] LABS: Albumin 3.6 g/dL (3.2-5.2); Albumin/Globulin Ratio 1.8 (1-3); Calcium 9.1 mg/dL (8.6-10.3); Potassium 4.3 mmol/L (3.5-5.0); Total Bilirubin 0.4 mg/dL (0.2-1.0); Total Protein 5.6 g/dL (6.4-8.9); eGFR CKD-EPI 89.4 (>60)
[2022-09-19 07:43] LABS: ABS Lymphocytes 0.6 10^3/ul (1.0-4.8); ABS Neutrophils 12.4 10^3/ul (1.5-7.7); ABS Nucleated RBC 0.1 10^3/ul; Hematocrit 31 % (42-52); Hemoglobin 10.4 g/dL (14.0-18.0); Lymphocyte % 4.5 %; Mean Corpuscular HGB Conc 33 g/dL (31-36); Mean Corpuscular Hemoglobin 34 pg (27-31); Mean Corpuscular Volume 103 fL (80-94); Mean Platelet Volume 9.9 fL (7.4-10.4); Nucleated Red Blood Cells % 0.8; Platelet Count 152 10^3/uL (150-450); Red Blood Count 3.05 10^6 /uL (4.18-5.48); Red Cell Distribution Width 16 % (10-15); White Blood Count 14.1 10^3/uL (3.5-10.8)
[2022-09-19 07:46] VITALS: BP 109/62
[2022-09-19] MEDS ORDERED: Irbesartan/Hydrochlor 150/12.5 TAB PO SCH (09:00)
[2022-09-19] MEDS ORDERED: Dexamethasone IV 40 MG in NS 0.9% 50 ML 50 ML IVPB ONE (09:00)
[2022-09-19] MEDS ORDERED: Famotidine IV 10 MG/ML 2 ml VIAL (20 mg) IV SLOW PU ONE (09:11)
[2022-09-19] MEDS: prednisoLONE 1% OPHTH.SUSP 5 ML OPHTH.SUSP BOTH EYES SCH ×2 (09:33→13:45)
[2022-09-19] MEDS ORDERED: Cholecalciferol (VIT D3) 1,000 unit TAB PO SCH (12:00)
== END 2022-09-19 12:30 | disposition home or self-care (01) ==
LOC: CHOA 07:59 → MED 07:59
PROVIDERS: ADMIT Internal Medicine Hematology & Oncology; ATTEND Internal Medicine Hematology & Oncology

== ENCOUNTER 2022-10-14 07:48 | Observation (INO) ==
[2022-10-14] MEDS ORDERED: Enoxaparin 40 MG/0.4 ML SYR SUBCUT SCH ×2 (09:00→21:00)
[2022-10-14] MEDS ORDERED: Dexamethasone IV 4 MG/ML VIAL 1 ml VIAL IV SLOW PU SCH (09:00)
[2022-10-14] MEDS ORDERED: HYDROcodone/ACETAMIN 5/325 mg TAB PO PRN (09:00)
[2022-10-14] MEDS ORDERED: DUTASTERIDE 0.5 MG PO SCH (09:00)
[2022-10-14] MEDS ORDERED: Irbesartan/Hydrochlor 150/12.5 TAB PO SCH (09:00)
[2022-10-14] MEDS ORDERED: Ondansetron ODT 4 mg TAB 4 MG TAB PO PRN (15:33)
[2022-10-14] MEDS: PRAVASTATIN 80 MG PO SCH (16:35)
[2022-10-14] MEDS: prednisoLONE 1% OPHTH.SUSP 5 ML OPHTH.SUSP BOTH EYES SCH ×2 (16:35→22:07)
[2022-10-14] MEDS: VITAMIN B COMPLEX PO SCH (16:36)
[2022-10-14] MEDS ORDERED: NS 0.9% IVPB ONE (20:00)
[2022-10-14] MEDS ORDERED: CYTARABINE IVPB ONE (20:00)
[2022-10-14] MEDS: Multivitamins/Minerals TAB PO SCH (22:05)
[2022-10-15 05:28] LABS: Hematocrit 29 % (42-52); Hemoglobin 9.2 g/dL (14.0-18.0); Mean Corpuscular HGB Conc 32 g/dL (31-36); Mean Corpuscular Hemoglobin 33 pg (27-31); Mean Corpuscular Volume 103 fL (80-94); Mean Platelet Volume 8.7 fL (7.4-10.4); Platelet Count 232 10^3/uL (150-450); Red Blood Count 2.77 10^6 /uL (4.18-5.48); Red Cell Distribution Width 19 % (10-15); White Blood Count 16.7 10^3/uL (3.5-10.8)
[2022-10-15 05:31] LABS: ABS Lymphocytes 0.4 10^3/ul (1.0-4.8); ABS Monocytes 1.8 10^3/ul (0-0.8); ABS Neutrophils 14.4 10^3/ul (1.5-7.7); Lymphocyte % 2.4 %; Nucleated Red Blood Cells % 0.1
[2022-10-15 06:36] LABS: Albumin 3.4 g/dL (3.2-5.2); Calcium 8.4 mg/dL (8.6-10.3); Globulin 1.7 g/dL (2-4); Potassium 4.6 mmol/L (3.5-5.0); Total Bilirubin 0.4 mg/dL (0.2-1.0); Total Protein 5.1 g/dL (6.4-8.9); eGFR CKD-EPI 93.5 (>60)
[2022-10-15] MEDS ORDERED: Dexamethasone IV 40 MG in NS 0.9% 50 ML 50 ML IVPB ONE (08:00)
[2022-10-15 08:26] VITALS: BP 135/71
[2022-10-15] MEDS: Multivitamins/Minerals TAB PO SCH (09:28)
[2022-10-15] MEDS: prednisoLONE 1% OPHTH.SUSP 5 ML OPHTH.SUSP BOTH EYES SCH (09:32)
[2022-10-15] MEDS ORDERED: Cholecalciferol (VIT D3) 1,000 unit TAB PO SCH (12:00)
== END 2022-10-15 12:05 | disposition home or self-care (01) ==
LOC: CHOA 07:48 → MED 07:48
PROVIDERS: ADMIT Internal Medicine Hematology & Oncology; ATTEND Internal Medicine Hematology & Oncology

== ENCOUNTER 2022-10-30 10:41 | Inpatient (IN) ==
[2022-10-30 11:19] LABS: Albumin 3.2 g/dL (3.2-5.2); Calcium 8.5 mg/dL (8.6-10.3); Potassium 4.2 mmol/L (3.5-5.0); Total Bilirubin 0.4 mg/dL (0.2-1.0)
[2022-10-30 11:22] LABS: ABS Neutrophils 6.8 10^3/ul (1.5-7.7); Hematocrit 30 % (42-52); Hemoglobin 9.6 g/dL (14.0-18.0); Mean Corpuscular HGB Conc 32 g/dL (31-36); Mean Corpuscular Hemoglobin 33 pg (27-31); Mean Corpuscular Volume 102 fL (80-94); Mean Platelet Volume 10.6 fL (7.4-10.4); Platelet Count 64 10^3/uL (150-450); Red Blood Count 2.89 10^6 /uL (4.18-5.48); Red Cell Distribution Width 19 % (10-15); White Blood Count 9.8 10^3/uL (3.5-10.8)
[2022-10-30 11:25] LABS: Albumin/Globulin Ratio 1.2 (1-3); C Reactive Protein 155.91 mg/L (<8.01); Globulin 2.6 g/dL (2-4); Total Protein 5.8 g/dL (6.4-8.9); eGFR CKD-EPI 87.3 (>60)
[2022-10-30 13:51] LABS: Acanthocytes 2+; Macrocytosis 1+; Polychromasia 2+
[2022-10-30 13:52] LABS: Howell Jolly Bodies Present
[2022-10-30 13:55] LABS: ABS Eosinophils 0.1 10^3/ul (0-0.6); ABS Lymphocytes 1.1 10^3/ul (1.0-4.8); ABS Monocytes 1.8 10^3/ul (0-0.8); ABS Nucleated RBC 0.1 10^3/ul; Eosinophil % 0.8 %; Nucleated Red Blood Cells % 0.7
[2022-10-30] MEDS ORDERED: HYDROcodone/ACETAMIN 5/325 mg TAB PO PRN (15:09)
[2022-10-30] MEDS ORDERED: Cefepime 2 GM VIAL ONE (15:16)
[2022-10-30] MEDS ORDERED: Ondansetron ODT 4 mg TAB 4 MG TAB PO PRN (16:44)
[2022-10-30] MEDS ORDERED: Iohexol 350 (CONTRAST) 500 ML MDV IV ONE (17:31)
[2022-10-30] MEDS ORDERED: Cefepime 2 GM in Dextrose 2 GM/50 ML BAG IV SCH ×2 (18:00→20:00)
[2022-10-30] MEDS: Azithromycin 500 mg/250 ml NS 500 MG/250 ML BAG IVPB SCH (20:15)
[2022-10-30] MEDS: Enoxaparin 40 MG/0.4 ML SYR SUBCUT SCH (20:16)
[2022-10-30] MEDS: guaiFENesin 100 mg/5 ml LIQ unit dose cup PO PRN (21:46)
[2022-10-30] MEDS: NS 0.9% 1000 ml BAG 1,000 ML IV SCH (21:47)
[2022-10-30] MEDS: Cefepime 2 GM in Dextrose 2 GM/50 ML BAG IV SCH (21:47)
[2022-10-30] MEDS: NF: Multivitamins/Mins AREDS2 (NF) CAP PO SCH (22:18)
[2022-10-31 05:13] LABS: Hematocrit 23 % (42-52); Hemoglobin 7.3 g/dL (14.0-18.0); Mean Corpuscular HGB Conc 32 g/dL (31-36); Mean Corpuscular Hemoglobin 33 pg (27-31); Mean Corpuscular Volume 102 fL (80-94); Mean Platelet Volume 10.6 fL (7.4-10.4); Platelet Count 56 10^3/uL (150-450); Red Blood Count 2.23 10^6 /uL (4.18-5.48); Red Cell Distribution Width 19 % (10-15); White Blood Count 10.3 10^3/uL (3.5-10.8)
[2022-10-31] MEDS: Cefepime 2 GM in Dextrose 2 GM/50 ML BAG IV SCH ×3 (05:19→22:36)
[2022-10-31 05:58] LABS: Albumin 2.4 g/dL (3.2-5.2); Albumin/Globulin Ratio 1.5 (1-3); C Reactive Protein 125.51 mg/L (<8.01); Globulin 1.6 g/dL (2-4); Magnesium 1.6 mg/dL (1.9-2.7); Total Bilirubin 0.3 mg/dL (0.2-1.0); eGFR CKD-EPI 97.2 (>60)
[2022-10-31 07:53] LABS: Anisocytosis 1+
[2022-10-31 07:54] LABS: Acanthocytes 1+; Polychromasia 1+
[2022-10-31 07:57] LABS: Howell Jolly Bodies PRESENT
[2022-10-31 07:58] LABS: ABS Basophils 0.1 10^3/ul (0-0.2); ABS Eosinophils 0.1 10^3/ul (0-0.6); ABS Lymphocytes 1.5 10^3/ul (1.0-4.8); ABS Monocytes 2.1 10^3/ul (0-0.8); ABS Neutrophils 6.6 10^3/ul (1.5-7.7); ABS Nucleated RBC 0.1 10^3/ul; Eosinophil % 0.7 %; Lymphocyte % 14.7 %; Nucleated Red Blood Cells % 0.5
[2022-10-31] MEDS: NF: Multivitamins/Mins AREDS2 (NF) CAP PO SCH ×2 (08:39→23:20)
[2022-10-31] MEDS ORDERED: Irbesartan/Hydrochlor 150/12.5 TAB PO SCH (09:00)
[2022-10-31] MEDS: NS 0.9% 1000 ml BAG 1,000 ML IV SCH (11:26)
[2022-10-31] MEDS: Cholecalciferol (VIT D3) 1,000 unit TAB PO SCH (11:28)
[2022-10-31] MEDS: Azithromycin 500 mg/250 ml NS 500 MG/250 ML BAG IVPB SCH (17:41)
[2022-10-31] MEDS: Enoxaparin 40 MG/0.4 ML SYR SUBCUT SCH (17:41)
[2022-10-31] MEDS: guaiFENesin 100 mg/5 ml LIQ unit dose cup PO PRN (22:34)
[2022-11-01] MEDS: Cefepime 2 GM in Dextrose 2 GM/50 ML BAG IV SCH ×3 (05:30→23:14)
[2022-11-01 06:28] LABS: Albumin 2.7 g/dL (3.2-5.2); Albumin/Globulin Ratio 1.5 (1-3); Globulin 1.8 g/dL (2-4); Potassium 4.3 mmol/L (3.5-5.0); Total Bilirubin 0.3 mg/dL (0.2-1.0); Total Protein 4.5 g/dL (6.4-8.9); eGFR CKD-EPI 97.2 (>60)
[2022-11-01 07:55] LABS: Hematocrit 25 % (42-52); Hemoglobin 8.3 g/dL (14.0-18.0); Mean Corpuscular HGB Conc 33 g/dL (31-36); Mean Corpuscular Hemoglobin 34 pg (27-31); Mean Corpuscular Volume 102 fL (80-94); Mean Platelet Volume 10.5 fL (7.4-10.4); Platelet Count 60 10^3/uL (150-450); Red Blood Count 2.44 10^6 /uL (4.18-5.48); Red Cell Distribution Width 19 % (10-15); White Blood Count 9.2 10^3/uL (3.5-10.8)
[2022-11-01 08:20] LABS: ABS Basophils 0.1 10^3/ul (0-0.2); ABS Eosinophils 0.4 10^3/ul (0-0.6); ABS Lymphocytes 1.4 10^3/ul (1.0-4.8); ABS Monocytes 1.9 10^3/ul (0-0.8); ABS Neutrophils 5.5 10^3/ul (1.5-7.7); ABS Nucleated RBC 0.1 10^3/ul; Macrocytosis 1+; Nucleated Red Blood Cells % 0.7; Polychromasia 1+; Toxic Granulation 1+
[2022-11-01] MEDS: NF: Multivitamins/Mins AREDS2 (NF) CAP PO SCH ×2 (09:29→20:42)
[2022-11-01] MEDS: Cholecalciferol (VIT D3) 1,000 unit TAB PO SCH (13:17)
[2022-11-01] MEDS: Azithromycin 500 mg/250 ml NS 500 MG/250 ML BAG IVPB SCH (17:22)
[2022-11-01] MEDS: Enoxaparin 40 MG/0.4 ML SYR SUBCUT SCH (17:31)
[2022-11-02] MEDS: Cefepime 2 GM in Dextrose 2 GM/50 ML BAG IV SCH ×3 (05:24→22:07)
[2022-11-02 05:38] LABS: Hematocrit 25 % (42-52); Mean Corpuscular HGB Conc 32 g/dL (31-36); Mean Corpuscular Hemoglobin 33 pg (27-31); Mean Corpuscular Volume 102 fL (80-94); Mean Platelet Volume 10.8 fL (7.4-10.4); Platelet Count 68 10^3/uL (150-450); Red Blood Count 2.42 10^6 /uL (4.18-5.48); Red Cell Distribution Width 19 % (10-15); White Blood Count 9.1 10^3/uL (3.5-10.8)
[2022-11-02 06:45] LABS: Acanthocytes 3+; Microcytosis 1+
[2022-11-02 06:46] LABS: Anisocytosis 2+
[2022-11-02 06:47] LABS: ABS Basophils 0.1 10^3/ul (0-0.2); ABS Eosinophils 0.3 10^3/ul (0-0.6); ABS Lymphocytes 1.7 10^3/ul (1.0-4.8); ABS Monocytes 1.8 10^3/ul (0-0.8); ABS Neutrophils 5.3 10^3/ul (1.5-7.7); ABS Nucleated RBC 0.1 10^3/ul; Eosinophil % 3.1 %; Lymphocyte % 18.7 %; Nucleated Red Blood Cells % 0.7
[2022-11-02] MEDS: NF: Multivitamins/Mins AREDS2 (NF) CAP PO SCH (09:38)
[2022-11-02] MEDS: Cholecalciferol (VIT D3) 1,000 unit TAB PO SCH (11:50)
[2022-11-02] MEDS: Multivitamins/Minerals TAB PO SCH (13:36)
[2022-11-02] MEDS: Enoxaparin 40 MG/0.4 ML SYR SUBCUT SCH (17:33)
[2022-11-02 17:56] LABS: Albumin 2.6 g/dL (3.2-5.2); Albumin/Globulin Ratio 1.4 (1-3); Calcium 8.2 mg/dL (8.6-10.3); Globulin 1.9 g/dL (2-4); Potassium 4.2 mmol/L (3.5-5.0); Total Bilirubin 0.2 mg/dL (0.2-1.0); Total Protein 4.5 g/dL (6.4-8.9); eGFR CKD-EPI 97.2 (>60)
[2022-11-03] MEDS: Cefepime 2 GM in Dextrose 2 GM/50 ML BAG IV SCH ×2 (05:57→14:05)
[2022-11-03 06:15] LABS: Hematocrit 25 % (42-52); Hemoglobin 8.2 g/dL (14.0-18.0); Mean Corpuscular HGB Conc 33 g/dL (31-36); Mean Corpuscular Hemoglobin 34 pg (27-31); Mean Corpuscular Volume 103 fL (80-94); Mean Platelet Volume 11.1 fL (7.4-10.4); Platelet Count 76 10^3/uL (150-450); Red Blood Count 2.43 10^6 /uL (4.18-5.48); Red Cell Distribution Width 19 % (10-15); White Blood Count 8.7 10^3/uL (3.5-10.8)
[2022-11-03 06:38] LABS: ABS Basophils 0.1 10^3/ul (0-0.2); ABS Eosinophils 0.2 10^3/ul (0-0.6); ABS Lymphocytes 2.2 10^3/ul (1.0-4.8); ABS Monocytes 1.7 10^3/ul (0-0.8); ABS Neutrophils 4.5 10^3/ul (1.5-7.7); ABS Nucleated RBC 0.1 10^3/ul; Eosinophil % 2.6 %; Large Platelets Present; Lymphocyte % 25.3 %; Nucleated Red Blood Cells % 0.7; Platelet Morphology Large
[2022-11-03 06:39] LABS: Anisocytosis 1+; Burr Cells 1+; Howell Jolly Bodies Present; Macrocytosis 1+; Polychromasia 1+
[2022-11-03 06:40] LABS: Acanthocytes 1+
[2022-11-03 06:59] LABS: Albumin 2.6 g/dL (3.2-5.2); Albumin/Globulin Ratio 1.4 (1-3); Calcium 8.5 mg/dL (8.6-10.3); Globulin 1.9 g/dL (2-4); Magnesium 1.8 mg/dL (1.9-2.7); Potassium 4.2 mmol/L (3.5-5.0); Total Bilirubin 0.3 mg/dL (0.2-1.0); Total Protein 4.5 g/dL (6.4-8.9)
[2022-11-03] MEDS ORDERED: Magnesium Sulfate 2 gm BAG 2 GM/50 ML BAG IVPB ONE (07:41)
[2022-11-03] MEDS: Multivitamins/Minerals TAB PO SCH (08:20)
[2022-11-03] MEDS: Cholecalciferol (VIT D3) 1,000 unit TAB PO SCH (11:50)
[2022-11-03] MEDS: Enoxaparin 40 MG/0.4 ML SYR SUBCUT SCH (17:51)
[2022-11-04] MEDS: Multivitamins/Minerals TAB PO SCH (08:41)
[2022-11-04 11:23] VITALS: BP 106/64
[2022-11-04] MEDS: Cholecalciferol (VIT D3) 1,000 unit TAB PO SCH (12:08)
== END 2022-11-04 13:30 | disposition home or self-care (01) | DRG 177 ==
LOC: CHOA 10:41 → MED 16:33 → SUATTDRO 16:33 → MED 11-03 16:31
PROVIDERS: ADMIT Internal Medicine Medical Oncology; ATTEND Internal Medicine